=== PATIENT | female | born 1995 | race Caucasian/White ===

== ENCOUNTER → 2017-07-24 17:25 | Outpatient (CLI) | payer BC, SELFPAY ==
[2017-07-24 19:55] LABS: Thyroid Stimulating Hormone 1.29 uIU/ml (0.358-3.740)
== END ==
PROVIDERS: Family Provider Internal Medicine Adolescent Medicine; PCP Internal Medicine Adolescent Medicine; Visit Provider Obstetrics & Gynecology
DX: N93.8 Other specified abnormal uterine and vaginal bleeding (principal)
CPT/HCPCS: 36415; 84443

== ENCOUNTER → 2017-10-16 08:44 | Outpatient (POV) | payer BC, SELFPAY | PROVIDERS: Family Provider Internal Medicine Adolescent Medicine; PCP Internal Medicine Adolescent Medicine; Visit Provider Otolaryngology | DX: Z00.00 Encounter for general adult medical examination without abnormal findings (principal) ==

== ENCOUNTER → 2018-03-25 14:03 | Outpatient (CLI) | payer OTHER, SELFPAY ==
[2018-03-25 14:40] LABS: Urine Pregnancy, HCG Qual. Negative (Negative)
[2018-03-25 15:30] LABS: Basophils # 0.1 K/mm3 (0-0.2); Basophils % 0.6 % (0.1-2.0); Eosinophils # 0.2 K/mm3 (0.0-0.4); Eosinophils % 2.6 % (0.1-12.0); Hematocrit 39.3 % (37.0-47.0); Lymphocytes # 3.7 K/mm3 (0.7-4.5); Lymphocytes % 42.7 K/mm3 (10-50); Mean Corpuscular Hemoglobin 31.5 pg (27.0-31.2); Mean Corpuscular Volume 95.4 fl (81-99); Mean Platelet Volume 6.8 fl (7.4-10.4); Monocytes # 0.4 K/mm3 (0.1-1.0); Monocytes % 4.9 % (1.7-9.3); Neutrophils # 4.2 K/mm3 (1.8-7.8); Neutrophils % 49.2 % (37.0-80.0); Platelet Count 315 K/mm3 (142-424); Red Blood Count 4.12 M/mm3 (4.20-5.40); Red Cell Distribution Width 12.7 % (11.5-17.5); White Blood Count 8.6 K/mm3 (4.8-10.8)
[2018-03-25 16:20] LABS: Blood Urea Nitrogen 8 mg/dL (7-18); Creatinine,Serum 0.79 mg/dL (0.55-1.02); Estimated Glomerular Filt Rate 89 ml/min (>60); GFR (African American) 108 ML/MIN (>60)
== END ==
PROVIDERS: PCP Internal Medicine Adolescent Medicine; Visit Provider Otolaryngology
DX: R59.0 Localized enlarged lymph nodes (principal)
CPT/HCPCS: 36415; 81025; 82565; 84520; 85025

== ENCOUNTER → 2018-10-03 07:12 | Outpatient (CLI) | payer BC, SELFPAY ==
[2018-10-03 07:26] LABS: Basophils # 0.1 K/mm3 (0-0.2); Basophils % 0.9 % (0.1-2.0); Eosinophils # 0.2 K/mm3 (0.0-0.4); Eosinophils % 3.3 % (0.1-12.0); Hematocrit 43.4 % (37.0-47.0); Hemoglobin 14.7 g/dL (12.2-16.2); Lymphocytes % 52.5 % (10-50); Mean Corpuscular HGB Conc 33.8 g/dL (31.8-35.4); Mean Corpuscular Hemoglobin 31.8 pg (27.0-31.2); Mean Corpuscular Volume 94.1 fl (81-99); Mean Platelet Volume 6.6 fl (7.4-10.4); Monocytes # 0.4 K/mm3 (0.1-1.0); Monocytes % 6.2 % (1.7-9.3); Neutrophils # 2.1 K/mm3 (1.8-7.8); Neutrophils % 37.2 % (37.0-80.0); Platelet Count 284 K/mm3 (142-424); Red Blood Count 4.61 M/mm3 (4.20-5.40); Red Cell Distribution Width 12.4 % (11.5-17.5); White Blood Count 5.7 K/mm3 (4.8-10.8)
[2018-10-03 07:32] LABS: Monoscreen (Rapid) Negative (Negative)
[2018-10-03 07:35] LABS: MANUAL DIFFERENTIAL MANUAL DIFFERENTIAL (MANUAL DIFF)
[2018-10-03 07:59] LABS: Blood Urea Nitrogen 11 mg/dL (7-18); Creatinine,Serum 0.66 mg/dL (0.55-1.02); Estimated Glomerular Filt Rate 109 ml/min (>60); GFR (African American) 132 ML/MIN (>60)
[2018-10-03 09:39] LABS: Eosinophils % 4 % (0-3); Lymphocytes % 53 % (10-50); Monocytes % 5 % (2-9); Neutrophils % 37 % (42-76); Platelet Estimate Normal; RBC Morphology Normal; Total Cells Counted 100
== END ==
PROVIDERS: Visit Provider Otolaryngology
DX: J34.89 Other specified disorders of nose and nasal sinuses (principal); R22.0 Localized swelling, mass and lump, head; R22.1 Localized swelling, mass and lump, neck
CPT/HCPCS: 36415; 82565; 84520; 85007; 85025; 86318

== ENCOUNTER → 2018-10-04 13:08 | Outpatient (CLI) | payer BC, SELFPAY ==
--- NOTE | 2018-10-04 13:10 | CT_ITS ---
CT soft tissue neck wo/w con INDICATION: Palpable nodule in the right side of the neck. ITS.REASON: neck swelling ORDERING PHYSICIAN: Pacheco Parra MD PATIENT AGE: 23 years COMPARISON: None TECHNIQUE: Axial images are obtained without and with contrast. 75 mL's Optiray 350 utilized. A BB is placed along the right side of the neck at the palpable abnormality Sagittal and coronal reformatted images are reviewed as well. All CT scans at the facility use one or more dose reduction, viz: automated exposure control, ma/kV adjustment per patient size (including targeted exams where dose is matched to indication, i.e. head), or iterative reconstruction technique. FINDINGS: The visualized aspect of the orbits have an unremarkable appearance. Unremarkable nasopharynx. No tonsillar or peritonsillar mass or abscess. There are scattered small nodes in the neck bilaterally. A BB is placed along the lateral aspect of the right neck. There is a small lymph node deep and just inferior to the placed BB measuring up to 10 x 10 mm. There are other smaller nodes in the neck. There is a nonspecific 5 mm hyperdensity in the mid aspect of the parotid on both sides and could be due to small nodes. There is a right-sided submandibular lymph node which measures 12 x 6 mm. No enlarged lymph nodes are apparent. No abscess. The thyroid gland has an unremarkable appearance. No glottic or subglottic mass evident. No prevertebral soft tissue swelling. The lung apices are clear. IMPRESSION: Scattered small lymph nodes are present in the neck. There is a 10 x 10 mm lymph node present just deep and inferior to the placed BB on the right which may correspond to the palpable abnormality. IMPRESSION: A
== END ==
PROVIDERS: PCP Internal Medicine Adolescent Medicine; Visit Provider Otolaryngology
DX: J34.89 Other specified disorders of nose and nasal sinuses (principal); R22.0 Localized swelling, mass and lump, head; R22.1 Localized swelling, mass and lump, neck
CPT/HCPCS: 70492; Q9967

== ENCOUNTER → 2019-07-07 16:03 | Outpatient (CLI) | payer OTHER, SELFPAY ==
[2019-07-07 17:38] LABS: Free Thyroxine Index 2.5 ug/dL (5.93-13.13); T4 (Thyroxine) 7.5 ug/dl (4.7-13.3); Thyroid Stimulating Hormone 1.36 uIU/ml (0.358-3.740); Triiodothryronine (T3) Uptake 33 % (31-39)
[2019-07-09 09:00] LABS: Prolactin 12.4 ng/mL (4.8-23.3)
[2019-07-09 11:58] LABS: Estradiol 35.4 pg/mL (.); FSH 4.7 mIU/mL (.); LH 9.3 mIU/mL (.); Thyroid Peroxidase Antibodies 13 IU/mL (0-34)
== END ==
PROVIDERS: Visit Provider Nurse Practitioner Obstetrics & Gynecology
DX: N97.0 Female infertility associated with anovulation (principal); R53.83 Other fatigue; N93.9 Abnormal uterine and vaginal bleeding, unspecified; N92.6 Irregular menstruation, unspecified
CPT/HCPCS: 36415; 82670; 83001; 83002; 84146; 84436; 84443; 84479; 86376

== ENCOUNTER → 2019-12-18 14:51 | Outpatient (CLI) | payer OTHER, SELFPAY ==
--- NOTE | 2019-12-18 14:51 | MR_ITS ---
PROCEDURE: MR ANGIO HEAD WO CON CLINICAL INDICATION: migraine, severe headache MIGRAINE HEADACHES, PTS DAD RECENTLY OF A CEREBRAL HEMORRHAGE AT A YOUNG AGE. COMPARISON: MR HEAD/BRAIN WO CON from 12/18/2019 TECHNIQUE: 3D [id number] images are obtained with multi slab reformats without contrast FINDINGS: No aneurysm, arteriovenous malformation, or major intracranial occlusive process is evident. There is persistent origin of the left posterior cerebral artery as a normal variant.. In the mid aspect of the basilar artery there is incomplete fusion consistent with basilar artery fenestration as a normal variant. IMPRESSION: 1. Essentially negative MRA of the brain. 2. 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
--- NOTE | 2019-12-18 14:51 | MR_ITS ---
PROCEDURE: MR HEAD/BRAIN WO CON CLINICAL INDICATION: Migraine, headache MIGRAINE HEADACHES, PTS DAD RECENTLY OF A CEREBRAL HEMORRHAGE A YOUNG AGE. COMPARISON: No exams were available for comparison TECHNIQUE: Routine multiplanar multi echo sequences are performed without gadolinium enhancement. FINDINGS: No midline shift, mass effect, intracranial hemorrhage, or hydrocephalus. No evidence of acute infarction The cerebellopontine angles, cerebellum, and brainstem are unremarkable. There is normal maria-white matter differentiation with no abnormal white matter signal intensity evident. The pituitary, optic chiasm, corpus callosum, and craniocervical junction have an unremarkable appearance. No mastoid effusion or sinus air-fluid level. IMPRESSION: Negative MRI of the brain without contrast Dictated by: Luis M Payne MD 12/19/2019 14:07 Electronically signed by Luis M Payne MD in [place] 12/19/2019 14:07
== END ==
PROVIDERS: PCP Internal Medicine Adolescent Medicine; Visit Provider Specialist
DX: G43.709 Chronic migraine without aura, not intractable, without status migrainosus (principal); Z82.49 Family history of ischemic heart disease and other diseases of the circulatory system
CPT/HCPCS: 70544; 70551

== ENCOUNTER → 2020-01-06 15:20 | Outpatient (POV) | payer OTHER, SELFPAY | PROVIDERS: PCP Internal Medicine Adolescent Medicine; Visit Provider Dermatology | DX: Z00.00 Encounter for general adult medical examination without abnormal findings (principal) ==

== ENCOUNTER → 2020-01-22 08:25 | Outpatient (CLI) | payer OTHER, SELFPAY | PROVIDERS: PCP Internal Medicine Adolescent Medicine; Visit Provider Internal Medicine Adolescent Medicine | DX: Z03.818 Encounter for observation for suspected exposure to other biological agents ruled out (principal) | CPT/HCPCS: U0003 ==

== ENCOUNTER → 2020-05-07 11:19 | Outpatient (CLI) | payer OTHER, SELFPAY ==
[2020-05-07 12:16] LABS: Adenovirus,PCR Not Detected (NotDetected); Bordetella Pertussis Not Detected (NotDetected); Chlamydophila Pneumoniae, PCR Not Detected (NotDetected); Coronavirus 229E Not Detected (NotDetected); Coronavirus NL63 Not Detected (NotDetected); Coronavirus OC43 Not Detected (NotDetected); Coronovirus HKU1,PCR Not Detected (NotDetected); Human Metapneumovirus Not Detected (NotDetected); Influenza A, PCR Not Detected (NotDetected); Influenza AH1, 2009 Not Detected (NotDetected); Influenza AH1, PCR Not Detected (NotDetected); Influenza AH3,PCR Not Detected (NotDetected); Influenza B, PCR Not Detected (NotDetected); Mycoplasma Pneumoniae, PCR Not Detected (NotDetected); Parainfluenza 1, PCR Not Detected (NotDetected); Parainfluenza 2, PCR Not Detected (NotDetected); Parainfluenza 3, PCR Not Detected (NotDetected); Parainfluenza 4, PCR Not Detected (NotDetected); Respiratory Syncytial Virus Not Detected (NotDetected); Rhinovirus/Enterovirus Not Detected (NotDetected)
[2020-05-07 14:58] LABS: Coronavirus 19, PCR Detected (NotDetected)
== END ==
PROVIDERS: PCP Internal Medicine Adolescent Medicine; Referring Provider Internal Medicine Adolescent Medicine; Visit Provider Internal Medicine Adolescent Medicine
DX: Z20.828 Contact with and (suspected) exposure to other viral communicable diseases (principal); U07.1 COVID-19
CPT/HCPCS: 87581; 87633; 87798; U0003

== ENCOUNTER → 2020-08-13 15:10 | Outpatient (CLI) | payer OTHER, SELFPAY ==
--- NOTE | 2020-08-13 15:10 | US_ITS ---
PROCEDURE: US THYROID CLINICAL INDICATION: Thryoid nodule rt neck COMPARISON: US THY US THYROID from 11/19/2013 FINDINGS: Palpable nodule in the right neck measures 7 x 4 mm and is not within the thyroid gland but within the subcutaneous tissues with a focal area of increased echogenicity centrally and may be due to a lymph node. The right lobe is 2.7 x 1.1 cm. Left lobe is 3.4 x 1 cm. No thyroid mass or other significant anomaly. IMPRESSION: Unremarkable thyroid ultrasound. Palpable nodule in the right neck may represent a small lymph node Dictated by: Luis M Payne MD 08/13/2020 17:01 Luis M Payne MD in [place] 08/13/2020 17:01
== END ==
PROVIDERS: PCP Physician Assistant; Visit Provider Otolaryngology
DX: E04.1 Nontoxic single thyroid nodule (principal); R59.0 Localized enlarged lymph nodes; R59.9 Enlarged lymph nodes, unspecified
CPT/HCPCS: 76536

== ENCOUNTER → 2020-08-20 14:36 | Outpatient (CLI) | payer OTHER, SELFPAY ==
--- NOTE | 2020-08-20 14:45 | XR_ITS ---
PROCEDURE: XR ANKLE WT BEARING RT MIN 3V CLINICAL INDICATION: pain COMPARISON: CR XR FOOT WT BEARING RT 3V from 08/20/2020 FINDINGS: No fracture or dislocation. No lytic or blastic change. There is normal mineralization. The joint spaces are well-preserved. No significant degenerative/arthritic changes. No erosive changes evident. Other findings:None. IMPRESSION: No acute findings. Dictated by: Luis M Payne MD 08/20/2020 15:40 Luis M Payne MD in [place] 08/20/2020 15:40
--- NOTE | 2020-08-20 14:45 | XR_ITS ---
PROCEDURE: XR ANKLE WT BEARING LT MIN 3V CLINICAL INDICATION: pain COMPARISON: CR XR FOOT WT BEARING LT 3V from 08/20/2020 FINDINGS: No fracture or dislocation. No lytic or blastic change. There is normal mineralization. The joint spaces are well-preserved. No significant degenerative/arthritic changes. No erosive changes evident. Other findings:None. IMPRESSION: No acute findings. Dictated by: Luis M Payne MD 08/20/2020 15:40 Luis M Payne MD in [place] 08/20/2020 15:40
== END ==
PROVIDERS: PCP Internal Medicine Adolescent Medicine; Visit Provider Podiatrist
DX: M79.672 Pain in left foot (principal); M25.572 Pain in left ankle and joints of left foot; M79.671 Pain in right foot; M25.571 Pain in right ankle and joints of right foot
CPT/HCPCS: 73610; 73630

== ENCOUNTER → 2020-10-27 09:31 | Outpatient (CLI) | payer OTHER, SELFPAY ==
[2020-10-27 10:07] LABS: Basophils # 0.1 K/mm3 (0-0.2); Basophils % 0.6 % (0.1-2.0); Eosinophils # 0.2 K/mm3 (0.0-0.4); Eosinophils % 2.9 % (0.1-12.0); Hematocrit 39.9 % (37.0-47.0); Hemoglobin 13.6 g/dL (12.2-16.2); Lymphocytes # 2.9 K/mm3 (0.7-4.5); Lymphocytes % 35.3 % (10-50); Mean Corpuscular HGB Conc 34.2 g/dL (31.8-35.4); Mean Corpuscular Hemoglobin 31.8 pg (27.0-31.2); Mean Corpuscular Volume 93.1 fl (81-99); Mean Platelet Volume 6.7 fl (7.4-10.4); Monocytes # 0.6 K/mm3 (0.1-1.0); Neutrophils # 4.5 K/mm3 (1.8-7.8); Neutrophils % 54.2 % (37.0-80.0); Platelet Count 312 K/mm3 (142-424); Red Blood Count 4.29 M/mm3 (4.20-5.40); Red Cell Distribution Width 12.6 % (11.5-17.5); White Blood Count 8.2 K/mm3 (4.8-10.8)
[2020-10-27 10:57] LABS: Chloride 103 mmol/L (98-107); Potassium 3.7 mmoL/L (3.5-5.1); Sodium 138 mmol/L (136-145)
[2020-10-27 11:00] LABS: Alanine Aminotransferase 29 U/L (12-78); Albumin Level 4.5 g/dl (3.5-5.0); Albumin/Globulin Ratio 1.9 (1.1-1.8); Alkaline Phosphatase 55 U/L (38-126); Anion Gap 12.7 mEq/L (5-15); Aspartate Amino Transferase 28 U/L (14-36); Bilirubin,Total 1.5 mg/dl (0.2-1.3); Blood Urea Nitrogen 9 mg/dl (7-17); Calcium 9.4 mg/dl (8.4-10.2); Carbon Dioxide 26 mmol/L (22.0-30.0); Estimated Glomerular Filt Rate 86 ml/min (>60); GFR (African American) 104 ML/MIN (>60); Globulin 2.4 g/dL (1.3-3.2); Glucose 90 mg/dl (74-100); Total Protein,Serum 6.9 g/dl (6.3-8.2)
[2020-10-27 11:07] LABS: C-Reactive Protein 9.4 mg/L (0-4)
[2020-10-27 11:08] LABS: Erythrocyte Sedimentation Rate 16 mm/hr (0-20)
[2020-10-28 15:16] LABS: Antiscleroderma-70 Antibodies <0.2 AI (0.0-0.9)
[2020-10-29 04:14] LABS: Anti-DNA (DS) Ab Qn <1 IU/mL (0-9); Hepatitis B Surf Ab Quant <3.1 mIU/mL (Immunity>9.9); Hepatitis C Antibody <0.1 s/co ratio (0.0-0.9)
[2020-10-29 04:15] LABS: Anti-Cyclic Citrullinated Pept 2 units (0-19)
== END ==
PROVIDERS: Visit Provider Internal Medicine Adolescent Medicine
DX: I77.6 Arteritis, unspecified (principal)
CPT/HCPCS: 36415; 80053; 85025; 85651; 86140; 86200; 86225; 86235; 86706; 87380

== ENCOUNTER → 2020-11-08 13:29 | Outpatient (CLI) | payer OTHER, SELFPAY ==
--- NOTE | 2020-11-08 13:36 | CT_ITS ---
Procedure: CT ANGIO UE LT CLINICAL HISTORY: VASCULITIS Covid in May 2020 Diagnosed with covid finger in lt index finger Painful and discolored finger COMPARISON: No exams were available for comparison TECHNIQUE: IV Contrast: 100ml Isovue 370 Axial images obtained with sagittal and coronal reformats. All CT scans at the facility use one or more dose reduction, viz: automated exposure control, ma/kV adjustment per patient size (including targeted exams where dose is matched to indication, i.e. head), or iterative reconstruction technique. FINDINGS: The aortic arch, subclavian artery, axillary artery, and brachial arteries have an unremarkable appearance. The radial and ulnar and interosseous arteries are patent.. The ulnar and radial arteries are patent within the wrist and hand. The common palmar digital arteries are patent. The dorsal digital arteries are not well demonstrated. The proper palmar digital arteries are visualized to the proximal phalanges. There is decreased opacification of the proper palmar digital arteries to the index finger. The superficial palmar arch is demonstrated. The deep palmar arch is not well demonstrated but could be due to contrast timing. No acute bony anomalies. IMPRESSION: 1. Visualized anatomic arterial structures are intact in the left upper extremity with the exception of decreased enhancement of the proper palmar digital arteries to the index finger which could very well be due to vasculitis. Dictated by: Luis M Pyane MD 11/09/2020 09:44 Luis M Payne MD in [place] 11/09/2020 09:44
== END ==
PROVIDERS: PCP Internal Medicine Adolescent Medicine; Visit Provider Internal Medicine Adolescent Medicine
DX: I77.6 Arteritis, unspecified (principal)
CPT/HCPCS: 73206; Q9967

== ENCOUNTER 2021-01-10 10:22 | Emergency (ER) | payer OTHER, SELFPAY ==
[2021-01-10 12:08] VITALS: RESP 20; TEMP 37; O2SAT 99; BMI 25.6
--- NOTE | 2021-01-10 12:12 | HMH.EDUTC ---
[facility] Disposition Clinical Impression: Viral syndrome Pharyngitis Qualifiers: Pharyngitis/tonsillitis etiology: unspecified etiology Qualified Code(s): J02.9 - Acute pharyngitis, unspecified Disposition: Home, Self-Care Condition on Discharge: Good Instructions: Preventing the Spread of Coronavirus Discharge Instructions Additional Instructions: Drink plenty of fluids. Take tylenol or ibuprofen for pain or fever. Take the medications as directed. Follow up with your regular doctor. GO TO THE ER FOR ANY WORSENING SYMPTOMS Quarantine until you know the results of your covid-19 test. If it is positive, the health department should call you and give you further instructions about your length of quarantine. Prescriptions: Ondansetron [Zofran 4mg ODT] 4 mg PO Q8HP PRN #20 tab.rapdis PRN Reason: Nausea Transmission Status: Received by [facility] e(ye)BRAIN Referrals: Francois Thomas MD [Primary Care Provider] - Forms: Work/School Release Time of Disposition: 12:50 Medical Decision Making - Medical Records Medical records reviewed: No: I reviewed the patient's medical records. - Richie Inquiry Pt receiving controlled substance: No Vital Signs: 01/10/21 12:08 01/10/21 13:03 Temperature 98.6 F 98.4 F Temperature Source Oral Pulse Rate 85 Respiratory Rate 20 18 Blood Pressure 104/68 L 02 Sat by Pulse Oximetry 99 - Lab Data Lab results reviewed: Yes: I reviewed the patient's lab results. Lab Results 01/10/21 12:12: Chlamy pneumoniae PCR Not detected, Adenovirus (PCR) Not detected, B. pertussis DNA (PCR) Not detected, Coronavirus OC43 (PCR) Not detected, Coronavirus HKU1 (PCR) Not detected, Coronavirus 229E (PCR) Not detected, SARS-CoV-2 (PCR) Not detected, Coronavirus NL63 (PCR) Not detected, Human Metapneumovir PCR Not detected, Influenza A (H1) PCR Not detected, Influ A (H1N1/09) PCR Not detected, Influenza A (H3) PCR Not detected, Influenza Type A (PCR) Not detected, Influenza Type B (PCR) Not detected, M. pneumoniae (PCR) Not detected, Parainfluenza 1 (PCR) Not detected, Parainfluenza 2 (PCR) Not detected, Parainfluenza 3 (PCR) Not detected, Parainfluenza 4 (PCR) Not detected, RSV (PCR) Detected A, Entero/Rhino (PCR) Not detected 01/10/21 12:58: Strep Scn Rapid Clinic Negative Orders (Tests/Meds): ORDERS Category Date Time Status Strep Screen Confirmation Stat Micro 01/10/21 12:58 Received [facility] HPI - General Stated complaint: covid symptoms Time Seen by Provider: 01/10/21 12:13 - History of Present Illness Provider Complaint: She states that she has felt bad for the past 4 to 5 days. She initially thought she had a sinus infection, but she has been feeling worse instead of getting better since starting a z-pack 3 days ago. 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 She denies any known covid-19 exposures. - Related Data Home Medications Medication Instructions Recorded Confirmed ubrogepant 50 mg tablet 50 mg PO PRN tab 08/23/20 11/17/20 Previous Rx's Medication Instructions Recorded phentermine 37.5 mg tablet 37.5 mg PO DAILY #30 tab 11/17/20 Ondansetron [Zofran 4mg ODT] 4 mg PO Q8HP PRN #20 tab.rapdis 01/10/21 Allergies Allergy/AdvReac Type Severity Reaction Status Date / Time naproxen [From Aleve] Allergy Severe Heart Verified 01/10/21 12:11 Palpitations cetirizine [From Zyrtec] Allergy Mild Drowsiness Verified 01/10/21 12:11 [facility] History - Hepatitis A Screen Attestation statement:: This patient has been screened for Hepatitis A risk factors. I have reviewed the patient's past medical history: Yes Medical History: Reports:: Migraine Denies:: Cancer, Diabetes Mellitus Type 1, Diabetes Mellitus Type 2, Internal Pacemaker, MRSA, Seizures Other Medical History: Reports: Anemia. Denies: Blood Transfusion Reaction Comment: Anemia as child. Chronic Tonsillitis. Fibrocystic breasts. Gardasil. IBS. Deviated Septum Laterality
[2021-01-10 12:23] LABS: Adenovirus,PCR Not Detected (NotDetected); Bordetella Pertussis Not Detected (NotDetected); Chlamydophila Pneumoniae, PCR Not Detected (NotDetected); Coronavirus 19, PCR Not Detected (NotDetected); Coronavirus 229E Not Detected (NotDetected); Coronavirus NL63 Not Detected (NotDetected); Coronavirus OC43 Not Detected (NotDetected); Coronovirus HKU1,PCR Not Detected (NotDetected); Human Metapneumovirus Not Detected (NotDetected); Influenza A, PCR Not Detected (NotDetected); Influenza AH1, 2009 Not Detected (NotDetected); Influenza AH1, PCR Not Detected (NotDetected); Influenza AH3,PCR Not Detected (NotDetected); Influenza B, PCR Not Detected (NotDetected); Mycoplasma Pneumoniae, PCR Not Detected (NotDetected); Parainfluenza 1, PCR Not Detected (NotDetected); Parainfluenza 2, PCR Not Detected (NotDetected); Parainfluenza 3, PCR Not Detected (NotDetected); Parainfluenza 4, PCR Not Detected (NotDetected); Rhinovirus/Enterovirus Not Detected (NotDetected)
[2021-01-10 13:03] VITALS: BP 104/68; PULSE 85; RESP 18; TEMP 36.9
[2021-01-10 13:04] LABS: UTC Strep Screen (Rapid) Negative (Negative)
[2021-01-10 16:34] LABS: Respiratory Syncytial Virus Detected (NotDetected)
== END 2021-01-10 13:03 | disposition home or self-care (01) ==
PROVIDERS: Emergency Provider Nurse Practitioner Family; PCP Internal Medicine Adolescent Medicine
DX: J02.9 Acute pharyngitis, unspecified (principal); B34.9 Viral infection, unspecified; B97.4 Respiratory syncytial virus as the cause of diseases classified elsewhere; G43.709 Chronic migraine without aura, not intractable, without status migrainosus
CPT/HCPCS: 87581; 87633; 87798; 87880; 99202; G0463

== ENCOUNTER 2021-04-04 10:30 | Emergency (ER) | payer OTHER, SELFPAY ==
[2021-04-04 11:20] VITALS: BP 126/79; PULSE 80; RESP 20; TEMP 36.8; O2SAT 95; BMI 26.0
[2021-04-04 11:46] LABS: UTC Strep Screen (Rapid) Negative (Negative)
[2021-04-04 12:02] LABS: Coronavirus 19, PCR Not Detected (NotDetected); Influenza A, PCR Not Detected (NotDetected); Influenza B, PCR Not Detected (NotDetected)
--- NOTE | 2021-04-04 12:11 | HMH.EDUTC ---
[facility] [place] Disposition Clinical Impression: Viral syndrome Disposition: Home, Self-Care Condition on Discharge: Good Instructions: DI for Viral Syndrome, Preventing the Spread of Coronavirus Discharge Instructions Additional Instructions: Drink plenty of fluids. Take tylenol or ibuprofen for pain or fever. Take the medications as directed. Follow up with your regular doctor. GO TO THE ER FOR ANY WORSENING SYMPTOMS Quarantine until you know the results of your covid-19 test. If it is positive, the health department should call you and give you further instructions about your length of Quarantine and other things. Notify your school or workplace of your results and follow their instructions regarding return to work/school. Referrals: Francois Thomas MD [Primary Care Provider] - Forms: Work/School Release Time of Disposition: 12:12 Medical Decision Making - Medical Records Medical records reviewed: No: I reviewed the patient's medical records. - Richie Inquiry Pt receiving controlled substance: No Vital Signs: 04/04/21 11:20 04/04/21 12:15 Temperature 98.3 F 98.2 F Temperature Source Oral Oral Pulse Rate 80 Pulse Rate [Right Brachial] 80 Respiratory Rate 20 16 Blood Pressure 126/80 Blood Pressure [Right Arm] 126/79 Blood Pressure Mean [Right Arm] 94 Blood Pressure Source Automatic Cuff Blood Pressure Source [Right Arm] Automatic Cuff Blood Pressure Position Sitting Blood Pressure Position [Right Arm] Sitting 02 Sat by Pulse Oximetry 95 Oxygen Delivery Method Room Air Room Air - Lab Data Lab results reviewed: Yes: I reviewed the patient's lab results. Lab Results 04/04/21 11:30: SARS-CoV-2 (PCR) Not detected, Influenza A Untype (PCR) Not detected, Influenza Type B (PCR) Not detected 04/04/21 11:45: Strep Scn Rapid Clinic Negative Orders (Tests/Meds): ORDERS Category Date Time Status Full Resp Panel w/COVID ([facility]) Routine Lab 04/04/21 13:02 Ordered Strep Screen Confirmation Routine Micro 04/04/21 11:45 Received [facility] [place] HPI - General Stated complaint: covid test/symptoms Time Seen by Provider: 04/04/21 11:25 Mode of Arrival: Ambulatory Source of Information: Patient Limitations: No Limitations Description of Symptoms (Recalled from Triage Doc. by RN): PATIENT C/O DRY COUGH, SORE THROAT (1 WEEK), HEADACHE, AND DIARRHEA. HEENT Symptoms (Recalled from RN notes): Yes Resp Symptoms (Recalled from RN notes): No Skin Symptoms (Recalled from RN notes): No MS Symptoms (Recalled from RN notes): No Functional Status (Recalled from RN notes): WNL - History of Present Illness Provider Complaint: She states that for the past 1 week she has had a productive cough, chest congestion, scratchy throat, and she has felt bad. 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 She has not been vaccinated against covid-19. She did have covid-19 about 7 months ago and she states that she does not feel like she did at that time. - Related Data Allergies Allergy/AdvReac Type Severity Reaction Status Date / Time naproxen [From Aleve] Allergy Severe Heart Verified 02/28/21 08:58 Palpitations cetirizine [From Zyrtec] Allergy Mild Drowsiness Verified 02/28/21 08:58 - Worker's Comp Is this a Worker's Comp case?: No [facility] History - Hepatitis A Screen Drug use history?: No High risk sexual behaviors?: No History of sexually transmitted infection?: No Currently employed?: No Childcare worker?: No Do you have indoor plumbing?: Yes Do you have electricity?: Yes Attestation statement:: This patient has been screened for Hepatitis A risk factors. I have reviewed the patient's past medical history: Yes Medical History: Reports:: Migraine Denies:: Cancer, Diabetes Mellitus Type 1, Diabetes Mellitus Type 2, Internal Pacemaker, MRSA, Seizures Other Medical History: Reports: Anemia. Denies: Blood Transfusion Reaction Comment: Raynaud Laterality Cases: Bilateral: Myringotomy (Ear Tubes
[2021-04-04 12:15] VITALS: BP 126/80; PULSE 80; RESP 16; TEMP 36.8; O2SAT 98
[2021-04-04 13:10] LABS: Adenovirus,PCR Not Detected (NotDetected); Bordetella Pertussis Not Detected (NotDetected); Chlamydophila Pneumoniae, PCR Not Detected (NotDetected); Coronavirus 19, PCR Not Detected (NotDetected); Coronavirus 229E Not Detected (NotDetected); Coronavirus NL63 Not Detected (NotDetected); Coronavirus OC43 Not Detected (NotDetected); Coronovirus HKU1,PCR Not Detected (NotDetected); Human Metapneumovirus Not Detected (NotDetected); Influenza A, PCR Not Detected (NotDetected); Influenza AH1, 2009 Not Detected (NotDetected); Influenza AH1, PCR Not Detected (NotDetected); Influenza AH3,PCR Not Detected (NotDetected); Influenza B, PCR Not Detected (NotDetected); Mycoplasma Pneumoniae, PCR Not Detected (NotDetected); Parainfluenza 1, PCR Not Detected (NotDetected); Parainfluenza 2, PCR Not Detected (NotDetected); Parainfluenza 3, PCR Not Detected (NotDetected); Parainfluenza 4, PCR Not Detected (NotDetected); Respiratory Syncytial Virus Not Detected (NotDetected); Rhinovirus/Enterovirus Not Detected (NotDetected)
== END 2021-04-04 12:16 | disposition home or self-care (01) ==
PROVIDERS: Emergency Provider Nurse Practitioner Family; PCP Internal Medicine Adolescent Medicine
DX: B34.9 Viral infection, unspecified (principal); Z20.822 Contact with and (suspected) exposure to COVID-19
CPT/HCPCS: 87581; 87632; 87798; 87880; 99203; C9803; G0463; U0003; U0005

== ENCOUNTER 2021-11-04 11:01 | Emergency (ER) | payer BC, SELFPAY ==
[2021-11-04 11:10] VITALS: BP 101/76; PULSE 92; RESP 17; TEMP 36.6; O2SAT 98; BMI 25.6
--- NOTE | 2021-11-04 11:12 | HMH.EDUTC ---
[facility] [place] Clinical Impression: Viral syndrome Pharyngitis Qualifiers: Pharyngitis/tonsillitis etiology: unspecified etiology Qualified Code(s): J02.9 - Acute pharyngitis, unspecified Disposition: Home, Self-Care Condition on Discharge: Good Instructions: DI for Pharyngitis/Tonsillopharyngitis -- Adult Additional Instructions: Drink plenty of fluids. Take tylenol or ibuprofen for pain or fever. Take the medications as directed. Follow up with your regular doctor. GO TO THE ER FOR ANY WORSENING SYMPTOMS Prescriptions: Brompheniramine/Pseudoephed/Dm [Bromfed Dm Cough Syrup] 5 ml PO Q6HP PRN #240 ml PRN Reason: Cough Transmission Status: Received by [facility] Amoxicillin [Amoxicillin 875MG Tab] 875 mg PO Q12H #20 tab Transmission Status: Received by [facility] methylPREDNISolone [Medrol] 4 mg PO DIRECTED 6 Days #21 packet Transmission Status: Received by [facility] Referrals: Francois Thomas MD [Primary Care Provider] - Forms: Work/School Release Time of Disposition: 11:36 Medical Decision Making - Medical Records Medical records reviewed: No: I reviewed the patient's medical records. - Richie Inquiry Pt receiving controlled substance: No Vital Signs: 11/04/21 11:10 11/04/21 11:43 Temperature 97.8 F 97.8 F Temperature Source Oral Pulse Rate 92 H Pulse Rate [Left Radial] 92 H Respiratory Rate 17 17 Blood Pressure 101/76 L Blood Pressure [Right Arm] 101/76 L Blood Pressure Mean [Right Arm] 84 02 Sat by Pulse Oximetry 98 - Lab Data Lab results reviewed: Yes: I reviewed the patient's lab results. Lab Results 11/04/21 11:08: Group A Strep Rapid Negative Orders (Tests/Meds): ORDERS Category Date Time Status Covid-19 Nasal PCR ([facility]) Routine Lab 11/04/21 11:34 Ordered Strep Screen Confirmation Stat Micro 11/04/21 11:08 [place] [facility] [place] - General Stated complaint: ear pain, sore throat, fever, cough Time Seen by Provider: 11/04/21 11:12 - History of Present Illness Provider Complaint: She states that for the past 3 days she has had a worsening sore throat, chills, low grade fever, and fatigue. She states that she feels like she has strep throat. She usually gets it every spring. - Related Data Previous Rx's Medication Instructions Recorded clomiphene citrate 50 mg tablet 50 mg PO DAILY 5 Days #5 tab 10/04/21 Amoxicillin [Amoxicillin 875MG 875 mg PO Q12H #20 tab 11/04/21 Tab] Brompheniramine/Pseudoephed/Dm 5 ml PO Q6HP PRN #240 ml 11/04/21 [Bromfed Dm Cough Syrup] methylPREDNISolone [Medrol] 4 mg PO DIRECTED 6 Days #21 11/04/21 packet Allergies Allergy/AdvReac Type Severity Reaction Status Date / Time naproxen Allergy Severe Heart Verified 11/04/21 11:17 Palpitations [facility] History - Hepatitis A Screen Attestation statement:: This patient has been screened for Hepatitis A risk factors. I have reviewed the patient's past medical history: Yes Medical History: Reports:: Migraine Denies:: Cancer, Diabetes Mellitus Type 1, Diabetes Mellitus Type 2, Internal Pacemaker, MRSA, Seizures Other Medical History: Reports: Anemia. Denies: Blood Transfusion Reaction Comment: Raynaud Laterality Cases: Bilateral: Myringotomy (Ear Tubes), Other Other Surgeries: Yes: No Previous Surgery, Colonoscopy, Plastic Surgery, Other. No: Pacemaker Amputation: No Fractures: No Comment: Ear tubes X 3 as child. Plastic surgery on left cheek and nose as child--1998. [place] teeth removal--2011. Nevus removal from lip (benign)--2012. Colonoscopy w/ polyps removed (benign)-03/2017. Nasal Septo---2019 - Social History Smoking Status: Never smoker Alcohol Intake: current Alcohol Intake Frequency:: a few times a month Substance Use Type: denies use Occupational Status: other Housing: house Household Members: significant other Family Hx:: Cancer, Diabetes, Heart Attack, Hyperlipidemia, Hypertension
[2021-11-04 11:26] LABS: Strep Scrn Group A (Rapid) Negative (Negative)
[2021-11-04 11:43] VITALS: BP 101/76; PULSE 92; RESP 17; TEMP 36.6
== END 2021-11-04 11:46 | disposition home or self-care (01) ==
PROVIDERS: Emergency Provider Nurse Practitioner Family; PCP Internal Medicine Adolescent Medicine
DX: J02.9 Acute pharyngitis, unspecified (principal); B34.9 Viral infection, unspecified
CPT/HCPCS: 87430; 99212; G0463

== ENCOUNTER → 2021-11-21 14:30 | Outpatient (CLI) | payer BC, SELFPAY ==
[2021-11-21 16:07] LABS: HCG,Quantitative 230 mIU/ml (0-5.42)
== END ==
PROVIDERS: PCP Internal Medicine Adolescent Medicine; Visit Provider Obstetrics & Gynecology
DX: N92.6 Irregular menstruation, unspecified (principal); J06.9 Acute upper respiratory infection, unspecified
CPT/HCPCS: 36415; 84702

== ENCOUNTER → 2021-11-23 16:00 | Outpatient (CLI) | payer BC, SELFPAY ==
[2021-11-23 17:32] LABS: HCG,Quantitative 655 mIU/ml (0-5.42)
== END ==
LOC: LAB 16:01
PROVIDERS: PCP Internal Medicine Adolescent Medicine; Visit Provider Obstetrics & Gynecology
DX: Z34.90 Encounter for supervision of normal pregnancy, unspecified, unspecified trimester (principal)
CPT/HCPCS: 36415; 84702

== ENCOUNTER → 2021-12-08 15:36 | Outpatient (CLI) | payer BC, SELFPAY ==
[2021-12-08 16:21] LABS: Basophils # 0.3 K/mm3 (0-0.2); Basophils % 2.3 % (0.1-2.0); Eosinophils # 0.2 K/mm3 (0.0-0.4); Eosinophils % 1.3 % (0.1-12.0); Hematocrit 41.3 % (37.0-47.0); Hemoglobin 13.5 g/dL (12.2-16.2); Lymphocytes # 3.1 K/mm3 (0.7-4.5); Lymphocytes % 24.4 % (10-50); Mean Corpuscular HGB Conc 32.7 g/dL (31.8-35.4); Mean Corpuscular Hemoglobin 32.7 pg (27.0-31.2); Mean Corpuscular Volume 99.8 fl (81-99); Mean Platelet Volume 6.9 fl (7.4-10.4); Monocytes # 0.6 K/mm3 (0.1-1.0); Monocytes % 5.1 % (1.7-9.3); Neutrophils # 8.4 K/mm3 (1.8-7.8); Neutrophils % 66.9 % (37.0-80.0); Platelet Count 409 K/mm3 (142-424); Red Blood Count 4.14 M/mm3 (4.20-5.40); Red Cell Distribution Width 13.2 % (11.5-17.5); White Blood Count 12.6 K/mm3 (4.8-10.8)
[2021-12-10 08:30] LABS: HIV Screen 4th Generation wRfx Non Reactive (Non Reactive); Hepatitis B Surface Antigen Negative (Negative); Hepatitis C Antibody 0.1 s/co ratio (0.0-0.9); Rubella Antibodies, IgG 3.53 index (Immune >0.99)
[2021-12-10 13:09] LABS: Rapid Plasma Reagin Ab Titer Non Reactive (NonRea<1:1)
== END ==
PROVIDERS: PCP Internal Medicine Adolescent Medicine; Visit Provider Obstetrics & Gynecology
DX: Z34.90 Encounter for supervision of normal pregnancy, unspecified, unspecified trimester (principal)
CPT/HCPCS: 85025; 86592; 86703; 86762; 86850; 87340; 87380; G0432

== ENCOUNTER → 2021-12-22 14:34 | Outpatient (CLI) | payer BC, OTHER, SELFPAY ==
[2021-12-24 08:18] LABS: Progesterone 27.8 ng/mL (.)
== END ==
PROVIDERS: PCP Internal Medicine Adolescent Medicine; Visit Provider Obstetrics & Gynecology
DX: Z34.90 Encounter for supervision of normal pregnancy, unspecified, unspecified trimester (principal)
CPT/HCPCS: 36415; 84144; 84702

== ENCOUNTER → 2021-12-27 11:05 | Outpatient (CLI) | payer BC, OTHER, SELFPAY ==
--- NOTE | 2021-12-27 11:08 | US_ITS ---
FINAL REPORT CLINICAL HISTORY: Viability FINDINGS: Sonographic images of the pelvis were obtained. A single, living intrauterine is noted. A yolk sac is present and measures 0.74 cm. [place] to rump length measures 22.18 mm which corresponds to 9 weeks 0 days gestation. Heartbeat is identified and measures 176 beats per minute. There is a crescentic hypo echogenicity adjacent to the gestational sac which could represent a very small subchorionic hemorrhage. The right ovary measures 3.7 x 2.3 x 3.5 cm and is within normal limits. The left ovary measures 3.4 x 3.0 x 3.4 cm and is within normal limits. IMPRESSION: Single, living, intrauterine gestation with 9 weeks 0 days gestational age. Reviewed, Interpreted and Dictated by Oralia Scruggs MD Transcribed by Azra Hoffmann Authenticated and [facility]
== END ==
PROVIDERS: PCP Internal Medicine Adolescent Medicine; Visit Provider Obstetrics & Gynecology
DX: Z34.90 Encounter for supervision of normal pregnancy, unspecified, unspecified trimester (principal)
CPT/HCPCS: 36415; 76801; 84702

== ENCOUNTER 2022-01-13 15:00 | Emergency (ER) | payer BC, OTHER, SELFPAY ==
--- NOTE | 2022-01-13 15:29 | HMH.EDUTC ---
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 Follow their directions about serial lab work. Referrals: Francois Thomas MD [Primary Care Provider] - Time of Disposition: 15:42 Medical Decision Making - Medical Records Medical records reviewed: No: I reviewed the patient's medical records. - Richie Inquiry Pt receiving controlled substance: No Vital Signs: 01/13/22 15:31 01/13/22 15:49 Temperature 98.2 F 98.2 F Temperature Source Oral Pulse Rate 87 Pulse Rate [Left] 103 H Respiratory Rate 15 15 Blood Pressure 116/50 L Blood Pressure [Right Arm] 116/50 L Blood Pressure Mean [Right Arm] 72 02 Sat by Pulse Oximetry 95 - Lab Data Lab Results 01/13/22 15:48: HIV 1&2 Ag/Ab, 4th Gen Non reactive Orders (Tests/Meds): ORDERS Category Date Time Status HIV Panel [id number] Stat Lab 01/13/22 15:48 Results Hepatitis Panel (4) Stat Lab 01/13/22 15:48 Results [facility] [place] HPI - General Stated complaint: WC 01/13/22 needlestick Time Seen by Provider: 01/13/22 15:33 - History of Present Illness Provider Complaint: She states that she got a needle stick at her work and she is here to have the necessary lab work drawn. Her tetanus immunization is up to date. - Related Data Home Medications Medication Instructions Recorded Confirmed PNV 153-FA 400 mcg-om3 35 mg-dha tab PO 12/08/21 01/11/22 25 mg-epa 5 mg-fish oil chew tablet Previous Rx's Medication Instructions Recorded doxylamine succinate 25 mg tablet 12.5 mg PO HS #30 tab 12/08/21 pyridoxine (vitamin B6) 25 mg 25 mg PO TID #90 tab 12/08/21 tablet ondansetron 4 mg disintegrating 4 mg PO Q8H PRN #20 tab 01/11/22 tablet Allergies Allergy/AdvReac Type Severity Reaction Status Date / Time naproxen Allergy Severe Heart Verified 01/13/22 15:37 Palpitations [facility] History - Hepatitis A Screen Attestation statement:: This patient has been screened for Hepatitis A risk factors. I have reviewed the patient's past medical history: Yes Medical History: Reports:: Migraine Denies:: Cancer, Diabetes Mellitus Type 1, Diabetes Mellitus Type 2, Internal Pacemaker, MRSA, Seizures Other Medical History: Reports: Anemia. Denies: Blood Transfusion Reaction Comment: Raynaud Laterality Cases: Bilateral: Myringotomy (Ear Tubes), Other Other Surgeries: Yes: No Previous Surgery, Colonoscopy, Plastic Surgery, Other. No: Pacemaker Amputation: No Fractures: No Comment: Ear tubes X 3 as child. Plastic surgery on left cheek and nose as child--1998. [place] teeth extraction--2011. Nevus removal from lip (benign)--2012. Colonoscopy w/ polyps removed (benign)-03/2017. Nasal Septo---2019 - Social History Smoking Status: Never smoker Alcohol Intake: current Alcohol Intake Frequency:: a few times a month Substance Use Type: denies use Occupational Status: other Housing: house Household Members: significant other Family Hx:: Cancer, Diabetes, Heart Attack, Hyperlipidemia, Hypertension, Kidney Disease, Stroke, Thyroid Disorder, Substance abuse, Alcoholism, Anemia, Asthma, Bleeding Disorder [employer] history: No [employer] history Comment: LMP: 07/12/2017 ROS Obtained: Yes All systems reviewed & no additional complaints - Constitutional Constitutional: Reports system reviewed and no additional complaints, except as docu - Eyes Eyes: Reports system reviewed and no additional complaints, except as docu - ENT Ears, Nose, Mouth, and Throat: Reports system reviewed and no additional complaints, except as docu - Cardiovascular Cardiovascular: Reports system reviewed and no additional complaints, except as docu - Respiratory Respiratory: Reports system reviewed and no additional complaints, except as docu - Gastroint
[2022-01-13 15:31] VITALS: BP 116/50; PULSE 103; RESP 15; TEMP 36.8; O2SAT 95; BMI 27.1
[2022-01-13 15:49] VITALS: BP 116/50; PULSE 87; RESP 15; TEMP 36.8
[2022-01-15 10:10] LABS: HIV Screen 4th Generation wRfx Non Reactive (Non Reactive)
[2022-01-28 17:56] LABS: Hep A Ab, IgM Negative; Hepatitis B Core Antibody IgM Negative; Hepatitis B Surface Antigen Negative; Hepatitis C Antibody <0.1
== END 2022-01-13 15:55 | disposition home or self-care (01) ==
PROVIDERS: Emergency Provider Nurse Practitioner Family; PCP Internal Medicine Adolescent Medicine
DX: S61.239A Puncture wound without foreign body of unspecified finger without damage to nail, initial encounter (principal); D64.9 Anemia, unspecified; I73.00 Raynaud's syndrome without gangrene; G43.909 Migraine, unspecified, not intractable, without status migrainosus; Z88.6 Allergy status to analgesic agent; Z82.49 Family history of ischemic heart disease and other diseases of the circulatory system; Z84.1 Family history of disorders of kidney and ureter; Z80.9 Family history of malignant neoplasm, unspecified; Z83.3 Family history of diabetes mellitus; Z83.49 Family history of other endocrine, nutritional and metabolic diseases; Z82.5 Family history of asthma and other chronic lower respiratory diseases; Z83.438 Family history of other disorder of lipoprotein metabolism and other lipidemia; Z81.3 Family history of other psychoactive substance abuse and dependence; Z81.1 Family history of alcohol abuse and dependence; W46.1XXA Contact with contaminated hypodermic needle, initial encounter
CPT/HCPCS: 80074; 86703; 99213; G0432; G0463

== ENCOUNTER 2022-01-20 08:59 | Outpatient (CLI) | payer BC, OTHER, SELFPAY ==
[2022-01-20 09:56] VITALS: BMI 28.9
[2022-01-20 10:02] LABS: Microscopic, Urine URINE MICROSCOPIC (MICROSCOPIC)
[2022-01-20 10:04] LABS: Appearance,Urine CLOUDY (Clear); Bilirubin,Urine Negative (Negative); Blood, Urine Negative (Negative); Color,Urine YELLOW (Yellow); Glucose,Urine (UA) Negative (Negative); Ketones,Urine Negative (Negative); Leukocyte Esterase,Urine 1+ (Negative); Nitrate,Urine Negative (Negative); PH,Urine 7.5 (5.0-8.5); Protein,Urine TRACE (Negative); Urobilinogen,Urine 0.2 EU/dl (0.2)
[2022-01-20 10:14] LABS: Bacteria,Urine 2+ /lpf; Mucus,Urine 1+ /lpf
[2022-01-20 10:15] LABS: Amorphous Sediment,Urine Trace /lpf; RBC,Urine Occasional #/hpf (0-3)
[2022-01-20 10:17] LABS: Benzodiazepines Screen,Urine Negative ng/ml (<200)
[2022-01-20 10:18] LABS: Amphetamine/Metha Screen,Urine Negative ng/ml (<1000)
[2022-01-20 10:19] LABS: Barbiturates Screen,Urine Negative ng/ml (<200); Cannabinoid Screen,Urine Negative ng/ml (<50)
[2022-01-20 10:20] VITALS: BP 109/70; PULSE 89; RESP 18; TEMP 36.7; O2SAT 97; BMI 28.9
[2022-01-20 10:20] LABS: Cocaine Screen,Urine Negative ng/ml (<300)
[2022-01-20 10:21] LABS: Methadone Screen,Urine Negative ng/ml (<300); Opiate Screen,Urine Negative ng/ml (<300)
[2022-01-20 10:22] LABS: Phencyclidine Screen,Urine Negative ng/ml (<25)
== END 2022-01-20 11:20 | disposition home or self-care (01) ==
LOC: OBOUT 09:01 → OB 09:02
PROVIDERS: PCP Internal Medicine Adolescent Medicine; Visit Provider Obstetrics & Gynecology
DX: O21.8 Other vomiting complicating pregnancy (principal); Z3A.12 12 weeks gestation of pregnancy
CPT/HCPCS: 80305; 81001; 87086; 96365; G0463; J2405

== ENCOUNTER 2022-03-13 08:04 | Emergency (ER) | payer BC, OTHER, SELFPAY ==
[2022-03-13 08:25] VITALS: BP 126/79; PULSE 87; RESP 18; TEMP 36.7; O2SAT 98; BMI 30.9
[2022-03-13 08:26] LABS: UTC Strep Screen (Rapid) Negative (Negative)
--- NOTE | 2022-03-13 08:37 | EXP.UTC ---
Discharge Plan Disposition Patient Disposition: Home, Self-Care Condition: Good Prescriptions Prescriptions: New amoxicillin 500 mg capsule 500 mg PO Q8H Qty: 30 0RF No Action Gummies 400 mcg-35 mg- 25 mg-5 mg tablet,chewable 1 tab PO DAILY ondansetron 4 mg tablet,disintegrating 4 mg PO Q8H PRN (Reason: nausea and vomiting) Qty: 20 2RF pyridoxine (vitamin B6) 25 mg tablet 25 mg PO TID PRN (Reason: Nausea) Unisom (doxylamine) 25 mg tablet 12.5 mg PO HS PRN (Reason: Sleep) magnesium oxide 400 mg magnesium tablet 800 mg PO BID PRN (Reason: diet) Referrals Follow up/Referrals: Francois Thomas MD [Primary Care Provider] - See instructions Activity Restrictions/Add. Instructions Additional Instructions/Restrictions: *Monitor Temp, Over the counter Motrin or Tylenol as directed/as needed Tylenol every 4 hours and Motrin every 6 hours (as long as your family doctor has told you that you can take it) for fever or pain. and straight to ER if unable to lower temp less than 101.0 after medication given *Warm salt water gargles may help to soothe the throat *Throat Lozenges? *Warm fluids like tea with honey may help to soothe the throat? *Sleep elevated *Humidifier/Vaporizer *Flonase 2 sprays in each nostril daily but be aware that it may take 2-3 days before you notice improvement Your throat swab was sent for culture. Those results are typically sent to your primary care. Be sure to follow up in 2-3 days with your family doctor/primary care physician if no improvement so they can review those result and treat if necessary. If you don?t have a primary care doctor, I recommend you get one but in the mean time, you will have to return to a walk in clinic Follow up IMMEDIATELY for new or worsening symptoms or no Noticeable improvement over the next 48-72 hours. 911 for difficulty breathing or swallowing Clinical Impressions Clinical Impression: Otitis media Qualifiers: Otitis media type: unspecified Laterality: bilateral Qualified Code(s): H66.93 - Otitis media, unspecified, bilateral Instructions Patient Instructions: Sore Throat, Middle Ear Infection Discharge ED Provider: Marci March [facility] HPI General Stated complaint: Ear pain, sore throat, dry cough Mode of Arrival: Ambulatory Source of Information: Patient Limitations: No Limitations Time Seen by Provider: 03/13/22 08:37 Description of Symptoms (Recalled from Triage Doc. by RN): pt comes in with c/o sore throat, non productive cough, ear pain for two days. [facility] of hospital. HEENT Symptoms (Recalled from RN notes): Yes Resp Symptoms (Recalled from RN notes): Yes Skin Symptoms (Recalled from RN notes): No MS Symptoms (Recalled from RN notes): No Functional Status (Recalled from RN notes): n/a History of Present Illness Provider Complaint: patient states that she has been having pain and pressure in both ears, sore throat non productive cough and sinus congestion that has continued to get worse over the last week State that she took COVID test on and it was negative but still having pain in her ears and throat today so she came in patient is 20wks OB Related Data Home Medications Medication Instructions Recorded Confirmed PNV 153-FA 400 mcg-om3 35 mg-dha 1 tab PO DAILY Supplement 12/08/21 03/13/22 25 mg-epa 5 mg-fish oil chew tablet ( Gummies) doxylamine succinate 25 mg tablet 12.5 mg PO HS PRN Sleep 03/13/22 03/13/22 (Unisom (doxylamine)) magnesium oxide 800 mg PO BID PRN diet 03/13/22 03/13/22 pyridoxine (vitamin B6) 25 mg 25 mg PO TID PRN Nausea 03/13/22 03/13/22 tablet Previous Rx's Medication Instructions Recorded ondansetron 4 mg disintegrating 4 mg PO Q8H PRN nausea and 02/17/22 tablet vomiting #20 tabs amoxicillin 500 mg capsule 500 mg PO Q8H #30 caps 03/13/22 Allergies Allergy/AdvReac Type Severity Reaction Status Date / Time julio Beckman
[2022-03-13 08:51] VITALS: BP 126/78; PULSE 87; RESP 18; TEMP 36.7
== END 2022-03-13 08:51 | disposition home or self-care (01) ==
PROVIDERS: Emergency Provider Nurse Practitioner; PCP Internal Medicine Adolescent Medicine
DX: J02.9 Acute pharyngitis, unspecified (principal); H66.93 Otitis media, unspecified, bilateral; R09.81 Nasal congestion; R11.2 Nausea with vomiting, unspecified; R05.9 Cough, unspecified; Z88.6 Allergy status to analgesic agent
CPT/HCPCS: 87880; 99213; G0463

== ENCOUNTER → 2022-03-14 10:11 | Outpatient (CLI) | payer OTHER, SELFPAY ==
--- NOTE | 2022-03-14 10:11 | US_ITS ---
FINAL REPORT CLINICAL HISTORY: 20 week anatomy scan FINDINGS: There is a single live intrauterine gestation. Presentation is breech. The cervix is closed and measures 5.5 cm. Placenta is anterior grade 1. movement is noted. Heart rate is detected at 156 beats per minute. Three-vessel cord with satisfactory umbilical cord insertion. Four-chamber heart is noted. ABDOMEN: Both kidneys are unremarkable. Stomach is unremarkable. SPINE: No anomalies identified. AMNIOTIC FLUID: Appropriate amount. MEASUREMENTS: ULTRASOUND AGE: 20 weeks 0 days. GESTATION AGE: 20 weeks 3 days. ESTIMATED WEIGHT: 319 g GROWTH PERCENTILE: 19 % BPD: 4.73 cm corresponding to 20 weeks 3 days. OFD: 5.65 cm corresponding to 19 weeks 5 days. HC: 16.37 cm corresponding to 19 weeks 1 day. AC: 14.49 cm corresponding to 19 weeks 6 days. FL: 3.25 cm corresponding to 20 weeks 1 day. CEREBELLUM: 2.02 cm corresponding to 20 weeks 4 days. HUMERUS: 3.14 cm corresponding to 20 weeks 4 days. HC/AC: 1.13 CI: 84% FL/BPD: 69% FL/AC: 22% IMPRESSION: Single living IUP with an ultrasound age of 22 weeks 0 days. Reviewed, Interpreted and Dictated by Jair Ferguson III, MD Transcribed by Ninfa John Authenticated and [facility]
== END ==
PROVIDERS: PCP Internal Medicine Adolescent Medicine; Visit Provider Obstetrics & Gynecology
DX: Z34.90 Encounter for supervision of normal pregnancy, unspecified, unspecified trimester (principal); Z3A.20 20 weeks gestation of pregnancy
CPT/HCPCS: 76811

== ENCOUNTER → 2022-04-20 07:50 | Outpatient (CLI) | payer OTHER, SELFPAY ==
[2022-04-20 08:09] LABS: Basophils # 0.1 K/mm3 (0-0.2); Basophils % 0.6 % (0.1-2.0); Eosinophils # 0.3 K/mm3 (0.0-0.4); Eosinophils % 2.7 % (0.1-12.0); Hematocrit 35.5 % (37.0-47.0); Hemoglobin 11.7 g/dL (12.2-16.2); Lymphocytes # 2.4 K/mm3 (0.7-4.5); Lymphocytes % 24.6 % (10-50); Mean Corpuscular HGB Conc 33.1 g/dL (31.8-35.4); Mean Corpuscular Volume 96.8 fl (81-99); Mean Platelet Volume 7.9 fl (7.4-10.4); Monocytes # 0.4 K/mm3 (0.1-1.0); Monocytes % 4.5 % (1.7-9.3); Neutrophils # 6.7 K/mm3 (1.8-7.8); Neutrophils % 67.6 % (37.0-80.0); Platelet Count 330 K/mm3 (142-424); Red Blood Count 3.67 M/mm3 (4.20-5.40); Red Cell Distribution Width 14.5 % (11.5-17.5); White Blood Count 9.9 K/mm3 (4.8-10.8)
[2022-04-20 08:16] LABS: Glucose,Fasting 82 mg/dl (74-100)
[2022-04-20 09:53] LABS: Glucose 1 Hour 159 mg/dL (74-100)
== END ==
PROVIDERS: PCP Internal Medicine Adolescent Medicine; Visit Provider Obstetrics & Gynecology
DX: Z34.90 Encounter for supervision of normal pregnancy, unspecified, unspecified trimester (principal)
CPT/HCPCS: 36415; 82951; 85025

== ENCOUNTER → 2022-04-21 07:37 | Outpatient (CLI) | payer OTHER, SELFPAY ==
[2022-04-21 09:35] LABS: Glucose 1 Hour 137 mg/dL (74-100); Glucose,Fasting 83 mg/dl (74-100)
[2022-04-21 11:34] LABS: Glucose 2 Hour 114 mg/dL (74-100)
[2022-04-21 11:52] LABS: Glucose 3 Hour 102 mg/dL (74-100)
== END ==
PROVIDERS: PCP Internal Medicine Adolescent Medicine; Visit Provider Obstetrics & Gynecology
DX: Z34.90 Encounter for supervision of normal pregnancy, unspecified, unspecified trimester (principal); Z3A.24 24 weeks gestation of pregnancy
CPT/HCPCS: 36415; 82951

== ENCOUNTER 2022-05-30 08:17 | Emergency (ER) | payer OTHER, SELFPAY ==
[2022-05-30 08:32] VITALS: BP 122/75; PULSE 120; RESP 16; TEMP 36.8; O2SAT 98; BMI 31.1
[2022-05-30 08:35] LABS: Adenovirus,PCR Not Detected (NotDetected); Bordetella Pertussis Not Detected (NotDetected); Chlamydophila Pneumoniae, PCR Not Detected (NotDetected); Coronavirus 229E Not Detected (NotDetected); Coronavirus NL63 Not Detected (NotDetected); Coronavirus OC43 Not Detected (NotDetected); Coronovirus HKU1,PCR Not Detected (NotDetected); Human Metapneumovirus Not Detected (NotDetected); Influenza A, PCR Not Detected (NotDetected); Influenza AH1, 2009 Not Detected (NotDetected); Influenza AH1, PCR Not Detected (NotDetected); Influenza AH3,PCR Not Detected (NotDetected); Influenza B, PCR Not Detected (NotDetected); Mycoplasma Pneumoniae, PCR Not Detected (NotDetected); Parainfluenza 1, PCR Not Detected (NotDetected); Parainfluenza 2, PCR Not Detected (NotDetected); Parainfluenza 3, PCR Not Detected (NotDetected); Parainfluenza 4, PCR Not Detected (NotDetected); Respiratory Syncytial Virus Not Detected (NotDetected); Rhinovirus/Enterovirus Not Detected (NotDetected)
--- NOTE | 2022-05-30 08:38 | EXP.UTC ---
Discharge Plan Disposition Patient Disposition: Home, Self-Care Condition: Good Prescriptions Prescriptions: No Action hydrocortisone 2.5 % cream 1 applic topical BID PRN (Reason: rash) Qty: 30 0RF hydroxyzine pamoate [Vistaril] 25 mg capsule 25 mg PO Q8H PRN (Reason: itching) Qty: 20 0RF ondansetron 4 mg tablet,disintegrating 4 mg PO Q8H PRN (Reason: nausea and vomiting) Qty: 20 2RF vit no.[id number] 28 mg iron- 800 mcg tablet 1 tab PO DAILY 90 Days Qty: 90 1RF pyridoxine (vitamin B6) 25 mg tablet 25 mg PO TID PRN (Reason: Nausea) Referrals Follow up/Referrals: Francois Thomas MD [Primary Care Provider] - See instructions Activity Restrictions/Add. Instructions Additional Instructions/Restrictions: Drink plenty of fluids. Take tylenol or ibuprofen for pain or fever. Take the medications as directed. Follow up with your regular doctor. GO TO THE ER FOR ANY WORSENING SYMPTOMS Clinical Impressions Clinical Impression: Acute viral syndrome Stand Alone Forms Stand Alone Forms: Work/School Release Instructions Patient Instructions: DI for Viral Syndrome Discharge ED Provider: David Marei [facility] General Stated complaint: Congestion, sore throat, cough, ear pain Mode of Arrival: Ambulatory Source of Information: Patient Limitations: No Limitations Time Seen by Provider: 05/30/22 08:37 Description of Symptoms (Recalled from Triage Doc. by RN): pt had covid exposure. symptoms include nasal congestion, bilateral ear pain, sore throat, nonproductive cough. pt is 31 weeks HEENT Symptoms (Recalled from RN notes): Yes Resp Symptoms (Recalled from RN notes): Yes Skin Symptoms (Recalled from RN notes): No MS Symptoms (Recalled from RN notes): No Functional Status (Recalled from RN notes): n/a History of Present Illness Provider Complaint: She states that for the past 2 days she has had nasal congestion, bilateral ear pain, sore throat, nonproductive cough. She is 31 weeks . Related Data Home Medications Medication Instructions Recorded Confirmed pyridoxine (vitamin B6) 25 mg 25 mg PO TID PRN Nausea 03/13/22 05/24/22 tablet Previous Rx's Medication Instructions Recorded ondansetron 4 mg disintegrating 4 mg PO Q8H PRN nausea and 02/17/22 tablet vomiting #20 tabs hydrocortisone 2.5 % topical cream 1 applic topical BID PRN rash #30 04/12/22 grams hydroxyzine pamoate 25 mg capsule 25 mg PO Q8H PRN itching #20 caps 04/12/22 (Vistaril) vits no.179-ferrous 1 tab PO DAILY 90 days #90 tabs 05/18/22 fumarate 28 mg-folic acid 800 mcg tablet Allergies Allergy/AdvReac Type Severity Reaction Status Date / Time naproxen Allergy Severe Heart Verified 05/30/22 08:36 Palpitations Worker's Comp Is this a Worker's Comp case?: No [facility] Disclaimer: The information contained in this section may have been updated after the patient was seen, as this information can be updated by other users. Medical History Atopic dermatitis Nausea and vomiting Surgical History History of removal of skin mole Hx of colonoscopy Hx of cosmetic plastic surgery Hx of nasal septoplasty Hx of wisdom tooth extraction Social History Smoking Status: Never smoker second hand exposure: No alcohol intake: current substance use type: denies use current occupational status: employed Travel in the last 8 weeks: None household members: significant other housing: house current occupation: [employer] current occupational exposures/hazards: No caffeine: Yes ROS Obtained: Yes All systems reviewed & no additional complaints except as documented Constitutional Constitutional: Reports chills and Denies fever(s) Eyes Eyes: Denies eye discharge ENT Ears, Nose, Mouth, and
[2022-05-30 09:26] VITALS: BP 122/75; PULSE 120; RESP 16; TEMP 36.8
[2022-05-30 13:35] LABS: Coronavirus 19, PCR Detected (NotDetected)
== END 2022-05-30 09:31 | disposition home or self-care (01) ==
PROVIDERS: Emergency Provider Nurse Practitioner Family; PCP Internal Medicine Adolescent Medicine
DX: U07.1 COVID-19 (principal)
CPT/HCPCS: 87581; 87632; 87798; 99212; C9803; G0463; U0003; U0005

== ENCOUNTER → 2022-06-09 12:29 | Outpatient (CLI) | payer OTHER, SELFPAY ==
--- NOTE | 2022-06-09 12:29 | US_ITS ---
FINAL REPORT CLINICAL HISTORY: lga FINDINGS: There is a single live intrauterine gestation. Presentation is cephalic. The cervix is closed and measures 3.93. Placenta is anterior, grade 2. movement is noted. RITCHIE is 13.42. Heart rate detected at 127 beats per minute. The visualized anatomy is unremarkable. MEASUREMENTS: ULTRASOUND AGE: 32 weeks 4 days. GESTATION AGE: 32 weeks 6 days. ESTIMATED WEIGHT: 1976 g GROWTH PERCENTILE: 28 % BPD: 8.01 cm corresponding to 32 weeks 2 days. OFD: 10.51 cm corresponding to 33 weeks 1 day. HC: 29.36 cm corresponding to 32 weeks 3 days. AC: 28.47 cm corresponding to 32 weeks 4 days. FL: 6.27 cm corresponding to 32 weeks 4 days. HC/AC: 1.03 CI: 76% FL/BPD: 78% FL/AC: 22% BIOPHYSICAL PROFILE SCORE BREATHIN MOVEMENT: 2 TONE: 2 FLUID VOLUME: 2 IMPRESSION: Single living IUP with an ultrasound age of 32 weeks 4 days. Biophysical profile score 8 of 8. Reviewed, Interpreted and Dictated by Jose Sky MD Transcribed by Ninfa John Authenticated and . [facility]
== END ==
PROVIDERS: PCP Internal Medicine Adolescent Medicine; Visit Provider Obstetrics & Gynecology
DX: O36.60X0 Maternal care for excessive fetal growth, unspecified trimester, not applicable or unspecified (principal)
CPT/HCPCS: 76816; 76819

== ENCOUNTER → 2022-07-03 11:20 | Outpatient (CLI) | payer OTHER, SELFPAY | PROVIDERS: Visit Provider Obstetrics & Gynecology | DX: Z34.90 Encounter for supervision of normal pregnancy, unspecified, unspecified trimester (principal); Z3A.35 35 weeks gestation of pregnancy | CPT/HCPCS: 86403; 87086 ==

== ENCOUNTER 2022-07-05 16:43 | Outpatient (CLI) | payer BC, OTHER, SELFPAY ==
[2022-07-05 16:54] VITALS: BMI 31.6
[2022-07-05 17:20] VITALS: BP 127/84; PULSE 91; RESP 18; TEMP 36.7; O2SAT 97; BMI 31.6
[2022-07-05 17:25] LABS: Microscopic, Urine URINE MICROSCOPIC (MICROSCOPIC)
[2022-07-05 17:29] LABS: Appearance,Urine CLEAR (Clear); Bilirubin,Urine Negative (Negative); Blood, Urine 1+ (Negative); Color,Urine YELLOW (Yellow); Glucose,Urine (UA) Negative (Negative); Ketones,Urine Negative (Negative); Leukocyte Esterase,Urine 1+ (Negative); Nitrate,Urine Negative (Negative); Protein,Urine Negative (Negative); Specific Gravity, Urine 1.015 (1.005-1.030); Urobilinogen,Urine 0.2 EU/dl (0.2)
[2022-07-05 17:35] LABS: Bacteria,Urine Trace /lpf; RBC,Urine Occasional #/hpf (0-3)
[2022-07-05 17:36] LABS: Fetal Membrane Rupture (Rapid) Negative (Negative)
--- NOTE | 2022-07-05 19:56 | US_ITS ---
PROCEDURE INFORMATION: Exam: US Biophysical Profile Without Non-Stress Test Exam date and time: 07/05/2022 7:57 PM Age: 26 years old Clinical indication: status abnormalities: ; movements, decreased; Single gestation; Third trimester (=28 weeks 0 days); ; Patient HX: Bpp only--; Additional info: Marked variability TECHNIQUE: Imaging protocol: US biophysical profile without non-stress testing. COMPARISON: US OB /MATERNAL DETAIL 03/14/2022 10:30 AM FINDINGS: There is a single viable intrauterine gestation in cephalic presentation with heart rate 136 bpm. Placenta is anterior and grade 2. Amniotic fluid index measures 14.8 cm. Cervical length measures 3.2 cm. BIOPHYSICAL PROFILE: breathing movement (BPP): 2 out of 2. body movement (BPP): 2 out of 2. tone (BPP): 2 out of 2. Amniotic fluid (BPP): 2 out of 2. IMPRESSION: Biophysical profile score is 8 out of 8.
[2022-07-05 20:59] LABS: Barbiturates Screen,Urine Negative ng/ml (<200)
[2022-07-05 21:00] LABS: Amphetamine/Metha Screen,Urine Negative ng/ml (<1000); Benzodiazepines Screen,Urine Negative ng/ml (<200)
[2022-07-05 21:01] LABS: Cannabinoid Screen,Urine Negative ng/ml (<50); Cocaine Screen,Urine Negative ng/ml (<300)
[2022-07-05 21:02] LABS: Methadone Screen,Urine Negative ng/ml (<300)
[2022-07-05 21:03] LABS: Opiate Screen,Urine Negative ng/ml (<300); Phencyclidine Screen,Urine Negative ng/ml (<25)
== END 2022-07-05 20:52 | disposition home or self-care (01) ==
LOC: OBOUT 16:45 → OB 16:46
PROVIDERS: PCP Internal Medicine Adolescent Medicine; Visit Provider Obstetrics & Gynecology
DX: O26.892 Other specified pregnancy related conditions, second trimester (principal); Z3A.25 25 weeks gestation of pregnancy
CPT/HCPCS: 59025; 76819; 80305; 81001; 84112; 87086; 96366; G0463

== ENCOUNTER 2022-07-24 04:59 | Inpatient (IN) | payer BC, OTHER, SELFPAY ==
[2022-07-24 05:08] VITALS: BMI 32.2
[2022-07-24 05:43] LABS: Coronavirus 19, PCR Not Detected (NotDetected); Influenza A, PCR Not Detected (NotDetected); Influenza B, PCR Not Detected (NotDetected); Microscopic, Urine URINE MICROSCOPIC (MICROSCOPIC)
[2022-07-24 05:55] LABS: Appearance,Urine CLEAR (Clear); Basophils # 0.1 K/mm3 (0-0.2); Basophils % 1.1 % (0.1-2.0); Bilirubin,Urine Negative (Negative); Blood, Urine TRACE-I (Negative); Color,Urine YELLOW (Yellow); Eosinophils # 0.2 K/mm3 (0.0-0.4); Eosinophils % 1.7 % (0.1-12.0); Glucose,Urine (UA) Negative (Negative); Hematocrit 35.7 % (37.0-47.0); Hemoglobin 12.1 g/dL (12.2-16.2); Ketones,Urine Negative (Negative); Leukocyte Esterase,Urine TRACE (Negative); Lymphocytes # 2.6 K/mm3 (0.7-4.5); Lymphocytes % 26.5 % (10-50); Mean Corpuscular Hemoglobin 31.1 pg (27.0-31.2); Mean Corpuscular Volume 91.4 fl (81-99); Mean Platelet Volume 7.4 fl (7.4-10.4); Monocytes # 0.5 K/mm3 (0.1-1.0); Monocytes % 5.3 % (1.7-9.3); Neutrophils # 6.3 K/mm3 (1.8-7.8); Neutrophils % 65.5 % (37.0-80.0); Nitrate,Urine Negative (Negative); Platelet Count 324 K/mm3 (142-424); Protein,Urine Negative (Negative); Red Cell Distribution Width 14.4 % (11.5-17.5); Specific Gravity, Urine 1.015 (1.005-1.030); Urobilinogen,Urine 0.2 EU/dl (0.2); White Blood Count 9.7 K/mm3 (4.8-10.8)
[2022-07-24 06:16] LABS: Bacteria,Urine Trace /lpf; WBC,Urine Occasional #/hpf (0-3)
[2022-07-24 06:17] LABS: Amphetamine/Metha Screen,Urine Negative ng/ml (<1000)
[2022-07-24 06:20] LABS: Barbiturates Screen,Urine Negative ng/ml (<200); Benzodiazepines Screen,Urine Negative ng/ml (<200)
[2022-07-24 06:21] LABS: Cannabinoid Screen,Urine Negative ng/ml (<50)
[2022-07-24 06:22] LABS: Cocaine Screen,Urine Negative ng/ml (<300); Methadone Screen,Urine Negative ng/ml (<300)
[2022-07-24 06:23] LABS: Opiate Screen,Urine Negative ng/ml (<300)
[2022-07-24 06:24] LABS: Phencyclidine Screen,Urine Negative ng/ml (<25)
[2022-07-24 06:54] VITALS: BP 128/78; PULSE 102; RESP 19; TEMP 36.8; O2SAT 98; BMI 32.2
--- NOTE | 2022-07-24 07:23 | P.CONPHA_ITS ---
Pharmacy Intervention Comments: MEDICATION RECONCILIATION COMPLETED ON PATIENT USING LIST FRO MOB/RUG TOUCH UP PAINTER OFFICE. -TAURUS KEENAN, MARISAD
--- NOTE | 2022-07-24 07:23 | HMH.PHAINT1 ---
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 -TAURUS KEENAN, MARISAD
--- NOTE | 2022-07-24 07:38 | EXP.OB.APHP ---
OB - H&P: HPI Antepartum History of Present Illness Chief complaint: Elective induction of labor History of present illness: Mrs Domitila Mendoza is a 26 yo at 39w2d who presents to [facility] for elective induction of labor. Admits to contractions and pelvic pressure. History of Present Criteria for establishing EDC:: LMP confirmed by 1st trimester US care: good care Ultrasounds: normal mid trimester US Obstetrical complications: none Medical complications: none Labs Blood type: A (+) positive Rubella: immune RPR/VDRL: nonreactive GBS status: negative HBsAG: negative [facility] Disclaimer: The information contained in this section may have been updated after the patient was seen, as this information can be updated by other users. Medical History (Updated 07/24/22 @ 07:46 by Farzaneh Taylor DO) Atopic dermatitis Nausea and vomiting with 39 completed weeks gestation Surgical History History of removal of skin mole Hx of colonoscopy Hx of cosmetic plastic surgery Hx of nasal septoplasty Hx of wisdom tooth extraction Family History Other No significant family history Social History Smoking Status: Never smoker second hand exposure: No alcohol intake: current substance use type: denies use current occupational status: employed Travel in the last 8 weeks: None household members: significant other housing: house current occupation: [employer] current occupational exposures/hazards: No caffeine: Yes do you feel safe at home: Yes victim of physical abuse: No victim of emotional abuse: No victim of sexual abuse: No Review of Systems Review of Systems Review of systems:: pertinent systems reviewed and negative unless documented below Meds Home Medications and Allergies Home Medications Medication Instructions Recorded Confirmed Type pyridoxine (vitamin B6) 25 mg 25 mg PO TIDP PRN Nausea 03/13/22 07/24/22 History tablet hydroxyzine pamoate 25 mg capsule 25 mg PO Q8HP PRN itching 07/24/22 07/24/22 History (Vistaril) magnesium oxide 800 mg PO BID Supplement 07/24/22 07/24/22 History ondansetron 4 mg disintegrating 4 mg PO Q8HP PRN nausea and 07/24/22 07/24/22 History tablet vomiting vits no.179-ferrous 1 tab PO DAILY Supplement 07/24/22 07/24/22 History fumarate 28 mg-folic acid 800 mcg tablet New Prescriptions to Start Prescriptions: Allergies Allergy/AdvReac Type Severity Reaction Status Date / Time naproxen Allergy Severe Heart Verified 07/18/22 09:29 Palpitations OB - H&P: Exam Physical Exam Vital signs: Temp Pulse Resp BP Pulse Ox 98.2 F 102 H 19 128/78 98 07/24/22 06:54 07/24/22 06:54 07/24/22 06:54 07/24/22 06:54 07/24/22 06:54 Constitutional no acute distress and cooperative Routine HEENT Exam Head: Present normocephalic and atraumatic Eye: Absent conjunctivae pink ENT: Present mucous membranes moist and dentition normal Routine Neck Exam Present full ROM Routine Respiratory Exam Present CTA bilaterally and normal respiratory effort Routine Cardiovascular Exam Present RRR Routine Abdominal Exam Present soft (Gravid); Absent tenderness Routine Rectal Exam Patient deferred: visual exam Routine Exam External: Present normal urethra appearance; Absent erythema, lesions or lacerations Routine Extremities Exam Present full ROM; Absent edema or calf tenderness Routine Neurological Exam Present alert, oriented X3 and moving all extremities Routine Psychiatric Exam Present normal affect and cooperative Detailed Labor and Delivery Exam Dilation (cm): 2 Effacement (%): 70 Cervix position: anterior station: -2 Consistency: soft Membranes: artificially ruptured (Amniotomy with [place] at 0716) Amniotic fl
--- NOTE | 2022-07-24 12:11 | P.PN_ITS ---
[facility] Disclaimer: The information contained in this section may have been updated after the patient was seen, as this information can be updated by other users. Medical History (Updated 07/24/22 @ 07:46 by Farzaneh Taylor DO) Atopic dermatitis Nausea and vomiting with 39 completed weeks gestation Surgical History History of removal of skin mole Hx of colonoscopy Hx of cosmetic plastic surgery Hx of nasal septoplasty Hx of wisdom tooth extraction Family History Other No significant family history Social History (Updated 07/24/22 @ 07:47 by Farzaneh Taylor DO) Smoking Status: Never smoker second hand exposure: No alcohol intake: current substance use type: denies use current occupational status: employed Travel in the last 8 weeks: None household members: significant other housing: house current occupation: [employer] current occupational exposures/hazards: No caffeine: Yes do you feel safe at home: Yes victim of physical abuse: No victim of emotional abuse: No victim of sexual abuse: No [employer] Anesthesia Checklist Patient Identification Patient Identification: Arm Band Structural Data Admitted From: Inpatient Planned Operative Procedure/s: Labor Epidural Consent for Planned Operative Procedure(s) Verified: Yes Verified Documents: Surgical Consent and History and Physical NPO Status Verified Time NPO: 00:00 Additional verifications Anesthesia Reactions: No Hx Blood Transfusions: No Blood Transfusion Reaction: No Airway Assessment C-Spine Mobility Assessed: Yes TMJ Mobility Assessed: Yes Dentition: Good Dentition Neurological Assessment Level of Consciousness: Awake and Alert Anesthesia Plan Anesthesia Risk discussed: Yes Anesthesia Plan: Verified ASA Class: II Anesthesia Type: Epidural
--- NOTE | 2022-07-24 16:51 | P.PN_ITS ---
Labor Note Subjective: Date: 07/24/22 Time: 16:51 Objective: NST:: Non-reactive Contractions:: every 4-5 minutes Cervical Dilation:: 6 Effacement:: 80% Station: 0 Membranes: artificially ruptured Fetus: Monitoring?: Yes monitoring type:: Internal Assessment: Labor progressing?: No All Active Problems (Updated 07/24/22 @ 07:46 by Farzaneh Taylor DO) with 39 completed weeks gestation (Acute) Tension headache (Chronic) Nausea and vomiting (Acute) Screening for genetic disease carrier status (Acute) Migraines (Chronic) (Chronic) Plan: Plan for ?: Yes Additional information:: Patient has been 6 cm for the past 2 hours. Baby is started having recurrent late decelerations. Pitociin was turned off and intrauterine resuscitation was performed. Recurrent late decelerations improved but did not resolve. Decision was made to proceed with primary for nonreassuring feta heart tones. Discussed risks, benefits, alternatives, expectations and possible complications of surgery. All questions addressed and answered. She voiced understanding of risks and possible complications. Consent form signed. Proceed with primary c- section.
[2022-07-24 18:20] VITALS: BP 111/93; PULSE 93; RESP 13; TEMP 36.7; O2SAT 93
[2022-07-24 18:30] VITALS: BP 121/71; PULSE 85; RESP 13; O2SAT 99
[2022-07-24 18:40] VITALS: BP 122/70; PULSE 80; RESP 15; O2SAT 99
--- NOTE | 2022-07-24 18:42 | EXP.OP.NOTE ---
Date of procedure: 07/24/22 Pre-op Diagnosis:: 1. IUP at 39w2d 2. Elective induction of labor 3. Nonreassuring heart tones Post-op Diagnosis:: 1. IUP at 39w2d 2. Elective induction of labor 3. Nonreassuring heart tones Procedure performed:: Primary Low Transverse section Surgeon:: Farzaneh Taylor DO Mother Baby Rn(s):: Jair Valdez MD OCCUPATIONAL HEALTH TECHNICIAN:: Loyda Lugo Anesthesia: epidural Estimated blood loss (mL): 600 Clinical Note:: Mrs Domitila Mendoza is a 26 yo at 39w2d who presented to [facility] Labor [facility] Delivery for elective induction of labor. She progressed to 6 cm and began having recurrent late decelerations. Pitocin was turned off and intrauterine resuscitation was performed. Late decelerations improved but did not resolve. Decision was made to proceed with primary for nonreassuring feta heart tones. Discussed risks, benefits, alternatives, expectations and possible complications of surgery. All questions addressed and answered. She voiced understanding of risks and possible complications. Consent form signed. Operative findings:: 1. Live female baby (baby's name is Noreen) weighing 5 lb 13 oz with APGARs 8, 9 2. Grossly normal appearing uterus, bilateral fallopian tubes and ovaries Operative note:: The risks, benefits and alternatives of the procedure were reviewed with the patient. Informed consent was obtained. Patient was taken to the operating room where epidural was bolused. The patient received 2 grams of Ancef preoperatively. Patient was placed in dorsal supine position with a leftward tilt. SCDs in place. Barrow catheter had been placed and was draining clear urine prior to the start of the procedure. heart tones were obtained. Patient was then prepped and draped in normal sterile fashion. (Vagina was prepped with Betadine swabs x 3.) Allis clamp test was performed to ensure adequate anesthesia. A Pfannenstiel skin incision was made 2 cm above pubic symphysis. This was carried through to underlying layer of fascia. Fascia was incised in midline, extended laterally with Hayes scissors. Superior aspect of fascial incision was grasped with two Hafsa clamps, elevated up, and rectus muscle dissected off bluntly and sharply with Hayes scissors. The retcus muscle was then in the midline and the peritoneum was entered bluntly with a digit. Peritoneal incision was then extended superiorly and inferiorly with good visualization of the bladder. Nathan retractor was inserted. The lower uterine segment was incised in a transverse fashion. Head was delivered without difficulty. Remainder of body was delivered without difficulty. Mouth and nares were bulb suctioned. Spontaneous cry was noted. Delayed cord clamping was performed for 60 seconds. The umbilical cord was clamped and cut. The infant was handed to awaiting pediatric staff in stable condition. Dr. Mccallum was present. Apgars were 8(1 min), 9(5 min). Cord blood was obtained. Gentle traction on the umbilical cord and uterine fundal massage delivered the placenta. Placenta was intact. Uterus was cleared of all clots and debris with a moist laparotomy sponge. Corners of the uterine incision were grasped with Allis clamps. The uterine incision was reapproximated with # 1 Vicryl suture in a running, locked stitch. Second layer of the same stitch was used to imbricate the incision. Excellent hemostasis was noted. Posterior cul-de-sac was cleaned with moist laparotomy sponge. (Uterus returned to the abdomen)Gutters cleared of all clots and debris with a moist laparotomy sponge. Hemostasis remained. At this point all instruments and sponges were removed from the pelvis.? The peritoneum was grasped with Monica clamps x 3. The peritoneum was reapproximated with 0 Vicryl suture in a running stitch. The corners of the fascia were grasped with Hafsa clamps, and the fascia was reapproximated with two # 1 Vicryl suture overlapped to the right of midline. The subcutaneous tissue
--- NOTE | 2022-07-24 18:45 | P.PNANES_ITS ---
[facility] Anesthesia Record Part I Anesthesia Record I Intake, IV Amount: 1,000 Estimated blood loss (mL): 700 Urine output (mL): 100 Blood Pressure: 111/93 SaO2: 96 Pulse Rate: 93 Respiratory Rate: 15 Temperature: 98 F Patient is:: Awake Stable to PACU at:: 18:20
[2022-07-24 18:49] VITALS: BP 111/93; PULSE 93; RESP 15; TEMP 36.6; O2SAT 96
[2022-07-24 18:50] VITALS: BP 116/68; PULSE 82; RESP 15; TEMP 36.7; O2SAT 99
--- NOTE | 2022-07-24 19:19 | SUR.OPER ---
1747- TOB of viable female . Apgars 8/9 unable to obtain a blood PH due to lack of blood in the syringe/unable to test. aware and ok with this.
--- NOTE | 2022-07-24 19:21 | SUR.PHASEI ---
184- detailed report called to dean hugo in ob 185- pt left in stable condition with dean hugo in pt room. All vss, dressings CDI, and fundus location confirmed.
[2022-07-25 07:33] LABS: Basophils # 0.1 K/mm3 (0-0.2); Basophils % 0.4 % (0.1-2.0); Eosinophils # 0.2 K/mm3 (0.0-0.4); Eosinophils % 1.2 % (0.1-12.0); Hematocrit 30.5 % (37.0-47.0); Hemoglobin 10.2 g/dL (12.2-16.2); Lymphocytes # 2.3 K/mm3 (0.7-4.5); Lymphocytes % 18.4 % (10-50); Mean Corpuscular HGB Conc 33.3 g/dL (31.8-35.4); Mean Corpuscular Hemoglobin 31.5 pg (27.0-31.2); Mean Corpuscular Volume 94.8 fl (81-99); Mean Platelet Volume 7.3 fl (7.4-10.4); Monocytes # 0.6 K/mm3 (0.1-1.0); Monocytes % 4.9 % (1.7-9.3); Neutrophils # 9.4 K/mm3 (1.8-7.8); Neutrophils % 75.1 % (37.0-80.0); Platelet Count 253 K/mm3 (142-424); Red Blood Count 3.22 M/mm3 (4.20-5.40); Red Cell Distribution Width 14.5 % (11.5-17.5); White Blood Count 12.5 K/mm3 (4.8-10.8)
[2022-07-25 08:06] VITALS: RESP 18
[2022-07-25 09:37] VITALS: BP 116/68; PULSE 82; TEMP 36.7
--- NOTE | 2022-07-25 09:37 | EXP.ANES.II ---
[facility] Anesthesia Record Part II Anesthesia Record Part II Discharge Time: 18:50 Destination: Obstetric PACU nurse assessment reviewed?: Yes Patient Condition:: Good Anesthesia Complications:: None Swallowing reflex intact?: Yes Cyanosis?: No Blood Pressure: 116/68 Pulse Rate: 82 Temperature: 98.1 F Mental Status: Alert & Oriented Pain level:: 0 Nausea and/or vomitting:: None Intake, IV Amount: 0
--- NOTE | 2022-07-25 13:05 | P.PN_ITS ---
Subjective *Date: 07/25/22 *Time: 13:05 Interval history: POD # 1 s/p PLTCS Resting in bed. Pain controlled with medication. She is breast feeding. Appropriate lochia. Voiding without difficulty and passing flatus. Tolerating regular diet. No fever/chills, chest pain or shortness of breath. Denies headaches and vision changes. Admits to lower extremity swelling. Medical Exam Vital signs and Labs for Last 24 Hours: Vital Signs Temp Pulse Pulse Resp BP BP Pulse Ox 07/25/22 08:06 18 07/24/22 18:50 98.1 F 82 15 116/68 99 07/24/22 18:40 80 15 122/70 99 07/24/22 18:30 85 13 121/71 99 07/24/22 18:20 98.0 F 93 H 13 111/93 H 93 L 07/24/22 18:49 98 F 93 H 15 111/93 H 07/25/22 09:37 98.1 F 82 116/68 Intake and Output 07/24/22 07/25/22 07/25/22 23:59 07:59 15:59 Intake Total 1000 / 1000 0 / 0 Output Total 1200 / 1200 Balance -200 / -200 0 / 0 Intake: Intake, Total IV Amount 1000 / 1000 0 / 0 Output: Output, Urine Amount (Catheter) 1200 / 1200 [place] 1200 / 1200 Laboratory Results - last 24 hr 07/25/22 07:05: WBC 12.5 H D, RBC 3.22 L, Hgb 10.2 L, Hct 30.5 L, MCV 94.8, MCH 31.5 H, MCHC 33.3, RDW 14.5, Plt Count 253, MPV 7.3 L, Neut % (Auto) 75.1, Lymph % (Auto) 18.4, [place] % (Auto) 4.9, Eos % (Auto) 1.2, Baso % (Auto) 0.4, Neut # (Auto) 9.4 H, Lymph # (Auto) 2.3, [place] # (Auto) 0.6, Eos # (Auto) 0.2, Baso # (Auto) 0.1 I & O for Labs for Last 24 Hours: Intake & Output 07/22/22 07/23/22 07/24/22 07/25/22 23:59 23:59 23:59 23:59 Intake Total 1000 / 1000 0 / 0 Output Total 1200 / 1200 Balance -200 / -200 0 / 0 Weight 182 lb Head: Present atraumatic and normocephalic ENT: Present normal exam Neck: Present full ROM Respiratory: Present CTA bilaterally and normal respiratory effort Cardiac: Present Reg Rate and Rhythm GI: Present soft and normal bowel sounds; Absent distention or tenderness Comments:: Uterine fundus firm and below umbilicus, incision clean/dry/intact with steri strips in place Rectal (female): Present deferred (female): Present deferred Extremities: Present full ROM and edema (+1 bilateral lower extremity edema); Absent calf tenderness Neuro: Present Grossly Intact and moves all extremities Assessment and Plan *Assessment and plan (1) with 39 completed weeks gestation: Status: Acute Category: Medical Code(s): Z3A.39 - 39 weeks gestation of (2) Elective induction of labor planned: Status: Acute Category: Medical (3) Non-reassuring heart tones complicating , antepartum: Status: Acute Category: Medical Code(s): O36.8390 - Maternal care for abnormalities of the heart rate or rhythm, unspecified trimester, not applicable or unspecified (4) Acute blood loss anemia: Status: Acute Category: Medical Code(s): D62 - Acute posthemorrhagic anemia Plan Continue routine care Encouraged increased ambulation Venofer 200 mg IV x 1 dose Plan d/c home tomorrow
[2022-07-25 16:16] VITALS: RESP 18
[2022-07-25 20:53] VITALS: BP 120/71; PULSE 91; RESP 17; TEMP 36.7; O2SAT 98
[2022-07-26 03:10] VITALS: BP 115/65; PULSE 90; RESP 19; TEMP 36.6; O2SAT 96
[2022-07-26 08:30] VITALS: BP 126/65; PULSE 105; RESP 18; TEMP 36.7; O2SAT 100
--- NOTE | 2022-07-26 12:15 | EXP.ACUTE.PN ---
Subjective *Date: 07/26/22 *Time: 12:15 Interval history: POD # 2 s/p PLTCS Resting in bed. Pain somewhat controlled. Breast feeding. Light lochia. Voiding without difficulty. Passing flatus. Tolerating regular diet. Denies fever/chills, chest pain and shortness of breath. No headaches, dizziness or lightheadedness. Denies swelling. Medical Exam Vital signs and Labs for Last 24 Hours: Vital Signs Temp Pulse Resp BP Pulse Ox 07/26/22 08:30 98.0 F 105 H 18 126/65 100 07/26/22 03:10 97.9 F 90 19 115/65 96 07/25/22 20:53 98.1 F 91 H 17 120/71 98 07/25/22 16:16 18 I & O for Labs for Last 24 Hours: Intake & Output 07/23/22 07/24/22 07/25/22 07/26/22 23:59 23:59 23:59 23:59 Intake Total 1000 / 1000 0 / 0 Output Total 1200 / 1200 Balance -200 / -200 0 / 0 Weight 182 lb Head: Present atraumatic and normocephalic ENT: Present normal exam and mucous membranes moist Neck: Present full ROM Respiratory: Present CTA bilaterally and normal respiratory effort Cardiac: Present Reg Rate and Rhythm GI: Present soft, tenderness (mild appropriate tenderness to palpation postoperatively), guarding and normal bowel sounds; Absent distention Comments:: Uterine fundus firm and below umbilicus, incision clean/dry/intact with steri strips in place Rectal (female): Present deferred (female): Present deferred Extremities: Present normal inspection and full ROM; Absent edema or calf tenderness Neuro: Present alert, awake, oriented x 3 and moves all extremities Assessment and Plan *Assessment and plan (1) with 39 completed weeks gestation: Status: Acute Category: Medical Code(s): Z3A.39 - 39 weeks gestation of (2) Elective induction of labor planned: Status: Acute Category: Medical (3) S/P : Status: Acute Category: Surgical Code(s): Z98.891 - History of uterine scar from previous surgery (4) Non-reassuring heart tones complicating , antepartum: Status: Acute Category: Medical Code(s): O36.8390 - Maternal care for abnormalities of the heart rate or rhythm, unspecified trimester, not applicable or unspecified (5) Acute blood loss anemia: Status: Acute Category: Medical Code(s): D62 - Acute posthemorrhagic anemia Plan Continue routine care Encouraged increased ambulation Will continue to work on pain control Plan d/c home tomorrow
[2022-07-27 09:04] VITALS: BP 126/64; PULSE 101; RESP 16; TEMP 36.7; O2SAT 97
--- NOTE | 2022-07-27 11:47 | EXP.DC.SUM ---
General Admission date:: 07/24/22 Discharge date: 07/27/22 HPI HPI HPI: POD # 3 s/p PLTCS Resting in bed. Pain controlled with medication. Breast feeding. Light lochia. Voiding without difficulty. Passing flatus. Tolerating regular diet. Denies fever/chills, chest pain and shortness of breath. No headaches, dizziness or lightheadedness. Denies swelling. Hospital Course Hospital Course Hospital Course: Mrs Domitila eMndoza is a 26 yo at 39w2d who presented to [facility] for elective induction of labor. She progressed to 6 cm and began having recurrent late decelerations. Pitocin was turned off and intrauterine resuscitation was performed. Late decelerations improved but did not resolve. Decision was made to proceed with primary for nonreassuring feta heart tones. She underwent primary on 07/24/22. She delivered a live female baby (baby's name is Noreen) weighing 5 lb 13 oz. APGARs 8, 9. EBL 600 mL. She did well postoperatively. She received Venofer 200 mg IV x 1 dose for acute blood loss anemia. Breast feeding. Light lochia. Voiding without difficulty and passing flatus. Tolerating regular diet. Vital signs stable afebrile. Denied fever/chills, chest pain and shortness of breath. No headaches or dizziness. +2 bilateral lower extremity swelling. No calf tenderness to palpation. She was doing well and discharged to home on POD # 3. Exam Data for Last 24 hours Vital signs and Labs for Last 24 Hours: Temp Pulse Resp BP Pulse Ox 98.1 F 101 H 16 126/64 97 07/27/22 09:04 07/27/22 09:04 07/27/22 09:04 07/27/22 09:04 07/27/22 09:04 I & O for Last 24 hours: Intake & Output 07/24/22 07/25/22 07/26/22 07/27/22 23:59 23:59 23:59 23:59 Intake Total 1000 / 1000 0 / 0 Output Total 1200 / 1200 Balance -200 / -200 0 / 0 Weight 182 lb Constitutional Constitutional: no acute distress *Routine HEENT Exam Head: Present normocephalic and atraumatic Eye: Absent conjunctivae pink ENT: Present mucous membranes moist and dentition normal *Routine Neck Exam Neck: Present full ROM *Routine Respiratory Exam Respiratory: Present CTA bilaterally and normal respiratory effort *Routine Cardiovascular Exam Cardiovascular: Present RRR *Routine Abdominal Exam Abdominal: Present soft and normoactive bowel sounds; Absent tenderness or distended Comments: Incision clean/dry/intact with steri strips present *Routine Rectal Exam Patient deferred: visual exam *Routine Exam Patient deferred: external exam *Routine Extremities Exam Extremities: Present edema (+2 bilateral lower extremity swelling) and full ROM; Absent calf tenderness *Routine Neurological Exam Neurological: Present alert, oriented X3, CN II-XII intact and moving all extremities Routine Psychiatric Exam Psychiatric: Present normal affect and cooperative DS: Diagnosis Discharge Diagnosis (1) with 39 completed weeks gestation: Status: Acute (2) Elective induction of labor planned: Status: Acute (3) S/P : Status: Acute (4) Non-reassuring heart tones complicating , antepartum: Status: Acute (5) Acute blood loss anemia: Status: Acute Meds Home Medications and Allergies Home Medications Medication Instructions Recorded Confirmed Type vits no.179-ferrous 1 tab PO DAILY Supplement 07/24/22 07/24/22 History fumarate 28 mg-folic acid 800 mcg tablet ibuprofen 400 mg tablet 800 mg PO Q8H PRN pain #40 tabs 07/27/22 Rx oxycodone 5 mg tablet 5 mg PO Q4HP PRN Moderate Pain #15 07/27/22 Rx tabs New Prescriptions to Start Prescriptions: ibuprofen Cannatalia,Farzaneh oxycodone CannataliaFarzaneh Allergies Allergy/AdvReac Type Severity Reaction Status Date / Time naproxen Allergy Severe Heart Verified 07/18/22 09:29 Palpitations Discharge Plan Disposition Patient Dis
== END 2022-07-27 12:47 | disposition home or self-care (01) | DRG 787 ==
PROVIDERS: Admitting Provider Obstetrics & Gynecology; PCP Internal Medicine Adolescent Medicine; Visit Provider Obstetrics & Gynecology
PROC: (CPT 59514; principal; 2022-07-24 17:00)
DX: O76 Abnormality in fetal heart rate and rhythm complicating labor and delivery (principal); D62 Acute posthemorrhagic anemia; Z3A.39 39 weeks gestation of pregnancy; Z37.0 Single live birth; O90.81 Anemia of the puerperium
CPT/HCPCS: 59514; 36415; 59025; 80305; 81001; 82800; 85025; 86850; 94761; C1758; C9290; C9803; G0283; J0131; J1756; U0003; U0005

== ENCOUNTER 2022-08-04 08:48 | Outpatient (CLI) | payer BC, OTHER, SELFPAY ==
[2022-08-04 09:16] VITALS: BMI 30.4
[2022-08-04 09:17] VITALS: BP 104/81; PULSE 144; RESP 18; TEMP 37.6; O2SAT 97; BMI 30.4
[2022-08-04 09:24] LABS: Microscopic, Urine URINE MICROSCOPIC (MICROSCOPIC)
--- NOTE | 2022-08-04 09:26 | ECG_ITS ---
APPROVED REPORT Exam: Resting ECG HR:133 bpm ECG Measurements Heart Rate 133 AXES AL 113 P 28 QRSd 78 QRS 3 QT 332 T 42 QTc 410 Conclusion SINUS TACHYCARDIA WITH SHORT AL INTERVAL INDETERMINATE AXIS PATTERN CONSISTENT WITH PULMONARY DISEASE MINIMAL ST DEPRESSION [0.025+ mV ST DEPRESSION] ABNORMAL ECG UNCONFIRMED REPORT Electronically signed by : Francois Thomas MD 08/04/2022 15:50:15
[2022-08-04 09:30] LABS: Appearance,Urine TURBID (Clear); Blood, Urine 3+ (Negative); Color,Urine ORANGE (Yellow); Glucose,Urine (UA) Negative (Negative); Ketones,Urine Negative (Negative); Leukocyte Esterase,Urine 3+ (Negative); Nitrate,Urine Negative (Negative); PH,Urine 5.5 (5.0-8.5); Protein,Urine 2+ (Negative); Specific Gravity, Urine 1.025 (1.005-1.030); Urobilinogen,Urine 0.2 EU/dl (0.2)
[2022-08-04 09:35] LABS: Bilirubin,Urine 1+ (Negative)
[2022-08-04 09:41] LABS: Amphetamine/Metha Screen,Urine Negative ng/ml (<1000); Cannabinoid Screen,Urine Negative ng/ml (<50)
[2022-08-04 09:42] LABS: Barbiturates Screen,Urine Negative ng/ml (<200)
[2022-08-04 09:43] LABS: Cocaine Screen,Urine Negative ng/ml (<300); Methadone Screen,Urine Negative ng/ml (<300)
[2022-08-04 09:44] LABS: Opiate Screen,Urine Negative ng/ml (<300)
[2022-08-04 09:45] LABS: Phencyclidine Screen,Urine Negative ng/ml (<25)
[2022-08-04 09:52] LABS: Bacteria,Urine 4+ /lpf; RBC,Urine 20-50 #/hpf (0-3); WBC,Urine 50-100 #/hpf (0-3)
[2022-08-04 10:04] LABS: Benzodiazepines Screen,Urine Negative ng/ml (<200)
[2022-08-04 10:08] LABS: Basophils # 0.1 K/mm3 (0-0.2); Basophils % 0.4 % (0.1-2.0); Eosinophils # 0.3 K/mm3 (0.0-0.4); Eosinophils % 1.3 % (0.1-12.0); Hemoglobin 12.7 g/dL (12.2-16.2); Lymphocytes # 1.9 K/mm3 (0.7-4.5); Lymphocytes % 9.4 % (10-50); Mean Corpuscular HGB Conc 33.4 g/dL (31.8-35.4); Mean Corpuscular Hemoglobin 31.8 pg (27.0-31.2); Mean Corpuscular Volume 95.2 fl (81-99); Monocytes # 0.7 K/mm3 (0.1-1.0); Monocytes % 3.2 % (1.7-9.3); Neutrophils # 17.8 K/mm3 (1.8-7.8); Neutrophils % 85.7 % (37.0-80.0); Platelet Count 501 K/mm3 (142-424); Red Blood Count 3.99 M/mm3 (4.20-5.40); Red Cell Distribution Width 14.4 % (11.5-17.5); White Blood Count 20.7 K/mm3 (4.8-10.8)
[2022-08-04 10:12] LABS: MANUAL DIFFERENTIAL MANUAL DIFFERENTIAL (MANUAL DIFF)
[2022-08-04 10:18] LABS: Alanine Aminotransferase 83 U/L (12-78); Albumin Level 4.2 g/dl (3.5-5.0); Albumin/Globulin Ratio 1.4 (1.1-1.8); Alkaline Phosphatase 92 U/L (38-126); Anion Gap 12.1 mEq/L (5-15); Aspartate Amino Transferase 67 U/L (14-36); Bilirubin,Total 0.9 mg/dl (0.2-1.3); Blood Urea Nitrogen 9 mg/dl (7-17); Calcium 9.1 mg/dl (8.4-10.2); Carbon Dioxide 22 mmol/L (22.0-30.0); Chloride 104 mmol/L (98-107); Creatinine Clearance Estimated 125 mL/min (50-200); Estimated Glomerular Filt Rate 85 ml/min (>60); GFR (African American) 103 ML/MIN (>60); Globulin 3.1 g/dL (1.3-3.2); Glucose 99 mg/dl (74-100); Potassium 4.1 mmoL/L (3.5-5.1); Sodium 134 mmol/L (136-145); Total Protein,Serum 7.3 g/dl (6.3-8.2)
--- NOTE | 2022-08-04 10:25 | PC.NURSE ---
902- Pt arrived from home with c/o sudden onset of fever, chills, and nausea at 0300am today. States she wasn't able to drink or eat much yesterday and has had some lower abdominal cramping. Temperature at home was 102.5 orally. U/A obtained upon arrival. Ekg also obtained r/t heart rate of 144. 09-requested call back from Dr Taylor [phone]- Dr Taylor returned call, report given. Labs reviewed. Orders for Rocephin 1gm Iv and NS bolus. If heart rate improves, pt may be discharged home. If pt continues to be tachycardic, pt is to be evaluated in ER. R/V.
[2022-08-04 10:44] LABS: Coronavirus 19, PCR Not Detected (NotDetected); Influenza A, PCR Not Detected (NotDetected); Influenza B, PCR Not Detected (NotDetected)
[2022-08-04 11:05] LABS: Lymphocytes % 16 % (10-50); Monocytes % 3 % (2-9); Neutrophils % 81 % (42-76); Platelet Estimate Normal; RBC Morphology Normal; Total Cells Counted 100
--- NOTE | 2022-08-04 11:28 | PC.NURSE ---
Addendum entered by Kalani Lambert RN 08/04/22 11:29: Addendum: infuse second bag of NS prior to discharge. R/V Original Note: Dr Taylor notified of pt status and labs. Orders to discharge pt to follow up as scheduled. She will follow up on urine culture.
[2022-08-04 13:15] VITALS: BP 108/78; PULSE 94; RESP 16; TEMP 37.2; O2SAT 98
--- NOTE | 2022-08-04 13:44 | PC.NURSE ---
1320- IV DC'D WITH CATHETER INTACT. NO S.SX OF INFECTION OR INFILTRATION NOTED. VSS. PT VOIDED 500ML AT 1300. PT STATES SHE IS FEELING MUCH BETTER. 1325- DISCHARGE INFORMATION GIVEN AND EXPLAINED. PT V/U. AMBULATED OFF UNIT AT THIS TIME WITH HER MOTHER. REFUSED WHEELCHAIR.
[2022-08-05 06:11] LABS: Hep A Ab, Total Negative (Negative)
== END 2022-08-04 13:25 | disposition home or self-care (01) ==
LOC: OBOUT 08:50 → OB 08:50
PROVIDERS: Obstetrics & Gynecology; PCP Internal Medicine Adolescent Medicine; Visit Provider Nurse Practitioner Obstetrics & Gynecology
DX: O90.89 Other complications of the puerperium, not elsewhere classified (principal); R50.82 Postprocedural fever; R51.9 Headache, unspecified
CPT/HCPCS: 36415; 80053; 80305; 81001; 85007; 85025; 86708; 87086; 87088; 87186; 93005; 96365; 96366; 96367; C9803; G0463; J0696; U0003; U0005

== ENCOUNTER 2022-08-04 20:53 | Observation (INO) | payer BC, OTHER, SELFPAY ==
--- NOTE | 2022-08-04 21:20 | PC.NURSE ---
Patient arrived to the unit at this time accompanied with and .
[2022-08-04 21:30] VITALS: BMI 30.3
[2022-08-04 21:40] VITALS: O2SAT 98
--- NOTE | 2022-08-04 21:40 | XR_ITS ---
PROCEDURE INFORMATION: Exam: XR Chest Exam date and time: 08/04/2022 9:47 PM Age: 26 years old Clinical indication: Other: R/O pulmonary disease TECHNIQUE: Imaging protocol: Radiologic exam of the chest. Views: 1 view. COMPARISON: CT ANGIO UE LT 11/08/2020 1:58 PM FINDINGS: Lungs: No focal consolidation. Pleural spaces: No pleural effusion. No pneumothorax. Heart/Mediastinum: Unremarkable cardiomediastinal silhouette. Bones/joints: No acute osseous findings. IMPRESSION: No focal consolidation.
[2022-08-04 21:50] VITALS: BP 123/76; PULSE 93; RESP 17; TEMP 36.8; O2SAT 98
[2022-08-04 22:29] LABS: Basophils # 0.1 K/mm3 (0-0.2); Basophils % 0.6 % (0.1-2.0); Eosinophils # 0.2 K/mm3 (0.0-0.4); Eosinophils % 1.8 % (0.1-12.0); Hematocrit 32.5 % (37.0-47.0); Lymphocytes # 2.9 K/mm3 (0.7-4.5); Lymphocytes % 21.9 % (10-50); Mean Corpuscular HGB Conc 34.3 g/dL (31.8-35.4); Mean Corpuscular Hemoglobin 31.8 pg (27.0-31.2); Mean Corpuscular Volume 92.6 fl (81-99); Mean Platelet Volume 7.3 fl (7.4-10.4); Monocytes # 0.7 K/mm3 (0.1-1.0); Monocytes % 5.1 % (1.7-9.3); Neutrophils # 9.3 K/mm3 (1.8-7.8); Neutrophils % 70.6 % (37.0-80.0); Platelet Count 456 K/mm3 (142-424); Red Blood Count 3.51 M/mm3 (4.20-5.40); Red Cell Distribution Width 14.5 % (11.5-17.5); White Blood Count 13.2 K/mm3 (4.8-10.8)
[2022-08-04 22:35] LABS: Chloride 109 mmol/L (98-107); Potassium 3.8 mmoL/L (3.5-5.1); Sodium 138 mmol/L (136-145)
[2022-08-04 22:38] LABS: Alanine Aminotransferase 70 U/L (12-78); Albumin Level 3.8 g/dl (3.5-5.0); Albumin/Globulin Ratio 1.2 (1.1-1.8); Alkaline Phosphatase 80 U/L (38-126); Anion Gap 11.8 mEq/L (5-15); Aspartate Amino Transferase 44 U/L (14-36); Bilirubin,Total 0.6 mg/dl (0.2-1.3); Blood Urea Nitrogen 15 mg/dl (7-17); Calcium 8.5 mg/dl (8.4-10.2); Carbon Dioxide 21 mmol/L (22.0-30.0); Creatinine Clearance Estimated 111 mL/min (50-200); Estimated Glomerular Filt Rate 75 ml/min (>60); GFR (African American) 90 ML/MIN (>60); Globulin 3.1 g/dL (1.3-3.2); Glucose 104 mg/dl (74-100); Total Protein,Serum 6.9 g/dl (6.3-8.2)
[2022-08-04 22:39] LABS: Lactic Acid 0.9 mmol/L (0.7-2.1)
--- NOTE | 2022-08-04 23:05 | PC.NURSE ---
Spoke with Jakub (pharmacy) to ensure breast feeding safety for gentamicin, ampicillin and clindamycin. Per Jakub watch infant for diarrhea from clindamycin.
--- NOTE | 2022-08-04 23:43 | PC.NURSE ---
Spoke with Olivia (pharmacy) to ensure Gentamicin dosing.
--- NOTE | 2022-08-05 03:45 | PC.NURSE ---
Patient has remained afebrile throughout this shift. Patient has been complaining of being cold. Patient denies any pain. Lungs remain CTA. No edema noted. Patient vitals have remained WNL.
[2022-08-05 03:47] VITALS: BP 106/76; PULSE 76; RESP 15; TEMP 36.6; O2SAT 98
[2022-08-05 07:49] LABS: Basophils # 0.1 K/mm3 (0-0.2); Basophils % 1.2 % (0.1-2.0); Eosinophils # 0.3 K/mm3 (0.0-0.4); Eosinophils % 3.4 % (0.1-12.0); Hematocrit 34.3 % (37.0-47.0); Hemoglobin 11.5 g/dL (12.2-16.2); Lymphocytes # 2.8 K/mm3 (0.7-4.5); Lymphocytes % 30.8 % (10-50); Mean Corpuscular HGB Conc 33.6 g/dL (31.8-35.4); Mean Corpuscular Volume 95.1 fl (81-99); Mean Platelet Volume 7.3 fl (7.4-10.4); Monocytes # 0.5 K/mm3 (0.1-1.0); Monocytes % 5.5 % (1.7-9.3); Neutrophils # 5.3 K/mm3 (1.8-7.8); Neutrophils % 59.1 % (37.0-80.0); Platelet Count 431 K/mm3 (142-424); Red Cell Distribution Width 14.5 % (11.5-17.5); White Blood Count 8.9 K/mm3 (4.8-10.8)
[2022-08-05 07:55] LABS: Alanine Aminotransferase 73 U/L (12-78); Albumin Level 3.7 g/dl (3.5-5.0); Albumin/Globulin Ratio 1.3 (1.1-1.8); Alkaline Phosphatase 76 U/L (38-126); Anion Gap 8.9 mEq/L (5-15); Aspartate Amino Transferase 60 U/L (14-36); Bilirubin,Total 0.8 mg/dl (0.2-1.3); Blood Urea Nitrogen 10 mg/dl (7-17); Calcium 8.6 mg/dl (8.4-10.2); Carbon Dioxide 22 mmol/L (22.0-30.0); Chloride 109 mmol/L (98-107); Creatinine Clearance Estimated 166 mL/min (50-200); Estimated Glomerular Filt Rate 119 ml/min (>60); GFR (African American) 144 ML/MIN (>60); Globulin 2.8 g/dL (1.3-3.2); Glucose 100 mg/dl (74-100); Potassium 3.9 mmoL/L (3.5-5.1); Sodium 136 mmol/L (136-145); Total Protein,Serum 6.5 g/dl (6.3-8.2)
--- NOTE | 2022-08-05 09:20 | EXP.PHA.CONS ---
Pharmacy Consult Date: 08/05/22 Time: 09:20 Referring provider: DR. HERNANDEZ Reason for Consult:: GENTAMICIN DOSING FOR PATIENT Allergies Allergy/AdvReac Type Severity Reaction Status Date / Time naproxen Allergy Severe Heart Verified 07/18/22 09:29 Palpitations Home Medications Medication Instructions Recorded Confirmed Type vits no.179-ferrous 1 tab PO DAILY Supplement 07/24/22 08/05/22 History fumarate 28 mg-folic acid 800 mcg tablet ibuprofen 400 mg tablet 800 mg PO Q8H PRN pain #40 tabs 07/27/22 08/05/22 Rx oxycodone 5 mg tablet 5 mg PO Q4HP PRN Moderate Pain #15 07/27/22 08/05/22 Rx tabs New Prescriptions to Start Prescriptions: Height: 1.57 m Weight: 75.296 kg Laboratory Results:: Laboratory Results - last 24 hr 08/04/22 22:04: WBC 13.2 H D, RBC 3.51 L, Hgb 11.0 L D, Hct 32.5 L, MCV 92.6, MCH 31.8 H, MCHC 34.3, RDW 14.5, Plt Count 456 H, MPV 7.3 L, Neut % (Auto) 70.6, Lymph % (Auto) 21.9, [place] % (Auto) 5.1, Eos % (Auto) 1.8, Baso % (Auto) 0.6, Neut # (Auto) 9.3 H, Lymph # (Auto) 2.9, [place] # (Auto) 0.7, Eos # (Auto) 0.2, Baso # (Auto) 0.1 08/04/22 22:04: Sodium 138, Potassium 3.8, Chloride 109 H, Carbon Dioxide 21 L, Anion Gap 11.8, BUN 15 D, Creatinine 0.90, Estimated Creat Clear 111, Estimated GFR 75, Est GFR ( Amer) 90, Glucose 104 H, Calcium 8.5, Total Bilirubin 0.6, AST 44 H D, ALT 70, Alkaline Phosphatase 80, Total Protein 6.9, Albumin 3.8, Globulin 3.1, Albumin/Globulin Ratio 1.2 08/04/22 22:04: Lactate 0.9 08/05/22 07:20: WBC 8.9 D, RBC 3.60 L, Hgb 11.5 L, Hct 34.3 L, MCV 95.1, MCH 32.0 H, MCHC 33.6, RDW 14.5, Plt Count 431 H, MPV 7.3 L, Neut % (Auto) 59.1, Lymph % (Auto) 30.8, [place] % (Auto) 5.5, Eos % (Auto) 3.4, Baso % (Auto) 1.2, Neut # (Auto) 5.3, Lymph # (Auto) 2.8, [place] # (Auto) 0.5, Eos # (Auto) 0.3, Baso # (Auto) 0.1 08/05/22 07:20: Sodium 136, Potassium 3.9, Chloride 109 H, Carbon Dioxide 22, Anion Gap 8.9, BUN 10 D, Creatinine 0.60 D, Estimated Creat Clear 166, Estimated GFR 119, Est GFR ( Amer) 144 D, Glucose 100, Calcium 8.6, Total Bilirubin 0.8, AST 60 H D, ALT 73, Alkaline Phosphatase 76, Total Protein 6.5, Albumin 3.7, Globulin 2.8, Albumin/Globulin Ratio 1.3 Medical History: Medical History (Updated 07/31/22 @ 00:00 by Background Damarleneon) Acute blood loss anemia Atopic dermatitis Elective induction of labor planned Nausea and vomiting Non-reassuring heart tones complicating , antepartum with 39 completed weeks gestation Screening for genetic disease carrier status Assessment and Plan Assessment and plan all Dx Assessment and Plan for all problems:: Pharmacokinetic dosing service Age: 26 yo Serum creatinine: 0.6 mg/dL Height: 62.0 Inches Weight (kg): 75.29 Assessment: IBW (kg): 50.10 Dosing wt(kg): 60.2 Estimated Creatinine clearance (ml/min): 110.4 CRCL method: Cockcroft and Gault using ibw(default). Drug selected: Gentamicin Loading dose (mg): 0 Vd (liters): 12.0 (factor used: 0.2 L/kg) Werner (hr-1): 0.552 Half life (hrs): 1.26 Recommended dose: 80 mg Interval: 8 hrs Infusion time (hrs): 1 Predicted peak (mcg/mL): 5.2 Predicted trough (mcg/mL): 0.11 Recommendations: PATIENT IS PATIENT WHO IS LIKELY TO CONTINUE WHILE ON ANTIBIOTICS. DOSING AT ~1.5 MG/KG DBW FOR THIS PATIENT EVERY 8 HOURS. Give Gentamicin 80 mg q 8 hrs with an expected Cpeak of 5.2 mcg/ml and an expected Ctrough of 0.11 mcg/ml.
--- NOTE | 2022-08-05 09:22 | EXP.HP ---
History of Present Illness *Admission Date: 08/04/22 *Reason for visit:: with fever, tachycardia and increased WBC *History of present illness: She is a 26-year-old 1 para 1 who is about 11 days from a . She had a temperature of 102 degrees at home and when she was seen here she was tachycardic and had a low-grade temperature. White blood cell count was 20. She initially received 1 dose of Rocephin IM but I elected to call her back and admit her for IV antibiotics. [facility] Disclaimer: The information contained in this section may have been updated after the patient was seen, as this information can be updated by other users. Medical History Acute blood loss anemia Atopic dermatitis Elective induction of labor planned Nausea and vomiting Non-reassuring heart tones complicating , antepartum with 39 completed weeks gestation Screening for genetic disease carrier status Surgical History History of removal of skin mole Hx of colonoscopy Hx of cosmetic plastic surgery Hx of nasal septoplasty Hx of wisdom tooth extraction S/P Family History Family history of kidney stone Grandmother Family/Other Family history of stroke Grandmother Family history of cancer Grandmother Family/Other Grandfather Grandfather Grandmother Family history of asthma Grandfather Family history of hypertension Grandfather Grandfather Grandmother Father Family history of COPD (chronic obstructive pulmonary disease) Grandfather Family history of hyperlipidemia Family/Other Grandfather Social History Smoking Status: Never smoker second hand exposure: No alcohol intake: current substance use type: denies use current occupational status: unemployed Travel in the last 8 weeks: None adopted: No household members: spouse and children housing: house marital status: number of children: 3 current occupation: [employer] current occupational exposures/hazards: No caffeine: Yes do you feel safe at home: Yes victim of physical abuse: No victim of emotional abuse: No victim of sexual abuse: No Review of Systems Review of Systems Review of systems:: pertinent systems reviewed and negative unless documented below Meds Home Medications and Allergies Home Medications Medication Instructions Recorded Confirmed Type vits no.179-ferrous 1 tab PO DAILY Supplement 07/24/22 08/05/22 History fumarate 28 mg-folic acid 800 mcg tablet ibuprofen 400 mg tablet 800 mg PO Q8H PRN pain #40 tabs 07/27/22 08/05/22 Rx oxycodone 5 mg tablet 5 mg PO Q4HP PRN Moderate Pain #15 07/27/22 08/05/22 Rx tabs New Prescriptions to Start Prescriptions: Allergies Allergy/AdvReac Type Severity Reaction Status Date / Time naproxen Allergy Severe Heart Verified 07/18/22 09:29 Palpitations Exam Data for Last 24 hours Vital signs and Labs for Last 24 Hours: Temp Pulse Resp BP Pulse Ox 97.8 F 76 15 106/76 L 98 08/05/22 03:47 08/05/22 03:47 08/05/22 03:47 08/05/22 03:47 08/05/22 03:47 Laboratory Results - last 24 hr 08/04/22 22:04: WBC 13.2 H D, RBC 3.51 L, Hgb 11.0 L D, Hct 32.5 L, MCV 92.6, MCH 31.8 H, MCHC 34.3, RDW 14.5, Plt Count 456 H, MPV 7.3 L, Neut % (Auto) 70.6, Lymph % (Auto) 21.9, [place] % (Auto) 5.1, Eos % (Auto) 1.8, Baso % (Auto) 0.6, Neut # (Auto) 9.3 H, Lymph # (Auto) 2.9, [place] # (Auto) 0.7, Eos # (Auto) 0.2, Baso # (Auto) 0.1 08/04/22 22:04: Sodium 138, Potassium 3.8, Chloride 109 H, Carbon Dioxide 21 L, Anion Gap 11.8, BUN 15 D, Creatinine 0.90, Estimated Creat Clear 111, Estimated GFR 75, Est GFR ( Amer) 90, Glucose 104 H, Calcium 8.5, Total Bilirubin 0.6, AST 44 H D, ALT 7
--- NOTE | 2022-08-05 09:27 | P.PN_ITS ---
Subjective *Date: 08/05/22 *Time: 09:27 Interval history: She is doing better this morning. She had no further episodes of fever or chills. She denies any breast engorgement. She denies any calf tenderness. She denies any shortness of breath. She has some mild lower abdominal pain. Medical Exam Vital signs and Labs for Last 24 Hours: Vital Signs Temp Pulse Resp BP Pulse Ox 08/04/22 21:50 98.3 F 93 H 17 123/76 98 08/05/22 03:47 97.8 F 76 15 106/76 L 98 08/04/22 21:40 98 Intake and Output 08/04/22 08/05/22 08/05/22 19:59 03:59 11:59 Other: Weight 166 lb 166 lb Patient Weight 08/05/22 11:59 Weight 166 lb Laboratory Results - last 24 hr 08/04/22 22:04: WBC 13.2 H D, RBC 3.51 L, Hgb 11.0 L D, Hct 32.5 L, MCV 92.6, MCH 31.8 H, MCHC 34.3, RDW 14.5, Plt Count 456 H, MPV 7.3 L, Neut % (Auto) 70.6, Lymph % (Auto) 21.9, [place] % (Auto) 5.1, Eos % (Auto) 1.8, Baso % (Auto) 0.6, Neut # (Auto) 9.3 H, Lymph # (Auto) 2.9, [place] # (Auto) 0.7, Eos # (Auto) 0.2, Baso # (Auto) 0.1 08/04/22 22:04: Sodium 138, Potassium 3.8, Chloride 109 H, Carbon Dioxide 21 L, Anion Gap 11.8, BUN 15 D, Creatinine 0.90, Estimated Creat Clear 111, Estimated GFR 75, Est GFR ( Amer) 90, Glucose 104 H, Calcium 8.5, Total Bilirubin 0.6, AST 44 H D, ALT 70, Alkaline Phosphatase 80, Total Protein 6.9, Albumin 3.8, Globulin 3.1, Albumin/Globulin Ratio 1.2 08/04/22 22:04: Lactate 0.9 08/05/22 07:20: WBC 8.9 D, RBC 3.60 L, Hgb 11.5 L, Hct 34.3 L, MCV 95.1, MCH 32.0 H, MCHC 33.6, RDW 14.5, Plt Count 431 H, MPV 7.3 L, Neut % (Auto) 59.1, Lymph % (Auto) 30.8, [place] % (Auto) 5.5, Eos % (Auto) 3.4, Baso % (Auto) 1.2, Neut # (Auto) 5.3, Lymph # (Auto) 2.8, [place] # (Auto) 0.5, Eos # (Auto) 0.3, Baso # (Auto) 0.1 08/05/22 07:20: Sodium 136, Potassium 3.9, Chloride 109 H, Carbon Dioxide 22, Anion Gap 8.9, BUN 10 D, Creatinine 0.60 D, Estimated Creat Clear 166, Estimated GFR 119, Est GFR ( Amer) 144 D, Glucose 100, Calcium 8.6, Total Bilirubin 0.8, AST 60 H D, ALT 73, Alkaline Phosphatase 76, Total Protein 6.5, Albumin 3.7, Globulin 2.8, Albumin/Globulin Ratio 1.3 I & O for Labs for Last 24 Hours: Intake & Output 08/02/22 08/03/22 08/04/22 08/05/22 11:59 11:59 11:59 11:59 Weight 166 lb Microbiology Reports for the Last 24 Hours: Microbiology 08/04/22 22:15 Vaginal Gram Stain - Final Head: Present atraumatic Eyes: Present as per HPI Neck: Present normal inspection Respiratory: Present normal respiratory effort; Absent accessory muscle use GI: Present tenderness (Her uterus was slightly tender to palpate.) Comments:: Her incision is clean and dry and there is no evidence of infection. Assessment and Plan *Assessment and plan (1) Endometritis following delivery: Status: Acute Category: Medical Code(s): O86.12 - Endometritis following delivery (2) fever: Status: Acute Category: Medical Code(s): O86.4 - Pyrexia of unknown origin following delivery Plan Her blood work has improved this morning. She now has a white blood cell count of 8.9. She has no evidence of fever. Her uterus is still slightly tender to palpate. We will plan to keep her for another 24 hours of IV antibiotics and then send her home tomorrow likely.
--- NOTE | 2022-08-05 09:49 | PC.NURSE ---
pt doing well, sitting up in bed. no pain, only tender to touch at lower abd. csection incision, no redness/drainage. lungs cta. no edema noted. no complaints at this time.
--- NOTE | 2022-08-05 11:05 | PC.NURSE ---
checked on pt around 1030, pt stated she was cold and shivering excessively. pts temp 98.6. pts temp now 100.3, tylenol 600mg, ibuprofen 800mg ordered.
[2022-08-05 20:00] VITALS: BP 119/70; PULSE 78; RESP 16; TEMP 36.8; O2SAT 97
[2022-08-06 05:00] VITALS: BP 105/71; PULSE 71; RESP 14; TEMP 36.8; O2SAT 98
--- NOTE | 2022-08-06 05:20 | PC.NURSE ---
Patient has rested well throughout the night. Patient has remained afebrile. Patient lungs CTA. Patient voices no concerns.
--- NOTE | 2022-08-06 07:15 | P.PN_ITS ---
Subjective *Date: 08/06/22 *Time: 07:15 Interval history: She is doing well this morning. She had a temperature of 100.3 at around noon yesterday. She had significant chills. She has not had any episodes of that since yesterday at noon. She otherwise feels well. She denies any chest pain, shortness of breath or calf tenderness. She says she still a little tender in the uterus but not along her incision. Medical Exam Vital signs and Labs for Last 24 Hours: Vital Signs Temp Pulse Resp BP Pulse Ox 08/06/22 05:00 98.2 F 71 14 105/71 L 98 08/05/22 20:00 98.2 F 78 16 119/70 97 Intake and Output 08/05/22 08/06/22 08/06/22 19:59 03:59 11:59 Output Total 0 / 0 Balance 0 / 0 Output: Output, Urine Amount 0 / 0 Other: Number of Unmeasured Voids 1 Laboratory Results - last 24 hr 08/05/22 07:20: WBC 8.9 D, RBC 3.60 L, Hgb 11.5 L, Hct 34.3 L, MCV 95.1, MCH 32.0 H, MCHC 33.6, RDW 14.5, Plt Count 431 H, MPV 7.3 L, Neut % (Auto) 59.1, Lymph % (Auto) 30.8, [place] % (Auto) 5.5, Eos % (Auto) 3.4, Baso % (Auto) 1.2, Neut # (Auto) 5.3, Lymph # (Auto) 2.8, [place] # (Auto) 0.5, Eos # (Auto) 0.3, Baso # (Auto) 0.1 08/05/22 07:20: Sodium 136, Potassium 3.9, Chloride 109 H, Carbon Dioxide 22, Anion Gap 8.9, BUN 10 D, Creatinine 0.60 D, Estimated Creat Clear 166, Estimated GFR 119, Est GFR ( Amer) 144 D, Glucose 100, Calcium 8.6, Total Bilirubin 0.8, AST 60 H D, ALT 73, Alkaline Phosphatase 76, Total Protein 6.5, Albumin 3.7, Globulin 2.8, Albumin/Globulin Ratio 1.3 I & O for Labs for Last 24 Hours: Intake & Output 08/03/22 08/04/22 08/05/22 08/06/22 11:59 11:59 11:59 11:59 Output Total 0 / 0 Balance 0 / 0 Weight 166 lb Microbiology Reports for the Last 24 Hours: Microbiology 08/04/22 22:15 Vaginal Gram Stain - Final 08/04/22 22:15 Vaginal Genital Culture - Preliminary Head: Present atraumatic ENT: Present normal exam Neck: Present normal inspection Respiratory: Present normal respiratory effort; Absent accessory muscle use Extremities: Present normal inspection; Absent tenderness Comment:: No calf tenderness Assessment and Plan *Assessment and plan (1) Endometritis following delivery: Status: Acute Category: Medical Code(s): O86.12 - Endometritis following delivery (2) fever: Status: Acute Category: Medical Code(s): O86.4 - Pyrexia of unknown origin following delivery Plan Given the fact that she had a temperature yesterday at noon of 100.3, we will go ahead and continue with her IV antibiotics for another day. We will keep her here until tomorrow. We will order an ultrasound tomorrow to look for retained products.
--- NOTE | 2022-08-06 07:21 | US_ITS ---
PROCEDURE INFORMATION: Exam: US Nonobstetric Pelvis; Complete Exam date and time: 08/06/2022 8:39 AM Age: 26 years old Clinical indication: Other: Post fever/uti; Prior surgery; Surgery date: <1 month; Surgery type: ; Additional info: Fever, rule out retained products-- UTI -- sepsis TECHNIQUE: Imaging protocol: Transabdominal pelvic nonobstetric ultrasound. Complete exam. Real time ultrasound with image documentation. COMPARISON: PTV US PELVIS-TRANSVAGINAL ONLY 03/27/2016 2:49 PM FINDINGS: Uterus: The uterus measures 13 x 5 x 10 cm. There is a hyperechoic region in the lower uterine segment in keeping with recent postoperative changes. The endometrium measures 4.2 mm. There is trace amount of endometrial fluid. No evidence of endometrial lesions to suggest retained products of conception. Right ovary/adnexa: The right ovary measures 0.7 x 2.9 x 2.7 cm (16 mL) Ovarian stroma is unremarkable. There is normal arterial inflow and venous outflow. Left ovary/adnexa: The left ovary measures 3.6 x 3.3 x 1.9 cm (12 mL) Ovarian stroma is unremarkable. There is normal arterial inflow and venous outflow. Intraperitoneal space: No pelvic free fluid. Urinary bladder: Normal. IMPRESSION: 1. No evidence of endometrial lesions to suggest retained products of conception. 2. Hyperechoic region in the lower uterine segment in keeping with provided history of recent section. 3. Unremarkable evaluation of the ovaries
--- NOTE | 2022-08-06 08:44 | PC.NURSE ---
Radiology personnel at bedside for /S.
[2022-08-06 09:20] VITALS: BP 114/68; PULSE 86; RESP 16; TEMP 36.9; O2SAT 100
[2022-08-06 12:00] VITALS: BP 120/77; PULSE 100; RESP 16; TEMP 36.7; O2SAT 99
[2022-08-06 17:00] VITALS: BP 123/81; PULSE 87; RESP 17; TEMP 36.9; O2SAT 97
--- NOTE | 2022-08-06 17:22 | PC.NURSE ---
1700 RN reassessment completed at this time, no changes from AM assessment. Pt has been up several times to void, denies any difficulty with urination. She has also showered and had bed linens changed by staff, tolerates activity well. Pt has remained afebrile this shift. Lung sounds CTA with no c/o SOA. Abd soft and nontender with BS active in all quads, tolerating regular diet well without any nausea. LTV incision C/D/I with no s/s infection. Pt reports scant vaginal bleeding. VSS. Dinner tray set up at this time, at bedside. Call light within reach, no needs/concerns voiced.
[2022-08-06 17:57] LABS: Gentamicin,Trough 5.1 ug/ml (0.0-2.0)
[2022-08-06 19:45] VITALS: BP 133/81; PULSE 83; RESP 18; TEMP 36.8; O2SAT 98
--- NOTE | 2022-08-07 06:01 | PC.NURSE ---
0500, Reassessment note. No acute changes to note since my previous assessment. Patient remains alert and oriented x3. Lung sounds are clear throughout. Has remained afebrile this shift. Patient has been up most of the night tending to . Denies pain or discomfort. VSS. Denies BM this shift. States voiding without difficulty and voiding often due to IV fluids. at bedside. Bed remains locked and in low position, call light within reach. Will continue to monitor. Patient really hoping she is being discharged home today.
[2022-08-07 06:26] VITALS: BP 109/68; PULSE 84; RESP 20; TEMP 36.7
--- NOTE | 2022-08-07 07:08 | PC.NURSE ---
report given to regis moran
[2022-08-07 08:50] VITALS: BP 122/69; PULSE 84; RESP 17; TEMP 36.8; O2SAT 100
--- NOTE | 2022-08-07 10:03 | P.DS_ITS ---
General Admission date:: 08/04/22 Discharge date: 08/07/22 HPI HPI HPI: She is a 26-year-old 1 para 1 who is about 11 days from a C- section. She had a temperature of 102 degrees at home and when she was seen here she was tachycardic and had a low-grade temperature. White blood cell count was 20. She initially received 1 dose of Rocephin IM but I elected to call her back and admit her for IV antibiotics. Exam Data for Last 24 hours Vital signs and Labs for Last 24 Hours: Temp Pulse Resp BP Pulse Ox 98.1 F 84 20 109/68 L 98 08/07/22 06:26 08/07/22 06:26 08/07/22 06:26 08/07/22 06:26 08/06/22 19:45 Laboratory Results - last 24 hr 08/06/22 17:30: Gentamicin Trough 5.1 H* I & O for Last 24 hours: Intake & Output 08/04/22 08/05/22 08/06/22 08/07/22 11:59 11:59 11:59 11:59 Output Total 0 / 0 Balance 0 / 0 Weight 166 lb Microbiology Reports for the Last 24 Hours: Microbiology 08/04/22 22:15 Vaginal Gram Stain - Final 08/04/22 22:15 Vaginal Genital Culture - Preliminary Gram Positive Cocci Constitutional Constitutional: no acute distress *Routine HEENT Exam Head: Present normocephalic *Routine Neck Exam Neck: Present supple and full ROM *Routine Respiratory Exam Respiratory: Present CTA bilaterally and normal respiratory effort; Absent accessory muscle use *Routine Cardiovascular Exam Cardiovascular: Present RRR *Routine Abdominal Exam Abdominal: Present soft, normoactive bowel sounds and surgical scars; Absent tenderness Results Data Completed and Pending Labs on day of discharge: Labs from last 24 hours 08/06/22 17:30 Gentamicin Trough 5.1 H* Preliminary micro results at discharge 08/04/22 22:15 Genital Culture - Preliminary Vaginal Gram Positive Cocci DS: Diagnosis Discharge Diagnosis (1) Endometritis following delivery: Status: Acute (2) fever: Status: Acute Meds Home Medications and Allergies Home Medications Medication Instructions Recorded Confirmed Type amoxicillin 875 mg-potassium 1 tab PO BID #14 tabs 08/07/22 Rx clavulanate 125 mg tablet New Prescriptions to Start Prescriptions: amoxicillin-pot clavulanate Lamonte Abreu Allergies Allergy/AdvReac Type Severity Reaction Status Date / Time naproxen Allergy Severe Heart Verified 07/18/22 09:29 Palpitations Discharge Plan Disposition Patient Disposition: Home, Self-Care Follow up Plan Prescriptions/Medication Reconciliation: New amoxicillin-pot clavulanate 875-125 mg tablet 1 tab PO BID Qty: 14 0RF Problem Reconciliation Problems Reviewed?: Yes Patient Discharge Instructions ACTIVITY: Continue current activity and No heavy lifting DIET: regular diet Providers Primary Care Provider: Francois Thomas Admit Provider: Lamonte Abreu Attending Provider: Lamonte Abreu
== END 2022-08-07 11:40 | disposition home or self-care (01) ==
PROVIDERS: Admitting Provider Nurse Practitioner Obstetrics & Gynecology; PCP Internal Medicine Adolescent Medicine; Visit Provider Nurse Practitioner Obstetrics & Gynecology
DX: O86.4 Pyrexia of unknown origin following delivery (principal); O86.12 Endometritis following delivery
CPT/HCPCS: 36415; 71045; 76856; 80053; 80170; 83605; 85025; 87070; 87077; 87186; 87205; G0378; J0290

== ENCOUNTER → 2023-03-26 14:03 | Outpatient (CLI) | payer BC, SELFPAY ==
[2023-03-26 19:34] LABS: Alanine Aminotransferase 89 U/L (12-78); Albumin Level 4.8 g/dl (3.5-5.0); Albumin/Globulin Ratio 1.5 (1.1-1.8); Alkaline Phosphatase 66 U/L (38-126); Anion Gap 15.3 mEq/L (5-15); Aspartate Amino Transferase 68 U/L (14-36); Bilirubin,Total 1.6 mg/dl (0.2-1.3); Blood Urea Nitrogen 9 mg/dl (7-17); Carbon Dioxide 21 mmol/L (22.0-30.0); Chloride 106 mmol/L (98-107); Chol/HDL Ratio 4.3 (1-3.5); Cholesterol 207 mg/dl (140-200); Estimated Glomerular Filt Rate 99 ml/min (>60); GFR (African American) 120 ML/MIN (>60); Globulin 3.2 g/dL (1.3-3.2); Glucose 99 mg/dl (74-100); HDL Cholesterol 48 mg/dl (40-60); Potassium 4.3 mmoL/L (3.5-5.1); Sodium 138 mmol/L (136-145); Triglycerides 139 mg/dl (30-150); VLDL Cholesterol 28 mg/dL (0-40)
[2023-03-26 19:39] LABS: Basophils % 0.6 % (0.1-2.0); Eosinophils # 0.2 K/mm3 (0.0-0.4); Eosinophils % 3.3 % (0.1-12.0); Hematocrit 43.3 % (37.0-47.0); Hemoglobin 15.1 g/dL (12.2-16.2); Lymphocytes # 2.8 K/mm3 (0.7-4.5); Lymphocytes % 40.7 % (10-50); Mean Corpuscular HGB Conc 34.8 g/dL (31.8-35.4); Mean Corpuscular Hemoglobin 33.6 pg (27.0-31.2); Mean Corpuscular Volume 96.8 fl (81-99); Mean Platelet Volume 8.6 fl (7.4-10.4); Monocytes # 0.4 K/mm3 (0.1-1.0); Monocytes % 5.4 % (1.7-9.3); Neutrophils # 3.4 K/mm3 (1.8-7.8); Platelet Count 325 K/mm3 (142-424); Red Blood Count 4.48 M/mm3 (4.20-5.40); Red Cell Distribution Width 12.8 % (11.5-17.5); White Blood Count 6.8 K/mm3 (4.8-10.8)
[2023-03-26 19:45] LABS: Direct LDL Cholesterol 127.61 mg/dL (100-129)
[2023-03-26 19:51] LABS: 25-OH Vitamin D, Total 26.5 ng/mL (30-100); T4 (Thyroxine) 9.6 ug/dl (5.53-11.0)
[2023-03-26 20:04] LABS: Thyroid Stimulating Hormone 0.59 uIU/mL (0.465-4.68)
== END ==
PROVIDERS: PCP Emergency Medicine; Visit Provider Emergency Medicine
DX: E55.9 Vitamin D deficiency, unspecified (principal); R53.83 Other fatigue; Z68.30 Body mass index [BMI] 30.0-30.9, adult
CPT/HCPCS: 80053; 80061; 82306; 84436; 84443; 85025

== ENCOUNTER → 2023-05-02 08:53 | Outpatient (CLI) | payer BC, SELFPAY ==
[2023-05-02 09:07] LABS: Basophils # 0.1 K/mm3 (0-0.2); Basophils % 0.8 % (0.1-2.0); Eosinophils # 0.2 K/mm3 (0.0-0.4); Eosinophils % 2.5 % (0.1-12.0); Hematocrit 43.7 % (37.0-47.0); Hemoglobin 14.6 g/dL (12.2-16.2); Lymphocytes % 37.8 % (10-50); Mean Corpuscular HGB Conc 33.5 g/dL (31.8-35.4); Mean Corpuscular Hemoglobin 32.4 pg (27.0-31.2); Mean Corpuscular Volume 96.8 fl (81-99); Mean Platelet Volume 7.3 fl (7.4-10.4); Monocytes # 0.5 K/mm3 (0.1-1.0); Monocytes % 5.9 % (1.7-9.3); Neutrophils # 4.3 K/mm3 (1.8-7.8); Platelet Count 320 K/mm3 (142-424); Red Blood Count 4.52 M/mm3 (4.20-5.40); Red Cell Distribution Width 12.5 % (11.5-17.5)
[2023-05-02 09:33] LABS: Chloride 106 mmol/L (98-107)
[2023-05-02 09:34] LABS: Potassium 3.9 mmoL/L (3.5-5.1); Sodium 139 mmol/L (136-145)
[2023-05-02 09:36] LABS: Alanine Aminotransferase 49 U/L (12-78); Albumin Level 4.7 g/dl (3.5-5.0); Albumin/Globulin Ratio 1.6 (1.1-1.8); Alkaline Phosphatase 66 U/L (38-126); Anion Gap 9.9 mEq/L (5-15); Aspartate Amino Transferase 40 U/L (14-36); Bilirubin,Total 0.8 mg/dl (0.2-1.3); Blood Urea Nitrogen 10 mg/dl (7-17); Carbon Dioxide 27 mmol/L (22.0-30.0); Estimated Glomerular Filt Rate 85 ml/min (>60); GFR (African American) 103 ML/MIN (>60); Globulin 2.9 g/dL (1.3-3.2); Total Protein,Serum 7.6 g/dl (6.3-8.2)
[2023-05-02 09:37] LABS: Calcium 9.1 mg/dl (8.4-10.2); Glucose 98 mg/dl (74-100)
[2023-05-02 09:54] LABS: HCG,Quantitative < 2 mIU/ml (0-5.42)
== END ==
PROVIDERS: PCP Internal Medicine Adolescent Medicine; Visit Provider Obstetrics & Gynecology
DX: R87.612 Low grade squamous intraepithelial lesion on cytologic smear of cervix (LGSIL) (principal)
CPT/HCPCS: 36415; 80053; 84702; 85025

== ENCOUNTER 2023-05-04 06:01 | Day surgery (SDC) | payer BC, SELFPAY ==
[2023-05-04 06:21] VITALS: BP 120/77; PULSE 84; RESP 18; TEMP 36.1; O2SAT 97; BMI 28.8
--- NOTE | 2023-05-04 07:05 | EXP.ANES.CKL ---
[facility] Disclaimer: The information contained in this section may have been updated after the patient was seen, as this information can be updated by other users. Medical History Acute blood loss anemia LINDEN II (cervical intraepithelial neoplasia II) Hemorrhoid History of COVID-19 History of gastroesophageal reflux (GERD) Irritable bowel syndrome (IBS) LGSIL on Pap smear of cervix Migraines Urinary tract infection Vulvar lesion Surgical History History of removal of skin mole Hx of colonoscopy Hx of cosmetic plastic surgery Hx of nasal septoplasty Hx of wisdom tooth extraction S/P Family History Grandmother Family history of kidney stone Family history of cancer Family/Other Family history of kidney stone Family history of hyperlipidemia Family history of cancer Grandfather Family history of asthma Family history of COPD (chronic obstructive pulmonary disease) Family history of hyperlipidemia Family history of hypertension Family history of cancer Grandfather Family history of hypertension Family history of cancer Grandmother Family history of stroke Family history of hypertension Family history of cancer Father Family history of hypertension Social History Smoking Status: Never smoker second hand exposure: No alcohol intake: never substance use type: denies use current occupational status: unemployed Travel in the last 8 weeks: None adopted: No household members: spouse and children housing: house marital status: number of children: 3 current occupation: [employer] current occupational exposures/hazards: No caffeine: Yes do you feel safe at home: Yes victim of physical abuse: No victim of emotional abuse: No victim of sexual abuse: No [employer] Anesthesia Checklist Patient Identification Patient Identification: Arm Band and Verbal (Name & ) Structural Data Admitted From: Home Planned Operative Procedure/s: LEEP Consent for Planned Operative Procedure(s) Verified: Yes NPO Status Verified Time NPO: 00:00 Chart Verification Results Verified: HCG Additional verifications Anesthesia Reactions: No Hx Blood Transfusions: Yes Blood Transfusion Reaction: No Airway Assessment Mallampati Score:: Class I C-Spine Mobility Assessed: Yes TMJ Mobility Assessed: Yes Dentition: Good Dentition Neurological Assessment Level of Consciousness: Awake Hx Seizures: No Numbness or tingling in extremities: No Anesthesia Plan Anesthesia Risk discussed: Yes Anesthesia Plan: Verified ASA Class: I Anesthesia Type: MAC
[2023-05-04 08:07] VITALS: BP 99/65; PULSE 102; RESP 14; TEMP 36.3; O2SAT 94
[2023-05-04 08:17] VITALS: BP 104/59; PULSE 87; RESP 14; O2SAT 94
[2023-05-04 08:27] VITALS: BP 114/77; PULSE 88; RESP 17; O2SAT 95
--- NOTE | 2023-05-04 08:29 | P.OP_ITS ---
Date of procedure: 05/04/23 Pre-op Diagnosis:: 1. LINDEN II 2. Vulvar lesion Post-op Diagnosis:: 1. LINDEN II 2. Vulvar lesion Procedure performed:: 1. Loop electrosurgical excision procedure 2. Excision of vulvar lesion Surgeon:: Farzaneh Taylor DO Captain/Check Airman(s):: N/a SUPERIOR COURT JUSTICE:: Loyda Lugo Anesthesia: MAC Estimated blood loss (mL): 0 Clinical Note:: Mrs Domitila Mendoza is a 27 yo P1001 who presents to [facility] for scheduled p rocedure.. Pap smear 02/15/23 demonstrated LSIL. Colposcopy with biopsy was performed. Biopsy at 6 o'clock demonstrated LINDEN II/HSIL). She also reports small dark colored lesion on right side of her vulva that presented during . It hasn't increased in size and is not painful. She admits she had another similar lesion that became darker and fell off. She states this morning she had bladder pain that feels like a urinary tract infection. Operative findings:: 1. Grossly normal appearing cervix and vagina. No lesions or discharge 2. 2mm dark maria skin lesion on right side of vulva proximal to mons. It resembles an acrochordon Operative note:: Risks, benefits and alternatives were discussed with the patient. Risks include but are not limited to bleeding, infection, and VTE. Patient voiced understanding and agreed to proceed. She was wheeled back to the operating room and placed under general anesthesia without difficulty. She was placed in dorsal lithotomy position and prepped and draped in the normal sterile fashion. Straight catheter was used to drain the bladder. A urine sample was sent for UA and culture. An insulated speculum was inserted into the vagina. Medium size loop was selected to excise portion of anterior cervix. Second pass with small loop was used to excise posterior portion of ectocervix. Small loop was used to obtain a top hat for excision of endocervix. The bed of excised cervical tissue was cauterized with ball Bovi cautery. Hemostasis was noted. All instruments were removed from the vagina. Attention was turned to mons pubis. Area under lesion was injected with 0.5 % marcaine without epinephrine. Lesion was grasped with pickups and excised at the base with small curved Hayes scissors. Small amount of oozing noted at base of excision. Silver nitrate stick x 1 was applied. Hemostasis was noted. Patient was awaken from anesthesia without difficulty. She was transported to recovery room in stable condition. Patient will be discharged home when awake and ambulating. She was also given instructions to follow-up in the office in 2 weeks. Condition: stable Disposition: same day Specimens:: 1. Anterior ectocervix 2. Posterior ectocervix 3. Endocervix 4. Vulvar lesion Complications:: None
[2023-05-04 08:37] VITALS: BP 103/73; PULSE 81; RESP 17; O2SAT 96
[2023-05-04 11:50] LABS: Microscopic, Urine URINE MICROSCOPIC (MICROSCOPIC)
[2023-05-04 12:14] LABS: Appearance,Urine CLEAR (Clear); Bilirubin,Urine Negative (Negative); Blood, Urine TRACE-I (Negative); Color,Urine YELLOW (Yellow); Glucose,Urine (UA) Negative (Negative); Ketones,Urine Negative (Negative); Leukocyte Esterase,Urine Negative (Negative); Nitrate,Urine Negative (Negative); PH,Urine 6.5 (5.0-8.5); Protein,Urine Negative (Negative); Specific Gravity, Urine 1.025 (1.005-1.030); Urobilinogen,Urine 0.2 EU/dl (0.2)
[2023-05-04 12:45] LABS: Bacteria,Urine Trace /lpf; Mucus,Urine Trace /lpf; Squamous Epithelial Cell,Urine Occasional #/hpf (0-5)
== END 2023-05-04 09:00 | disposition home or self-care (01) ==
PROVIDERS: PCP Emergency Medicine; Visit Provider Obstetrics & Gynecology
PROC: (CPT 57522; principal; 2023-05-04 07:30)
DX: N87.1 Moderate cervical dysplasia (principal); L85.8 Other specified epidermal thickening; L83 Acanthosis nigricans
CPT/HCPCS: 57522; 11420; 81001; 87086; J2405

== ENCOUNTER 2024-02-13 13:29 | Outpatient (CLI) | payer BC, SELFPAY ==
[2024-02-13 14:25] LABS: HCG,Quantitative 244 mIU/ml (0-5.42)
[2024-02-15 12:14] LABS: Progesterone 5.1 ng/mL (.)
== END 2024-02-13 23:59 | disposition home or self-care (01) ==
LOC: LAB 13:30
PROVIDERS: PCP Internal Medicine Adolescent Medicine; Visit Provider Obstetrics & Gynecology
DX: N92.6 Irregular menstruation, unspecified (principal)
CPT/HCPCS: 36415; 84144; 84702

== ENCOUNTER 2024-02-15 09:14 | Outpatient (CLI) | payer BC, SELFPAY ==
[2024-02-15 10:30] LABS: HCG,Quantitative 622 mIU/ml (0-5.42)
== END 2024-02-15 23:59 | disposition home or self-care (01) ==
PROVIDERS: PCP Internal Medicine Adolescent Medicine; Visit Provider Obstetrics & Gynecology
DX: Z34.90 Encounter for supervision of normal pregnancy, unspecified, unspecified trimester (principal)
CPT/HCPCS: 36415; 84702

== ENCOUNTER 2024-02-19 10:30 | Outpatient (CLI) | payer BC, SELFPAY ==
[2024-02-19 11:41] LABS: HCG,Quantitative 6120 mIU/ml (0-5.42)
== END 2024-02-19 23:59 | disposition home or self-care (01) ==
LOC: LAB 10:31
PROVIDERS: PCP Internal Medicine Adolescent Medicine; Visit Provider Obstetrics & Gynecology
DX: Z34.90 Encounter for supervision of normal pregnancy, unspecified, unspecified trimester (principal)
CPT/HCPCS: 36415; 84702

== ENCOUNTER 2024-02-22 13:39 | Outpatient (CLI) | payer BC, SELFPAY ==
--- NOTE | 2024-02-22 13:39 | US_ITS ---
PROCEDURE: US OB <= 14 WEEKS FETUS CLINICAL INDICATION: viable and dates COMPARISON: No exams were available for comparison FINDINGS: Transvaginal sonographic images of the pelvis were obtained. From her last menstrual period she is 6weeks 2days. An intrauterine gestational sac is present with a pole with a crown-rump length of 0.24cm This correlates to a gestational age of 5weeks 6days. heart tones were seen but rate equal Yolk sac is noted. The yolk sac measures 4.0mm. The right ovary is seen and appears normal. There are multiple, small peripheral follicles. There is a corpus luteum present in the right ovary. The left ovary is seen and appears normal. There are multiple, small peripheral follicles. There is no fluid in the cul-de-sac. IMPRESSION: 1. There is a gestational sac with yolk sac and pole within the uterine cavity. heart tones were seen but could not be recorded. 2. Both ovaries are seen and appear polycystic. The right ovary has a corpus luteum. 3. No fluid in the cul-de-sac. 4. Suggest repeat ultrasound within 1 week. Dictated by: Lamonte Abreu MD 02/23/2024 10:18 Lamonte Abreu MD in OV 02/23/2024 10:18
== END 2024-02-22 23:59 | disposition home or self-care (01) ==
LOC: RAD 13:39
PROVIDERS: PCP Internal Medicine Adolescent Medicine; Visit Provider Obstetrics & Gynecology
DX: Z34.91 Encounter for supervision of normal pregnancy, unspecified, first trimester (principal); Z3A.01 Less than 8 weeks gestation of pregnancy
CPT/HCPCS: 76801

== ENCOUNTER 2024-02-29 12:54 | Outpatient (CLI) | payer BC, SELFPAY ==
--- NOTE | 2024-02-29 12:57 | US_ITS ---
PROCEDURE: US OB <= 14 WEEKS FETUS CLINICAL INDICATION: Dates, Viability, 1 week f/u COMPARISON: US US OB <= 14 WEEKS FETUS from 02/22/2024 FINDINGS: Transvaginal sonographic images of the pelvis were obtained. From her last menstrual period she is 7weeks 2days. An intrauterine gestational sac is present with a pole with a crown-rump length of 0.57cm This correlates to a gestational age of 6weeks 3days. ANTHONY 10/21/2024 heart tones are present with an FHR of 125bpm. Yolk sac is noted. The yolk sac measures 5.0mm. The right ovary is seen and appears polycystic. There are multiple small peripheral follicles. There is a corpus luteum. The left ovary is seen and appears polycystic. There are multiple small peripheral follicles. There is no fluid in the cul-de-sac. IMPRESSION: 1. Viable fetus within the uterine cavity with heart rate activity seen. 2. Fetus measures 6 weeks 3 days, ANTHONY will be 10/21/2024. 3. Both ovaries are seen and appear polycystic. 4. No fluid in the cul-de-sac. Dictated by: Lamonte Abreu MD 03/01/2024 07:08 Lamonte Abreu MD in OV 03/01/2024 07:08
== END 2024-02-29 23:59 | disposition home or self-care (01) ==
LOC: RAD 12:55
PROVIDERS: PCP Internal Medicine Adolescent Medicine; Visit Provider Obstetrics & Gynecology
DX: Z34.91 Encounter for supervision of normal pregnancy, unspecified, first trimester (principal); Z3A.01 Less than 8 weeks gestation of pregnancy
CPT/HCPCS: 76801

== ENCOUNTER 2024-03-05 11:35 | Outpatient (CLI) | payer BC, SELFPAY | END 2024-03-05 23:59 | disposition home or self-care (01) | LOC: LAB.DROPOF 03-06 11:36 | PROVIDERS: PCP Obstetrics & Gynecology; Visit Provider Obstetrics & Gynecology | DX: Z34.90 Encounter for supervision of normal pregnancy, unspecified, unspecified trimester (principal) | CPT/HCPCS: 87086 ==

== ENCOUNTER 2024-03-11 12:43 | Outpatient (CLI) | payer BC, SELFPAY ==
--- NOTE | 2024-03-11 12:43 | US_ITS ---
PROCEDURE: US OB <= 14 WEEKS FETUS CLINICAL INDICATION: Dates COMPARISON: No exams were available for comparison FINDINGS: Transvaginal sonographic images of the pelvis were obtained. From her last menstrual period she is 8weeks 0 days. An intrauterine gestational sac is present with a pole with a crown-rump length of 1.68cm This correlates to a gestational age of 8weeks 1day. ANTHONY 10/20/2024 heart tones are present with an FHR of 161bpm. Yolk sac is noted. The yolk sac measures 5.0mm. The right ovary is seen and appears normal. Appears polycystic with multiple small peripheral follicles. The left ovary is seen and appears normal. Appears polycystic with multiple small peripheral follicles. There is no fluid in the cul-de-sac. IMPRESSION: 1. Viable fetus within the uterine cavity. There is heart activity seen. 2. Fetus measures 8 weeks 1 day, consistent with her last menstrual period. ANTHONY will remain 10/21/2024. 3. Both ovaries are seen and appear polycystic. 4. No fluid in the cul-de-sac. Dictated by: Lamonte Abreu MD 03/11/2024 15:26 Lamonte Abreu MD in OV 03/11/2024 15:26
== END 2024-03-11 23:59 | disposition home or self-care (01) ==
LOC: RAD 12:43
PROVIDERS: PCP Internal Medicine Adolescent Medicine; Visit Provider Obstetrics & Gynecology
DX: Z34.91 Encounter for supervision of normal pregnancy, unspecified, first trimester (principal); Z3A.08 8 weeks gestation of pregnancy
CPT/HCPCS: 76801

== ENCOUNTER 2024-03-24 10:42 | Outpatient (CLI) | payer BC, SELFPAY ==
[2024-03-24 11:17] LABS: Basophils # 0.1 K/mm3 (0-0.2); Basophils % 0.6 % (0.1-2.0); Eosinophils # 0.1 K/mm3 (0.0-0.4); Eosinophils % 1.3 % (0.1-12.0); Hematocrit 40.7 % (37.0-47.0); Hemoglobin 14.2 g/dL (12.2-16.2); Lymphocytes # 2.8 K/mm3 (0.7-4.5); Lymphocytes % 26.4 % (10-50); Mean Corpuscular HGB Conc 34.9 g/dL (31.8-35.4); Mean Corpuscular Hemoglobin 32.4 pg (27.0-31.2); Mean Platelet Volume 6.8 fl (7.4-10.4); Monocytes # 0.5 K/mm3 (0.1-1.0); Monocytes % 4.4 % (1.7-9.3); Neutrophils % 67.3 % (37.0-80.0); Platelet Count 319 K/mm3 (142-424); Red Blood Count 4.38 M/mm3 (4.20-5.40); Red Cell Distribution Width 13.1 % (11.5-17.5); White Blood Count 10.4 K/mm3 (4.8-10.8)
[2024-03-24 14:24] LABS: HIV (1&2) Antibody Rapid NONREACTIVE (NONREACTIVE)
[2024-03-25 08:59] LABS: HCV Ab Non Reactive (Non Reactive); Hepatitis B Surface Antigen Negative (Negative); Rubella Antibodies, IgG 3.16 index (Immune >0.99)
[2024-03-25 11:15] LABS: Rapid Plasma Reagin Ab Titer Non Reactive titer (NonRea<1:1)
[2024-03-25 12:13] LABS: Progesterone 24.7 ng/mL (.)
== END 2024-03-24 23:59 | disposition home or self-care (01) ==
LOC: LAB 10:43
PROVIDERS: PCP Internal Medicine Adolescent Medicine; Visit Provider Obstetrics & Gynecology
DX: Z34.90 Encounter for supervision of normal pregnancy, unspecified, unspecified trimester (principal)
CPT/HCPCS: 36415; 84144; 85025; 86593; 86762; 86803; 86850; 87340; 87389

== ENCOUNTER 2024-05-08 18:22 | Observation (INO) | payer BC, SELFPAY ==
[2024-05-08] VITALS (9 sets, daily range): BP systolic 108–140; BP diastolic 61–96; PULSE 73–97; RESP 16–20; TEMP 36.7–36.9; O2SAT 97–99; BMI 31.8; BMI 32.4; BMI 29.3
--- NOTE | 2024-05-08 18:51 | EXP.UTC ---
Discharge Plan Disposition Patient Disposition: Still a Patient Prescriptions Prescriptions: No Action [id number] 27 mg iron-800 mcg-260 mg capsule 1 cap PO DAILY Qty: 90 3RF progesterone micronized [Prometrium] 200 mg capsule 200 mg vaginal QHS 30 Days Qty: 30 2RF Rx Instructions: insert vaginally every night at bedtime magnesium oxide 400 mg magnesium tablet 400 mg PO BID Qty: 60 0RF Referrals Follow up/Referrals: Francois Thomas MD [Primary Care Provider] - See instructions Print Language Print Language: Cook Islander Discharge ED Provider: Marci March [facility] [place] General Stated complaint: poss uti Mode of Arrival: Ambulatory Source of Information: Patient Limitations: No Limitations Time Seen by Provider: 05/08/24 18:52 Description of Symptoms (Recalled from Triage Doc. by RN): PATIENT C/O SORENESS TO MIDDLE OF ABDOMEN AND PAIN WITH URINATION THAT STARTED THIS MORNING. PATIENT IS 16 WEEKS HEENT Symptoms (Recalled from RN notes): No Resp Symptoms (Recalled from RN notes): No Skin Symptoms (Recalled from RN notes): No MS Symptoms (Recalled from RN notes): No Functional Status (Recalled from RN notes): WNL History of Present Illness Provider Complaint: Patient states that she is 16wks OB States that since this morning she is feeling sore in her lower abdomen area and worse when she uses her stomach muscles or bears down to start urinating States that it is uncomfortable in her lower abdomen and discomfort starts around middle of her lower abdomen to the right and worse when she changes positions. States that where she was having some pressure in her lower abdomen she thought she may have UTI so she called OBGYN ultrasound sonographer Dr Taylor and she told her to come in and get her urine checked Related Data Previous Rx's ?Medication ?Instructions ?Recorded PNV no.151-iron 27 mg-folic 800 1 cap PO DAILY #90 caps 08/21/23 mcg-omega3 260 ky-fvr-pmv-fish capsule progesterone micronized 200 mg 200 mg vaginal QHS 30 days #30 caps 02/15/24 capsule (Prometrium) magnesium oxide 400 mg PO BID #60 tabs 03/24/24 Allergies Allergy/AdvReac Type Severity Reaction Status Date / Time naproxen Allergy Severe Heart Verified 04/29/24 09:26 Palpitations Worker's Comp Is this a Worker's Comp case?: No [facility] Disclaimer: The information contained in this section may have been updated after the patient was seen, as this information can be updated by other users. 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 Surgical History (Updated 04/29/24 @ 10:32 by Farzaneh Taylor DO) History of S/P History of removal of skin mole Hx of colonoscopy Hx of nasal septoplasty Hx of wisdom tooth extraction Hx of cosmetic plastic surgery Family History Grandmother Family history of kidney stone Family history of cancer Family/Other Family history of kidney stone Family history of hyperlipidemia Family history of cancer Grandfather Family history of asthma Family history of COPD (chronic obstructive pulmonary disease) Family history of hyperlipidemia Family history of hypertension Family history of cancer Grandfather Family history of hypertension Family history of cancer Grandmother Family history of stroke Family history of hypertension Family history of cancer Father Family history of hypertension Social History Smoking Status: Never smoker second hand exposure: No alcohol intake: never substance use type: denies use current occupational status: unemployed Travel in the last 8 weeks: None adopted: No household members: spouse and children housing: house marital status: number of children: 3 current occupation: [employer] current occupational exposures/hazards: No caffeine: Yes do you feel safe at home: Yes victim of physical abuse: No victim of emotional abuse: No victim of sexual abuse: No ROS Obtained: Yes All systems reviewed & no additional complaints except as documented and Yes Systems reviewed as appropriate & no additional complaints except as documented Constitutional Constitutional: Reports system reviewed and no additional complaints, except as documented, Reports as per HPI, Denies body ache, Denies chills and Denies fever(s) ENT Ears, Nose, Mouth, and Throat: Reports system reviewed and no additional complaints, except as documented and Reports as per HPI Cardiovascular Cardiovascular: Reports system reviewed and no additional complaints, except as documented and Reports as per HPI Respiratory Respiratory: Reports system reviewed and no additional complaints, except as documented and Reports as per HPI Gastrointestinal Gastrointestingal: Reports system reviewed and no additional complaints, except as documented, as per HPI and abdominal pain (pain/discomfort in her lower abdomen with movement or bearing down) Comments: 16wks OB Genitourinary Female Genitourinary: Reports system reviewed and no additional complaints, except as documented, Reports as per HPI and Reports urinary urgency Comments: reports soreness/discomfort lower abdomen Physical Exam General General appearance: alert and in no apparent distress ENT ENT exam: Present mucous membranes moist Respiratory Respiratory exam: Present normal lung sounds bilaterally; Absent respiratory distress or wheezes Cardiovascular Cardiovascular exam: Present regular rate, normal rhythm and normal heart sounds Abdominal Exam Abdominal exam: Present tenderness (reports tenderness/discomfort lower mid abdomen and worse in right lower abdomen since this am worse with movement) Neurological Exam Neurological exam: Present alert, oriented X3 and normal gait Medical Decision Making Medical Records Screening: Per USPSTF and CDC recommendations, given the prevalence of disease in our region, it is our hospital?s policy to screen for HIV and viral Hepatitis for all patients aged 18 and over and those with ongoing risk factors. Richie Inquiry Pt receiving controlled substance: No Richie was queried for this patient: No Vital Signs: 05/08/24 18:35 Temperature 98.1 F Temperature Source Oral Pulse Rate [Left Brachial] 92 H Respiratory Rate 20 Blood Pressure [Left Arm] 121/63 Blood Pressure Mean [Left Arm] 82 Blood Pressure Source [Left Arm] Automatic Cuff Blood Pressure Position [Left Arm] Sitting 02 Sat by Pulse Oximetry 98 Oxygen Delivery Method Room Air Lab Data Lab results reviewed: Yes I reviewed the patient's lab results. Medical Decision Narrative: Patient states that pain is worse when she goes from sitting to standing, or lying to sitting when she engages her stomach muscles States that pain started this am and she has been having the urge to urinate frequently but no burning States that she is 16wks OB Denies spotting, denies known fever, Patient reports still has appendix and area of complaint is lower mid abdomen and to the right with area of most tenderness on right lower abdomen, with pain worsening with engagement of stomach muscles, movement and palpation, Concern for appendicitis Called and discussed patient with Dr Taylor and recommended transfer to the ED for further work up and US will transfer to the ED Called patient being moved to room 8
--- NOTE | 2024-05-08 19:10 | PC.NURSE ---
PATIENT SENT TO ER PER Margi VOSS APRN FOR FURTHER EVALUATION. REPORT GIVEN TO DR. LANDAVERDE BY Margi VOSS APRN. PATIENT AMBULATED TO ER WITH [facility] STAFF AT THIS TIME
[2024-05-08 19:12] LABS: Apearance,Urine Clear (Clear); Color,Urine Yellow (Yellow); PH,Urine 6.5 (5.0-8.5)
[2024-05-08 19:13] LABS: Bilirubin,Urine Negative (Negative); Blood, Urine Trace (Negative); Glucose,Urine (UA) Negative (Negative); Ketones,Urine Negative (Negative); Protein,Urine Negative (Negative); UTC Leukocyte Esterase,Urine Negative (Negative); UTC Nitrate,Urine Negative (Negative); Urobilinogen,Urine 0.2 EU/dl (0.2)
[2024-05-08] MEDS: 0.9 % SODIUM CHLORIDE 1000ML 1,000 ML 999 ML IV (19:36)
[2024-05-08] MEDS: ACETAMINOPHEN 1,000MG/100ML VIAL 1000 MG IV (19:36)
--- NOTE | 2024-05-08 19:36 | ED_ITS ---
Discharge Plan Disposition Patient Disposition: Still a Patient Prescriptions Prescriptions: No Action [id number] 27 mg iron-800 mcg-260 mg capsule 1 cap PO DAILY Qty: 90 3RF progesterone micronized [Prometrium] 200 mg capsule 200 mg vaginal QHS 30 Days Qty: 30 2RF Rx Instructions: insert vaginally every night at bedtime magnesium oxide 400 mg magnesium tablet 400 mg PO BID Qty: 60 0RF Referrals Follow up/Referrals: Francois Thomas MD [Primary Care Provider] - See instructions Clinical Impressions Clinical Impression: Abdominal pain affecting , Second trimester , Abdominal pain, RLQ Instructions Patient Instructions: DI for Acute Abdominal Pain Print Language Print Language: Slovenian Discharge ED Provider: Marci March General Adult HPI General Chief complaint: Abdominal Pain Stated complaint: poss uti Time Seen by Provider: 05/08/24 18:52 Mode of Arrival: Ambulatory Source of Information: Patient Limitations: No Limitations Description of Symptoms (Recalled from ER Triage Doc. by RN): Pt is 16 weeks , confirmed by OBGYN. Pt states she woke up with frequent urination and buring. Pt also has complaints of right lower abdominal pain that radiates to left lower abdomen. Pt states abdomen is tender to the touch. No pain at rest, 4/10 pain with movement. No complaints of nausea or vomiting. History of Present Illness HPI narrative: Patient is a 16-week by dates G2, P1 who presents being sent from our urgent treatment clinic for abdominal pain. States she started having some vaginal discomfort followed by frequent urination and dysuria thinking that she had a urinary tract infection as she has had multiple UTIs in the past with the last but had an unremarkable urine dip from [facility] and was sent to the emergency department for further evaluation. States that she has pain in her lower abdomen particular with any type of movement. Denies any history of any abdominal surgeries. Denies any vaginal bleeding vaginal discharge loss of fluid contractions etc. Related Data Previous Rx's ?Medication ?Instructions ?Recorded PNV no.151-iron 27 mg-folic 800 1 cap PO DAILY #90 caps 08/21/23 mcg-omega3 260 [id number]-epb-lsy-fish capsule progesterone micronized 200 mg 200 mg vaginal QHS 30 days #30 caps 02/15/24 capsule (Prometrium) magnesium oxide 400 mg PO BID #60 tabs 03/24/24 Allergies Allergy/AdvReac Type Severity Reaction Status Date / Time naproxen Allergy Severe Heart Verified 04/29/24 09:26 Palpitations PFSH [facility] Disclaimer: The information contained in this section may have been updated after the patient was seen, as this information can be updated by other users. 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 Surgical History (Updated 04/29/24 @ 10:32 by Farzaneh Taylor DO) History of S/P History of removal of skin mole Hx of colonoscopy Hx of nasal septoplasty Hx of wisdom tooth extraction Hx of cosmetic plastic surgery Family History Grandmother Family history of kidney stone Family history of cancer Family/Other Family history of kidney stone Family history of hyperlipidemia Family history of cancer Grandfather Family history of asthma Family history of COPD (chronic obstructive pulmonary disease) Family history of hyperlipidemia Family history of hypertension Family history of cancer Grandfather Family history of hypertension Family history of cancer Grandmother Family history of stroke Family history of hypertension Family history of cancer Father Family history of hypertension Social History Smoking Status: Never smoker second hand exposure: No alcohol intake: never substance use type: denies use current occupational status: unemployed Travel in the last 8 weeks: None adopted: No household members: spouse and children housing: house marital status: number of children: 3 current occupation: [employer] current occupational exposures/hazards: No caffeine: Yes do you feel safe at home: Yes victim of physical abuse: No victim of emotional abuse: No victim of sexual abuse: No Other Medical History Have you received the Flu Vaccine for this season: No Have you received the Pneumonia Vaccine: No ROS Obtained: Yes All systems reviewed & no additional complaints except as documented Physical Exam General General appearance: alert and in no apparent distress Respiratory Respiratory exam: Present normal lung sounds bilaterally Cardiovascular Cardiovascular exam: Present regular rate and normal rhythm Abdominal Exam Abdominal exam: Present other (Patient has tenderness in bilateral lower quadrants no rebound or guarding no midline abdominal tenderness or upper abdominal tenderness) Neurological Exam Neurological exam: Present alert and oriented X3 Medical Decision Making Medical Records Screening: Per USPSTF and CDC recommendations, given the prevalence of disease in our region, it is our hospital?s policy to screen for HIV and viral Hepatitis for all patients aged 18 and over and those with ongoing risk factors. Richie Inquiry Pt receiving controlled substance: No Vital Signs: 05/08/24 18:35 05/08/24 19:15 05/08/24 19:30 Temperature 98.1 F Temperature Source Oral Pulse Rate [Left Brachial] 92 H 92 H 90 Respiratory Rate 20 20 18 Blood Pressure [Left Arm] 121/63 140/96 H 130/67 Blood Pressure Mean [Left Arm] 82 110 88 Blood Pressure Source [Left Arm] Automatic Cuff Automatic Cuff Automatic Cuff Blood Pressure Position [Left Arm] Sitting Sitting Supine 02 Sat by Pulse Oximetry 98 99 97 Oxygen Delivery Method Room Air Room Air Room Air 05/08/24 20:10 05/08/24 20:35 05/08/24 21:05 Temperature Temperature Source Pulse Rate [Left Brachial] 89 86 93 H Respiratory Rate 16 18 16 Blood Pressure [Left Arm] 116/75 115/61 113/64 Blood Pressure Mean [Left Arm] 88 79 80 Blood Pressure Source [Left Arm] Automatic Cuff Automatic Cuff Automatic Cuff Blood Pressure Position [Left Arm] Supine Supine 02 Sat by Pulse Oximetry 99 98 98 Oxygen Delivery Method Room Air Room Air Room Air Lab Data Lab Results 05/08/24 18:30: Urine Color Yellow, Urine Appearance Clear, Urine pH 6.5, Ur Specific [place] 1.015, Urine Protein Negative, Urine Glucose (UA) Negative, Urine Ketones Negative, Urine Blood Trace-i, Urine Nitrate Negative, Urine Bilirubin Negative, Urine Urobilinogen 0.2, Ur Leukocyte Esterase Negative, Urine RBC 3-5, Urine WBC Occasional, Ur Squamous Epith Cells 3-5, Urine Bacteria Trace 05/08/24 19:12: Urine Color Yellow, Urine Appearance Clear, Urine pH 6.5, Ur Specific [place] 1.020, Urine Protein Negative, Urine Glucose (UA) Negative, Urine Ketones Negative, Urine Blood Trace, Urine Nitrate Negative, Urine Bilirubin Negative, Urine Urobilinogen 0.2, Ur Leukocyte Esterase Negative 05/08/24 19:48: WBC 9.7, RBC 3.81 L, Hgb 12.1 L, Hct 35.8 L, MCV 93.9, MCH 31.9 H, MCHC 33.9, RDW 13.6, Plt Count 296, MPV 6.9 L, Neut % (Auto) 62.0, Lymph % (Auto) 29.7, [place] % (Auto) 5.5, Eos % (Auto) 1.8, Baso % (Auto) 1.0, Neut # (Auto) 6.0, Lymph # (Auto) 2.9, [place] # (Auto) 0.5, Eos # (Auto) 0.2, Baso # (Auto) 0.1, Sodium 135 L, Potassium 3.5, Chloride 107, Carbon Dioxide 21 L, Anion Gap 10.5, BUN 6 L, Creatinine 0.50 L, Estimated Creat Clear 208, Estimated GFR 145, Est GFR ( Amer) 175, Glucose 89, Calcium 10.6 H, Total Bilirubin 0.5, AST 31, ALT 20, Alkaline Phosphatase 50, C-Reactive Protein 8.8 H, Total Protein 6.9, Albumin 4.1, Globulin 2.8, Albumin/Globulin Ratio 1.5 05/08/24 19:48 05/08/24 19:48 Orders (Tests/Meds): ED MEDICATIONS Generic Name Dose Route Start Last Admin Trade Name Freq PRN Reason Stop Dose Admin Sodium Chloride 1,000 mls @ 100 mls/hr 05/08/24 21:45 Sod Chlor 0.9% 1000ml Bag IV 06/07/24 21:44 .Q10H JEREMIE Discontinued Medications Generic Name Dose Route Start Last Admin Trade Name Freq PRN Reason Stop Dose Admin Acetaminophen 1,000 mg 05/08/24 19:28 05/08/24 19:36 Acetaminophen 1,000mg/100ml Vial IV 05/08/24 19:29 1,000 mg ONCE ONE Administration Sodium Chloride 1,000 mls @ 999 mls/hr 05/08/24 19:30 05/08/24 19:36 Sod Chlor 0.9% 1000ml Bag IV 05/08/24 20:30 999 mls/hr .Q1H1M JEREMIE Administration ORDERS Category Date Time Status POCUS Point of Care (ER Only) Stat Exams 05/08/24 19:16 Completed CBC w/Auto Diff [Complete Blood Count Auto Diff] Stat Lab 05/08/24 19:48 Completed CMP [Comprehensive Metabolic Panel] Stat Lab 05/08/24 19:48 Completed CRP [C-Reactive Protein] Stat Lab 05/08/24 19:48 Completed UA [Urinalysis and Microscopic] Stat Lab 05/08/24 18:30 Completed Medical Decision Narrative: 28-year-old G2, P1 at 16 weeks gestational age presents today with lower abdominal discomfort and tenderness and trace hematuria on urine dip from [facility]. Will obtain a formal urinalysis with micro for further evaluation as she has signs and symptoms of urinary tract infection and thus what she was initially concerned about. However she does have lower abdominal discomfort differential includes round ligament pain, appendicitis, colitis, etc. Holding off on any CT imaging secondary to radiation exposure and discussed this with the patient she is agreeable. Will administer IV fluids IV Tylenol check basic blood work including inflammatory markers and reassess. Reassessment 9:45 PM labs unremarkable aside from very mild elevation in CRP. Urinalysis demonstrated trace hematuria. No evidence of urinary tract infection. Bedside ultrasound was unremarkable and confirmed single living IUP without any obvious abnormalities also no evidence of any hydronephrosis on bilateral kidneys to suggest that there is a obstructing kidney stone. On reassessment patient has significant and persistent right lower quadrant abdominal pain cannot rule out appendicitis. I discussed the case with Dr. Last who is on-call for OB who agreed to admit the patient for an MRI in the morning patient is agreeable to this plan. The remains diagnostic uncertainty patient was admitted in a stable condition. MRI was ordered for the morning she has been told to be n.p.o. at midnight. IV fluids will be continued overnight. Procedures Miscellaneous Procedure Procedure Performed: Limited OB ultrasound Indication: Abdominal pain Identified structures: [-Uterus -Left adnexa -Right adnexa -Pouch of [place]sor[place]] Findings: Uterus: Definitive IUP FHR: 143 Right adnexa: No free fluid Left adnexa: No free fluid Cul de sac: No free fluid Impression: -IUP: Present - heart rate: 143 -Ectopic : Absent -Free fluid: Absent Images were saved to permanent archive The study was technically adequate CPT Transabdominal: 36550-35 This study was performed by me, and I personally interpreted all images/videos. Based on my clinical judgement, these images were adequate and did not necessitate further imaging. Limited renal ultrasound Indication: A focused ultrasound of the kidneys was performed to evaluate for hydronephrosis and nephrolithiasis. The ultrasound was performed with the following indications, as noted in the H&P: Microscopic hematuria abdominal pain Identified structures: Both kidneys Findings: No evidence of bilateral hydronephrosis or secondary units of obstructing kidney stone Impression: Unremarkable bilateral limited ultrasound of the kidneys Images were saved to permanent archive The study was technically adequate CPT: 08191-69 This study was performed by me, and I personally interpreted all images/videos. Based on my clinical judgement, these images were adequate and did not necessitate further imaging. Critical Care Critical Care Time Critical Care Time: No
[2024-05-08 19:58] LABS: Basophils # 0.1 K/mm3 (0-0.2); Eosinophils # 0.2 K/mm3 (0.0-0.4); Eosinophils % 1.8 % (0.1-12.0); Hematocrit 35.8 % (37.0-47.0); Hemoglobin 12.1 g/dL (12.2-16.2); Lymphocytes # 2.9 K/mm3 (0.7-4.5); Lymphocytes % 29.7 % (10-50); Mean Corpuscular HGB Conc 33.9 g/dL (31.8-35.4); Mean Corpuscular Hemoglobin 31.9 pg (27.0-31.2); Mean Corpuscular Volume 93.9 fl (81-99); Mean Platelet Volume 6.9 fl (7.4-10.4); Monocytes # 0.5 K/mm3 (0.1-1.0); Monocytes % 5.5 % (1.7-9.3); Platelet Count 296 K/mm3 (142-424); Red Blood Count 3.81 M/mm3 (4.20-5.40); Red Cell Distribution Width 13.6 % (11.5-17.5); White Blood Count 9.7 K/mm3 (4.8-10.8)
[2024-05-08 20:27] LABS: Alanine Aminotransferase 20 U/L (12-78); Albumin Level 4.1 g/dl (3.5-5.0); Albumin/Globulin Ratio 1.5 (1.1-1.8); Alkaline Phosphatase 50 U/L (38-126); Aspartate Amino Transferase 31 U/L (14-36); Bilirubin,Total 0.5 mg/dl (0.2-1.3); Blood Urea Nitrogen 6 mg/dl (7-17); Calcium 10.6 mg/dl (8.4-10.2); Carbon Dioxide 21 mmol/L (22.0-30.0); Chloride 107 mmol/L (98-107); Creatinine Clearance Estimated 208 mL/min (50-200); Estimated Glomerular Filt Rate 145 ml/min (>60); GFR (African American) 175 ML/MIN (>60); Globulin 2.8 g/dL (1.3-3.2); Glucose 89 mg/dl (74-100); Potassium 3.5 mmoL/L (3.5-5.1); Total Protein,Serum 6.9 g/dl (6.3-8.2)
[2024-05-08 20:32] LABS: C-Reactive Protein 8.8 mg/L (0-4)
[2024-05-08 20:34] LABS: Microscopic, Urine URINE MICROSCOPIC (MICROSCOPIC)
[2024-05-08 20:37] LABS: Appearance,Urine CLEAR (Clear); Bilirubin,Urine Negative (Negative); Blood, Urine TRACE-I (Negative); Color,Urine YELLOW (Yellow); Glucose,Urine (UA) Negative (Negative); Ketones,Urine Negative (Negative); Leukocyte Esterase,Urine Negative (Negative); Nitrate,Urine Negative (Negative); PH,Urine 6.5 (5.0-8.5); Protein,Urine Negative (Negative); Specific Gravity, Urine 1.015 (1.005-1.030); Urobilinogen,Urine 0.2 EU/dl (0.2)
[2024-05-08 20:39] LABS: Anion Gap 10.5 mEq/L (5-15); Sodium 135 mmol/L (136-145)
[2024-05-08 21:04] LABS: Bacteria,Urine Trace /lpf; WBC,Urine Occasional #/hpf (0-3)
--- NOTE | 2024-05-08 21:46 | PC.NURSE ---
Report called to OB at this time
[2024-05-08] MEDS: 0.9 % SODIUM CHLORIDE 1000ML 1,000 ML 100 ML IV (22:17)
[2024-05-09 04:00] VITALS: BP 101/62; PULSE 94; RESP 17; TEMP 36.8; O2SAT 97
--- NOTE | 2024-05-09 07:54 | P.HPDS_ITS ---
General Admission date:: 05/08/24 Discharge date: 05/09/24 *Admission Date: 05/08/24 *Chief complaint: Abdominal pain in *History of present illness: Mrs Domitila Mendoza is a 28 yo at 16w3d who presented to [facility] with complaint of lower abdominal pain, urinary frequency and burning with urination. She thought she had another a UTI. She had frequent UTIs in her last preganncy. AMB urinalysis in [email or web address] was unremarkable. She was sent to ED for evaluation. Lower abdominal pain is present with any type of movement. She denies fever/chills, nausea and vomiting. No vaginal bleeding. Labs in ED showed mild elevated of CRP. Remainder of labs unremarkable. Urinalysis demostrated trace hematuria. Bedside ulltrasound in the ED single living IUP. Ultrasound of kidneys showed no hydronephrosis. While in the ED she had significant and persistent right lower quadrant abdominal pain cannot rule out appendicitis. Decision was made to admit overnight for MRI in the morning. This morning she is feeling well. She reports pain has resolved. Last night she ate a foot long sub and chips. She feels well this morning. No complaints or concerns. Vital signs stable afebrile. [facility] Disclaimer: The information contained in this section may have been updated after the patient was seen, as this information can be updated by other users. 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 Surgical History (Updated 04/29/24 @ 10:32 by Farzaneh Taylor DO) History of S/P History of removal of skin mole Hx of colonoscopy Hx of nasal septoplasty Hx of wisdom tooth extraction Hx of cosmetic plastic surgery Family History Grandmother Family history of kidney stone Family history of cancer Family/Other Family history of kidney stone Family history of hyperlipidemia Family history of cancer Grandfather Family history of asthma Family history of COPD (chronic obstructive pulmonary disease) Family history of hyperlipidemia Family history of hypertension Family history of cancer Grandfather Family history of hypertension Family history of cancer Grandmother Family history of stroke Family history of hypertension Family history of cancer Father Family history of hypertension Social History Smoking Status: Never smoker second hand exposure: No alcohol intake: never substance use type: denies use current occupational status: unemployed Travel in the last 8 weeks: None adopted: No household members: spouse and children housing: house marital status: number of children: 3 current occupation: [employer] current occupational exposures/hazards: No caffeine: Yes do you feel safe at home: Yes victim of physical abuse: No victim of emotional abuse: No victim of sexual abuse: No Other Medical History Have you received the Flu Vaccine for this season: No Have you received the Pneumonia Vaccine: No Review of Systems Review of Systems Review of systems:: pertinent systems reviewed and negative unless documented below *Gastrointestinal Gastrointestinal: Reports abdominal pain *Genitourinary Genitourinary: Reports dysuria Exam Data for Last 24 hours Vital signs and Labs for Last 24 Hours: Temp Pulse Resp BP Pulse Ox O2 Del Method 98.3 F 94 H 17 101/62 L 97 Room Air 05/09/24 04:00 05/09/24 04:00 05/09/24 04:00 05/09/24 04:00 05/09/24 04:00 05/09/24 04:00 Laboratory Results - last 24 hr 05/08/24 18:30: Urine Color Yellow, Urine Appearance Clear, Urine pH 6.5, Ur Specific [place] 1.015, Urine Protein Negative, Urine Glucose (UA) Negative, Urine Ketones Negative, Urine Blood Trace-i, Urine Nitrate Negative, Urine Bilirubin Negative, Urine Urobilinogen 0.2, Ur Leukocyte Esterase Negative, Urine RBC 3-5, Urine WBC Occasional, Ur Squamous Epith Cells 3-5, Urine Bacteria Trace 05/08/24 19:12: Urine Color Yellow, Urine Appearance Clear, Urine pH 6.5, Ur Specific [place] 1.020, Urine Protein Negative, Urine Glucose (UA) Negative, Urine Ketones Negative, Urine Blood Trace, Urine Nitrate Negative, Urine Bilirubin Negative, Urine Urobilinogen 0.2, Ur Leukocyte Esterase Negative 05/08/24 19:48: WBC 9.7, RBC 3.81 L, Hgb 12.1 L, Hct 35.8 L, MCV 93.9, MCH 31.9 H, MCHC 33.9, RDW 13.6, Plt Count 296, MPV 6.9 L, Neut % (Auto) 62.0, Lymph % (Auto) 29.7, Taney % (Auto) 5.5, Eos % (Auto) 1.8, Baso % (Auto) 1.0, Neut # (Auto) 6.0, Lymph # (Auto) 2.9, Taney # (Auto) 0.5, Eos # (Auto) 0.2, Baso # (Auto) 0.1, Sodium 135 L, Potassium 3.5, Chloride 107, Carbon Dioxide 21 L, Anion Gap 10.5, BUN 6 L, Creatinine 0.50 L, Estimated Creat Clear 208, Estimated GFR 145, Est GFR ( Amer) 175, Glucose 89, Calcium 10.6 H, Total Bilirubin 0.5, AST 31, ALT 20, Alkaline Phosphatase 50, C-Reactive Protein 8.8 H, Total Protein 6.9, Albumin 4.1, Globulin 2.8, Albumin/Globulin Ratio 1.5 I & O for Last 24 hours: Intake & Output 05/06/24 05/07/24 05/08/24 05/09/24 23:59 23:59 23:59 23:59 Intake Total 1100 / 1100 Balance 1100 / 1100 Weight 171 lb Constitutional Constitutional: no acute distress and cooperative *Routine HEENT Exam Head: Present normocephalic and atraumatic Eye: Absent conjunctivae pink ENT: Present mucous membranes moist *Routine Neck Exam Neck: Present full ROM *Routine Respiratory Exam Respiratory: Present CTA bilaterally and normal respiratory effort *Routine Cardiovascular Exam Cardiovascular: Present RRR *Routine Abdominal Exam Abdominal: Present soft (Gravid); Absent tenderness or distended *Routine Rectal Exam Rectal:: deferred *Routine Genitalia Exam Genitalia:: normal female *Routine Extremities Exam Extremities: Present full ROM; Absent edema or calf tenderness *Routine Neurological Exam Neurological: Present alert, moving all extremities and normal speech Routine Psychiatric Exam Psychiatric: Present normal affect and cooperative Meds Home Medications and Allergies Home Medications ?Medication ?Instructions ?Recorded ?Confirmed ?Type PNV no.151-iron 27 mg-folic 800 1 cap PO DAILY #90 caps 08/21/23 04/29/24 Rx mcg-omega3 260 [id number]-hyc-fish capsule magnesium oxide 400 mg PO BID #60 tabs 03/24/24 04/29/24 Rx New Prescriptions to Start Prescriptions: Allergies Allergy/AdvReac Type Severity Reaction Status Date / Time naproxen Allergy Severe Heart Verified 04/29/24 09:26 Palpitations Hospital Course Hospital Course Hospital Course: Mrs Domitila Mendoza is a 28 yo at 16w3d who presented to [facility] with complaint of lower abdominal pain, urinary frequency and burning with urination. She thought she had another a UTI. She had frequent UTIs in her last preganncy. AMB urinalysis in [facility] [[email or web address]] was unremarkable. She was sent to ED for evaluation. Lower abdominal pain is present with any type of movement. She denies fever/chills, nausea and vomiting. No vaginal bleeding. Labs in ED showed mild elevated of CRP. Remainder of labs unremarkable. Urinalysis demostrated trace hematuria. Bedside ulltrasound in the ED single living IUP. Ultrasound of kidneys showed no hydronephrosis. While in the ED she had significant and persistent right lower quadrant abdominal pain cannot rule out appendicitis. Decision was made to admit overnight for MRI in the morning. This morning she is feeling well. She reports pain has resolved. Last night she ate a foot long sub and chips. No complaints or concerns. Vital signs stable afebrile. Decision was made to proceed with MRI to evaluate appendix. Discussed pain may be round ligament pain. No abdominal pain on exam this morning. Discharge to home after MRI and follow-up in the office next week. Results Data Completed and Pending Labs on day of discharge: Labs from last 24 hours 05/08/24 05/08/24 05/08/24 19:48 19:12 18:30 WBC 9.7 RBC 3.81 L Hgb 12.1 L Hct 35.8 L MCV 93.9 MCH 31.9 H MCHC 33.9 RDW 13.6 Plt Count 296 MPV 6.9 L Neut % (Auto) 62.0 Lymph % (Auto) 29.7 Taney % (Auto) 5.5 Eos % (Auto) 1.8 Baso % (Auto) 1.0 Neut # (Auto) 6.0 Lymph # (Auto) 2.9 Taney # (Auto) 0.5 Eos # (Auto) 0.2 Baso # (Auto) 0.1 Sodium 135 L Potassium 3.5 Chloride 107 Carbon Dioxide 21 L Anion Gap 10.5 BUN 6 L Creatinine 0.50 L Estimated Creat Clear 208 Estimated GFR 145 Est GFR ( Amer) 175 Glucose 89 Calcium 10.6 H Total Bilirubin 0.5 AST 31 ALT 20 Alkaline Phosphatase 50 C-Reactive Protein 8.8 H Total Protein 6.9 Albumin 4.1 Globulin 2.8 Albumin/Globulin Ratio 1.5 Urine Color Yellow Yellow Urine Appearance Clear Clear Urine pH 6.5 6.5 Ur Specific [place] 1.020 1.015 Urine Protein Negative Negative Urine Glucose (UA) Negative Negative Urine Ketones Negative Negative Urine Blood Trace Trace-i Urine Nitrate Negative Negative Urine Bilirubin Negative Negative Urine Urobilinogen 0.2 0.2 Ur Leukocyte Esterase Negative Negative Urine RBC 3-5 Urine WBC Occasional Ur Squamous Epith Cells 3-5 Urine Bacteria Trace DS: Diagnosis Discharge Diagnosis (1) Abdominal pain, RLQ: Status: Acute Code(s): R10.31 - Right lower quadrant pain (2) Second trimester : Status: Acute Code(s): Z34.92 - Encounter for supervision of normal , unspecified, second trimester Discharge Plan Disposition Patient Disposition: Home, Self-Care Condition: Good Follow up Plan Follow up with: Rosa Leyva DO [Staff Physician] - None Farzaneh Taylor DO [Staff Physician] - 1 week Prescriptions/Medication Reconciliation: Continued [id number] 27 mg iron-800 mcg-260 mg capsule 1 cap PO DAILY Qty: 90 3RF magnesium oxide 400 mg magnesium tablet 400 mg PO BID Qty: 60 0RF Discontinued progesterone micronized [Prometrium] 200 mg capsule 200 mg vaginal QHS 30 Days Qty: 30 2RF Rx Instructions: insert vaginally every night at bedtime Problem Reconciliation Problems Reviewed?: Yes Patient Discharge Instructions ACTIVITY: Limited activity DIET: continue same diet and regular diet Print Language: [place] Providers Primary Care Provider: Francois Thomas Admit Provider: Rosa Leyva Attending Provider: Rosa Leyva
[2024-05-09 08:00] VITALS: BP 117/63; PULSE 95; RESP 18; TEMP 37; O2SAT 95
--- NOTE | 2024-05-09 08:00 | MR_ITS ---
FINAL REPORT CLINICAL HISTORY: Abdominal pain, 16 weeks , possible appendicitis FINDINGS: Multiplanar MR imaging of the abdomen was performed without contrast. Images of the liver reveal no evidence of mass. There is no evidence of biliary ductal dilatation. There are 2 large stones in the gallbladder measuring up to 23 mm. No other mass or adenopathy is identified. IMPRESSION: 2 large gallstones in the gallbladder with no evidence of biliary ductal dilatation. Reviewed, Interpreted and Dictated by Jair Ferguson III, MD Transcribed by Mariah Couch Authenticated and [facility]
--- NOTE | 2024-05-09 08:00 | MR_ITS ---
FINAL REPORT CLINICAL HISTORY: Abdominal pain, possible appendicitis, 16 weeks FINDINGS: Multiplanar MR images of the pelvis were performed without contrast. Note is made of an intrauterine . The placenta is predominantly fundal. There appears to be a normal amount of amniotic fluid. Multiple small follicles are seen in both ovaries. There is no adnexal mass. There is no free fluid. A tubular structure is seen medial to the cecum measuring up to 5 mm in diameter. This is felt to represent a normal appendix. IMPRESSION: No MR evidence of appendicitis. Intrauterine . Reviewed, Interpreted and Dictated by Jair Ferguson III, MD Transcribed by Mariah Couch Authenticated and [facility]
== END 2024-05-09 11:00 | disposition home or self-care (01) ==
LOC: UTC 19:12 → ER 19:12 → OB 22:01
PROVIDERS: Student in an Organized Health Care Education/Training Program; Admitting Provider Obstetrics & Gynecology; Emergency Provider Nurse Practitioner; PCP Internal Medicine Adolescent Medicine; Visit Provider Obstetrics & Gynecology
DX: R10.31 Right lower quadrant pain (principal); Z34.92 Encounter for supervision of normal pregnancy, unspecified, second trimester
CPT/HCPCS: 72195; 74181; 80053; 81001; 81003; 85025; 86140; 87086; 99285; G0378; J0131; J7030

== ENCOUNTER 2024-06-06 08:54 | Outpatient (CLI) | payer BC, SELFPAY ==
--- NOTE | 2024-06-06 08:58 | US_ITS ---
PROCEDURE: US OB /MATERNAL DETAIL CLINICAL INDICATION: 20 week Anatomy Scan, US OB Complete COMPARISON: US US OB <= 14 WEEKS FETUS from 02/22/2024 US US OB <= 14 WEEKS FETUS from 02/29/2024 US US OB <= 14 WEEKS FETUS from 03/11/2024 MR MR ABDOMEN WO CON from 05/09/2024 MR MR PELVIS WO CON from 05/09/2024 FINDINGS: Transabdominal sonographic images of the pelvis were obtained. From her established due date she is 20 weeks 3 days. Single viable intrauterine gestation. Breech position. Placenta: Posterior placenta grade 1. There is an average amount of fluid. The cervix appears satisfactory. Closed and measuring 4.33 cm in length. Complete survey performed and was unremarkable on the submitted images as in PACS. No discrete anomalies identified on survey imaging by technologist. Active fetus. Three-vessel cord with satisfactory umbilical cord insertion. Heart: Situs, aortic arch, RVOT, three-vessel view appear normal. Survey of brain & ventricles Unremarkable. Cerebellum, thalamus, choroid plexus, cisterna magna appear normal. Face and neck survey unremarkable. Profile, nasion, lips and nose appeared normal. Diaphragm and chest views unremarkable. Abdomen: Both kidneys noted and unremarkable. There is mild unilateral renal pelvis dilation measuring 4.0 mm. Stomach and bladder noted and satisfactory. Spine: Survey of the spine satisfactory with no anomalies identified nor imaged. Cervical, thoracic, lower spine appear normal. Both arms and legs noted. Amniotic Fluid: Adequate. MVP 4.36 cm Measurements: Average ultrasound age 20weeks 6days. Estimated due date by ultrasound age 0510/18/2024. Estimated weight 377g BPD = 20weeks 3days HC = 20weeks 6days AC = 21weeks 1day FL = 20weeks 4days Growth Percentile= 65 Heart Rate = 147bpm Cerebellum = 20weeks 6days Humerus = 21weeks 5days HC/AC is 1.16 FL/BPD is 0.71 FL/AC is 0.21 IMPRESSION: 1. Viable fetus in the and with a posterior placenta grade 1. 2. The fluid is within normal limits MVP 4.36 cm. 3. Anatomical scan appears normal. 4. Cardiac views appear normal but were incomplete and would suggest complete views in 2-3 weeks. 5. There is mild unilateral renal dilation measuring 4 mm and suggest follow-up for this at 28 weeks. 6. biometry is consistent with the dates. Dictated by: Lamonte Abreu MD 06/06/2024 10:55 Lamonte Abreu MD in [place] 06/06/2024 10:55
== END 2024-06-06 23:59 | disposition home or self-care (01) ==
LOC: RAD 08:55
PROVIDERS: PCP Internal Medicine Adolescent Medicine; Visit Provider Obstetrics & Gynecology
DX: Z36.3 Encounter for antenatal screening for malformations (principal); Z3A.20 20 weeks gestation of pregnancy; N87.1 Moderate cervical dysplasia; E55.9 Vitamin D deficiency, unspecified; E66.9 Obesity, unspecified
CPT/HCPCS: 76811

== ENCOUNTER 2024-06-20 09:53 | Outpatient (CLI) | payer BC, SELFPAY ==
--- NOTE | 2024-06-20 09:58 | US_ITS ---
PROCEDURE: US OB FOLLOW UP CLINICAL INDICATION: f/u views,hear,renal pelvis dialation COMPARISON: US US OB <= 14 WEEKS FETUS from 02/22/2024 US US OB <= 14 WEEKS FETUS from 02/29/2024 US US OB <= 14 WEEKS FETUS from 03/11/2024 US POINT OF CARE US (ER ONLY) from 05/08/2024 MR MR PELVIS WO CON from 05/09/2024 MR MR ABDOMEN WO CON from 05/09/2024 US US OB /MATERNAL DETAIL from 06/06/2024 FINDINGS: Transabdominal sonographic images of the pelvis were obtained. The following parameters are obtained: From her established due date she is 22weeks 3days Viable fetus in the breech presentation with a posterior placenta grade 1. The cervix measures 4.17 cm heart rate: 138bpm bpm. BPD: 23weeks 0 days HC: 23weeks 1day AC: 23weeks 0 days FL: 24weeks 0 days HC/AC: 1.16 FL/BPD: 0.77 FL/AC: 0.23 Growth percentile: 86 Amniotic fluid: MVP 7.36 cm No obvious anomalies evident. profile seen, stomach, bladder, kidneys, three-vessel cord, four chamber heart appear normal. heart: Four-chamber heart, LVOT, RVOT, three-vessel view appear normal. There is mild bilateral renal pelvis dilation measuring 2.0 mm and 2.3 mm, no further follow-up necessary. IMPRESSION: 1. Viable fetus in the breech presentation with a posterior placenta grade 1. 2. The fluid is within normal limits with an MVP 7.36 cm. 3. Anatomical scan appears normal today. 4. cardiac scan appears normal. 5. There is minimal bilateral renal pelvis dilation measuring 2.0 mm and 2.3 mm. 6. There has been good interval growth with the fetus currently 86 percentile. Dictated by: Lamonte Abreu MD 06/20/2024 11:32 Lamonte Abreu MD in [place] 06/20/2024 11:32
== END 2024-06-20 23:59 | disposition home or self-care (01) ==
LOC: RAD 09:55
PROVIDERS: PCP Internal Medicine Adolescent Medicine; Visit Provider Obstetrics & Gynecology
DX: Z36.2 Encounter for other antenatal screening follow-up (principal); Z3A.22 22 weeks gestation of pregnancy
CPT/HCPCS: 76816

== ENCOUNTER 2024-08-07 09:13 | Outpatient (CLI) | payer BC, SELFPAY ==
--- NOTE | 2024-08-07 09:13 | US_ITS ---
FINAL REPORT TECHNIQUE: Multiple transverse and longitudinal images CLINICAL HISTORY: Abdominal Pain in COMPARISON: None FINDINGS: The gallbladder demonstrates multiple large gallstones, measuring up to 28 mm in size. There is no wall thickening or biliary ductal dilatation to suggest acute gallbladder disease. No fluid collections are noted. Limited portions of the right liver are remarkable for fatty infiltration of the liver.. Limited portions of the right kidney are unremarkable. IMPRESSION: Uncomplicated cholelithiasis. Fatty infiltration of the liver. Reviewed, Interpreted and Dictated by Jose Sky MD Transcribed by Dina Phillips Authenticated and [facility]
--- NOTE | 2024-08-07 09:32 | US_ITS ---
PROCEDURE: US OB BIOPHYSICAL PROFILE CLINICAL INDICATION: Abdominal Pain in -bpp growth with RITCHIE COMPARISON: US US OB <= 14 WEEKS FETUS from 03/11/2024 US US OB FOLLOW UP from 06/20/2024 FINDINGS: Transabdominal sonographic images of the uterus were obtained. From her established due date she is 29weeks 2days. The following parameters are obtained: Viable Fetus in the breech presentation with and posterior placenta grade 2. Average ultrasound age is 30weeks 6days Estimated weight 1,546g, 3 lb 7 oz The cervix measures 3.37 cm. Measurements: heart Rate = 146bpm BPD = 30weeks 6days, 83 percentile HC = 32weeks 1day, 91 percentile AC = 30weeks 2days, 71 percentile FL = 29weeks 6days, 51 percentile HC/AC is 1.12 FL/BPD is 0.74 FL/AC is 0.22 74 percentile Amniotic fluid index: 20.68cm, MVP 6.39 cm. Qualitative AFV:2 Breathing movements: 2 Gross Body Movements: 2 Tone: 2 Biophysical profile score: 8 No obvious anomalies evident.Kidneys, profile, stomach, bladder, four-chamber heart, three-vessel cord appear normal. There is mild unilateral renal pelvis dilation measuring 6.2 mm. IMPRESSION: 1. Viable fetus in the breech presentation with a posterior placenta grade 2. 2. The fluid is within normal limits with amniotic fluid index 20.68 cm, MVP 6.39 cm. 3. Biophysical profile is 8/8 with good breathing movement and movement seen. 4. There has been good interval growth with the fetus currently 74th percentile. 5. There is mild unilateral renal pelvis dilation measuring 6.2 mm. 6. The rest of the limited anatomical scan appears normal. Dictated by: Lamonte Abreu MD 08/07/2024 13:18 Lamonte Abreu MD in [place] 08/07/2024 13:18
== END 2024-08-07 23:59 | disposition home or self-care (01) ==
LOC: RAD 09:13
PROVIDERS: PCP Internal Medicine Adolescent Medicine; Visit Provider Obstetrics & Gynecology
DX: K80.20 Calculus of gallbladder without cholecystitis without obstruction (principal); R10.11 Right upper quadrant pain; O26.893 Other specified pregnancy related conditions, third trimester; Z3A.29 29 weeks gestation of pregnancy
CPT/HCPCS: 76705; 76816; 76819

== ENCOUNTER 2024-08-20 10:26 | Outpatient (CLI) | payer BC, SELFPAY ==
--- NOTE | 2024-08-20 10:30 | US_ITS ---
PROCEDURE: US OB BIOPHYSICAL PROFILE CLINICAL INDICATION: Bleeding in , look at placenta COMPARISON: US US OB <= 14 WEEKS FETUS from 02/29/2024 US US OB <= 14 WEEKS FETUS from 03/11/2024 US US OB /MATERNAL DETAIL from 06/06/2024 US OB FOLLOW UP from 06/20/2024 US OB BIOPHYSICAL PROFILE from 08/07/2024 FINDINGS: Transabdominal sonographic images of the uterus were obtained. From her established due date she is 31weeks 1day. The following parameters are obtained: Viable Fetus in the cephalic presentation with a posterior placenta grade 2. No evidence of placental abruption or previa. Average ultrasound age is 32weeks 1day Estimated weight 1,839g, 4 lb 1 oz The cervix measures 3.67 cm Measurements: heart Rate = 149bpm BPD = 31weeks 3days, 48 percentile HC = 33weeks 3days, 73 percentile AC = 31weeks 5days, 63 percentile FL = 31weeks 5days, 50 percentile HC/AC is 1.09 FL/BPD is 0.78 FL/AC is 0.22 60 percentile Amniotic fluid index: 14.64cm, MVP 4.02 cm Qualitative AFV:2 Breathing movements: 2 Gross Body Movements: 2 Tone: 2 Biophysical profile score: 8 No obvious anomalies evident.Kidneys, profile, bladder, stomach, four-chamber heart, three-vessel cord appear normal. There is mild bilateral renal pelvis dilation measuring 5.9 mm and 3.3 mm IMPRESSION: 1. Viable fetus in the cephalic presentation with a posterior placenta grade 2. There is no evidence of placental abruption or previa. 2. The fluid is within normal limits with an amniotic fluid index 14.64 cm, MVP 4.02 cm. 3. Biophysical profile is 8/8 with good breathing movement and movement seen. 4. There has been good interval growth with the fetus currently 60th percentile. 5. Limited anatomical scan appears normal. 6. There is mild bilateral renal pelvis dilation measuring 5.9 mm and 3.3 mm. Suggest follow-up at 36 weeks. Dictated by: Lamonte Abreu MD 08/20/2024 14:36 Lamonte Abreu MD in [place] 08/20/2024 14:36
== END 2024-08-20 23:59 | disposition home or self-care (01) ==
PROVIDERS: PCP Internal Medicine Adolescent Medicine; Visit Provider Obstetrics & Gynecology
DX: O46.93 Antepartum hemorrhage, unspecified, third trimester (principal); Z3A.31 31 weeks gestation of pregnancy
CPT/HCPCS: 76816; 76819

== ENCOUNTER 2024-08-22 08:25 | Outpatient (CLI) | payer BC, SELFPAY ==
[2024-08-22 10:02] LABS: Basophils % 0.4 % (0.1-2.0); Eosinophils # 0.2 K/mm3 (0.0-0.4); Eosinophils % 2.1 % (0.1-12.0); Hematocrit 33.3 % (37.0-47.0); Hemoglobin 11.3 g/dL (12.2-16.2); Lymphocytes # 2.4 K/mm3 (0.7-4.5); Lymphocytes % 29.3 % (10-50); Mean Corpuscular HGB Conc 33.9 g/dL (31.8-35.4); Mean Corpuscular Hemoglobin 30.7 pg (27.0-31.2); Mean Corpuscular Volume 90.5 fl (81-99); Mean Platelet Volume 9.1 fl (7.4-10.4); Monocytes # 0.5 K/mm3 (0.1-1.0); Monocytes % 5.8 % (1.7-9.3); Neutrophils # 5.1 K/mm3 (1.8-7.8); Neutrophils % 61.5 % (37.0-80.0); Platelet Count 266 K/mm3 (142-424); Red Blood Count 3.68 M/mm3 (4.20-5.40); Red Cell Distribution Width 12.8 % (11.5-17.5); White Blood Count 8.2 K/mm3 (4.8-10.8)
[2024-08-22 10:06] LABS: Glucose 1 Hour 153 mg/dL (74-100)
[2024-08-22 13:58] LABS: RPR W/RFX Titers Nonreactive (Nonreactive)
== END 2024-08-22 23:59 | disposition home or self-care (01) ==
PROVIDERS: PCP Internal Medicine Adolescent Medicine; Visit Provider Obstetrics & Gynecology
DX: Z34.93 Encounter for supervision of normal pregnancy, unspecified, third trimester (principal); Z3A.31 31 weeks gestation of pregnancy
CPT/HCPCS: 36415; 82947; 85025; 86592

== ENCOUNTER 2024-09-12 11:54 | Outpatient (CLI) | payer BC, SELFPAY ==
[2024-09-12 11:58] VITALS: BMI 31.0
[2024-09-12] MEDS: MVI, ADULT NO.1 WITH VIT K 10 ML, THIAMINE HCL 100 MG, MAGNESIUM SULFATE 2 GM in LACTAT... 125 ML IV (12:30)
[2024-09-12 12:47] VITALS: BMI 31.0
[2024-09-12 12:57] LABS: Basophils % 0.4 % (0.1-2.0); Eosinophils # 0.1 K/mm3 (0.0-0.4); Hematocrit 33.8 % (37.0-47.0); Hemoglobin 11.4 g/dL (12.2-16.2); Lymphocytes % 28.1 % (10-50); Mean Corpuscular HGB Conc 33.7 g/dL (31.8-35.4); Mean Corpuscular Hemoglobin 29.8 pg (27.0-31.2); Mean Corpuscular Volume 88.3 fl (81-99); Monocytes # 0.4 K/mm3 (0.1-1.0); Monocytes % 5.6 % (1.7-9.3); Neutrophils # 4.5 K/mm3 (1.8-7.8); Neutrophils % 63.9 % (37.0-80.0); Nucleated Red Blood Cells # 0 10^3/uL; Nucleated Red Blood Cells % 0 %; Platelet Count 245 K/mm3 (142-424); Red Blood Count 3.83 M/mm3 (4.20-5.40); Red Cell Distribution Width 13.5 % (11.5-17.5); Red Cell Distribution Width-SD 42.9 fL; White Blood Count 7.1 K/mm3 (4.8-10.8)
[2024-09-12 13:06] LABS: Albumin Level 3.5 g/dl (3.5-5.0); Chloride 109 mmol/L (98-107); Potassium 3.6 mmoL/L (3.5-5.1); Sodium 137 mmol/L (136-145)
[2024-09-12 13:09] LABS: Alanine Aminotransferase 18 U/L (12-78); Albumin/Globulin Ratio 1.1 (1.1-1.8); Alkaline Phosphatase 137 U/L (38-126); Amylase 67 U/L (30-110); Anion Gap 14.6 mEq/L (5-15); Aspartate Amino Transferase 25 U/L (14-36); Bilirubin,Total 0.8 mg/dl (0.2-1.3); Blood Urea Nitrogen 3 mg/dl (7-17); Calcium 9.1 mg/dl (8.4-10.2); Carbon Dioxide 17 mmol/L (22.0-30.0); Creatinine Clearance Estimated 213 mL/min (50-200); Estimated Glomerular Filt Rate 145 ml/min (>60); GFR (African American) 175 ML/MIN (>60); Globulin 3.3 g/dL (1.3-3.2); Glucose 104 mg/dl (74-100); Total Protein,Serum 6.8 g/dl (6.3-8.2)
[2024-09-12 13:16] LABS: Lipase 66 U/L (23-300); Magnesium 1.6 mg/dl (1.6-2.3)
[2024-09-12 13:34] LABS: Fetal Fibronectin (Rapid) Negative (Negative)
== END 2024-09-12 16:37 | disposition home or self-care (01) ==
LOC: OBOUT 11:56 → OB 11:57
PROVIDERS: PCP Internal Medicine Adolescent Medicine; Visit Provider Obstetrics & Gynecology
DX: O60.03 Preterm labor without delivery, third trimester (principal); Z3A.34 34 weeks gestation of pregnancy; O99.613 Diseases of the digestive system complicating pregnancy, third trimester; K80.10 Calculus of gallbladder with chronic cholecystitis without obstruction
CPT/HCPCS: 80053; 82150; 82731; 83690; 83735; 85025; G0463; J3411; J7120

== ENCOUNTER 2024-09-24 13:01 | Outpatient (CLI) | payer BC, SELFPAY ==
--- NOTE | 2024-09-24 13:00 | US_ITS ---
PROCEDURE: US OB BIOPHYSICAL PROFILE CLINICAL INDICATION: 36 week OB growth, BPP, kidney views COMPARISON: US US OB <= 14 WEEKS FETUS from 02/29/2024 US US OB <= 14 WEEKS FETUS from 03/11/2024 MR MR PELVIS WO CON from 05/09/2024 MR MR ABDOMEN WO CON from 05/09/2024 US US OB /MATERNAL DETAIL from 06/06/2024 US US OB FOLLOW UP from 06/20/2024 US US OB BIOPHYSICAL PROFILE from 08/07/2024 US US OB BIOPHYSICAL PROFILE from 08/20/2024 FINDINGS: Transabdominal sonographic images of the uterus were obtained. From her established due date she is 36weeks 1day. The following parameters are obtained: Viable Fetus in the cephalic presentation with a posterior placenta grade 2. Average ultrasound age is 36weeks 6days Estimated weight 2,971g, 6 lb 9 oz Cervix measures 3.57 cm. Measurements: heart Rate = 136bpm BPD = 35weeks 3days, 35 percentile HC = 38weeks 2days, 70 percentile AC = 36weeks 4days, 69 percentile FL = 36weeks 5days, 60 percentile HC/AC is 1.03 FL/BPD is 0.82 FL/AC is 0.22 64 percentile Amniotic fluid index: 16.88cm, MVP 5.80 cm Qualitative AFV:2 Breathing movements: 2 Gross Body Movements: 2 Tone: 2 Biophysical profile score: 8 No obvious anomalies evident.Kidneys, profile, stomach, bladder, four-chamber heart, three-vessel cord appear normal. There is mild unilateral renal pelvis dilation measuring 6.3 mm. IMPRESSION: 1. Viable fetus in the cephalic presentation with a posterior placenta grade 2. 2. The fluid is within normal limits with an amniotic fluid index 16.88 cm, MVP 5.80 cm. 3. Biophysical profile is 8/8 with good breathing movement and movement seen. 4. There has been good growth with the fetus currently 64th percentile. 5. Limited anatomical scan appears normal. 6. There continues to be mild unilateral renal pelvis dilation measuring 6.3 mm. Dictated by: Lamonte Abreu MD 09/25/2024 04:34 Lamonte Abreu MD in [place] 09/25/2024 04:34
== END 2024-09-24 23:59 | disposition home or self-care (01) ==
LOC: RAD 13:03
PROVIDERS: PCP Internal Medicine Adolescent Medicine; Visit Provider Obstetrics & Gynecology
DX: O26.899 Other specified pregnancy related conditions, unspecified trimester (principal)
CPT/HCPCS: 76816; 76819

== ENCOUNTER 2024-10-14 05:04 | Inpatient (IN) | payer BC, SELFPAY ==
[2024-10-14] VITALS (20 sets, daily range): BP systolic 101–149; BP diastolic 52–96; PULSE 70–98; RESP 16–18; TEMP 36.1–37.1; O2SAT 96–100; BMI 30.5
[2024-10-14] MEDS: LACTATED RINGERS 1000ML 1,000 ML 250 ML IV (05:30)
[2024-10-14 05:44] LABS: Microscopic, Urine URINE MICROSCOPIC (MICROSCOPIC)
[2024-10-14 05:45] LABS: Appearance,Urine CLEAR (Clear); Bilirubin,Urine Negative (Negative); Blood, Urine Negative (Negative); Color,Urine YELLOW (Yellow); Glucose,Urine (UA) Negative (Negative); Ketones,Urine Negative (Negative); Leukocyte Esterase,Urine TRACE (Negative); Nitrate,Urine Negative (Negative); Protein,Urine Negative (Negative); Urobilinogen,Urine 0.2 EU/dl (0.2)
[2024-10-14 05:46] LABS: Basophils # 0.1 K/mm3 (0-0.2); Basophils % 0.6 % (0.1-2.0); Eosinophils # 0.3 Kmm3 (0.0-0.4); Eosinophils % 3.2 % (0.1-12.0); Hematocrit 31.9 % (37.0-47.0); Hemoglobin 10.8 g/dL (12.2-16.2); Immature Granulocytes % 1.2 %; Lymphocytes # 2.9 K/mm3 (0.7-4.5); Lymphocytes % 33.9 % (10-50); Mean Corpuscular HGB Conc 33.9 g/dL (31.8-35.4); Mean Corpuscular Volume 85.8 fl (81-99); Mean Platelet Volume 9.2 fl (7.4-10.4); Monocytes # 0.6 K/mm3 (0.1-1.0); Monocytes % 6.9 % (1.7-9.3); Neutrophils # 4.7 K/mm3 (1.8-7.8); Neutrophils % 54.2 % (37.0-80.0); Nucleated Red Blood Cells # 0 10^3/uL; Nucleated Red Blood Cells % 0 %; Platelet Count 284 K/mm3 (142-424); Red Blood Count 3.72 M/mm3 (4.20-5.40); Red Cell Distribution Width 13.9 % (11.5-17.5); Red Cell Distribution Width-SD 43.2 fL; White Blood Count 8.7 K/mm3 (4.8-10.8)
[2024-10-14 05:54] LABS: Bacteria,Urine 1+ /lpf
--- NOTE | 2024-10-14 07:10 | EXP.ANES.CKL ---
[facility] Disclaimer: The information contained in this section may have been updated after the patient was seen, as this information can be updated by other users. Medical History Maternal obesity affecting , antepartum contractions Headache Nausea and vomiting during Vaginal bleeding during Abdominal pain affecting , antepartum Gall stones Vulvar lesion Migraines Irritable bowel syndrome (IBS) History of gastroesophageal reflux (GERD) Hemorrhoid LINDEN II (cervical intraepithelial neoplasia II) LGSIL on Pap smear of cervix Surgical History History of S/P History of removal of skin mole Hx of colonoscopy Hx of nasal septoplasty Hx of wisdom tooth extraction Hx of cosmetic plastic surgery Family History Grandmother Family history of kidney stone Family history of cancer Family/Other Family history of kidney stone Family history of hyperlipidemia Family history of cancer Grandfather Family history of asthma Family history of COPD (chronic obstructive pulmonary disease) Family history of hyperlipidemia Family history of hypertension Family history of cancer Grandfather Family history of hypertension Family history of cancer Grandmother Family history of stroke Family history of hypertension Family history of cancer Father Family history of hypertension Social History Smoking Status: Never smoker second hand exposure: No alcohol intake: never substance use type: denies use current occupational status: employed Travel in the last 8 weeks?: None adopted: No household members: spouse and children housing: house marital status: number of children: 3 current occupation: [employer] current occupational exposures/hazards: No caffeine: Yes do you feel safe at home: Yes victim of physical abuse: No victim of emotional abuse: No victim of sexual abuse: No Have you lived/traveled outside US in past 30 days?: No Contact w/someone who lives/traveled outside US past 30 days?: No Exposure to someone with infectious disease in past 14 days?: No Do you have a fever (greater than 100.4 F or 38 C)?: No Have you tested positive for COVID-19?: No Exposed to someone with COVID-19 in past 14 days?: No Do you have a sore throat?: No Do you have a cough?: No Do you have any weakness?: No Do you have any diarrhea?: No Are you experiencing any unusual bleeding?: No Do you have any muscle aches/pain?: No Do you have any abdominal pain?: No Are you experiencing loss of taste or smell?: No [employer] Anesthesia Checklist Patient Identification Patient Identification: Arm Band and Verbal (Name & ) Structural Data Admitted From: Inpatient Planned Operative Procedure/s: Consent for Planned Operative Procedure(s) Verified: Yes Verified Documents: Surgical Consent and History and Physical NPO Status Verified Time NPO: 00:00 Additional verifications Anesthesia Reactions: No Hx Blood Transfusions: Yes Blood Transfusion Reaction: No Airway Assessment Mallampati Score:: Class II Dentition: Good Dentition Neurological Assessment Level of Consciousness: Awake, Alert and Appropriate Anesthesia Plan Anesthesia Risk discussed: Yes Anesthesia Plan: Verified ASA Class: II Anesthesia Type: Spinal
--- NOTE | 2024-10-14 07:14 | EXP.OB.APHP ---
OB - H&P: HPI Antepartum History of Present Illness Chief complaint: Scheduled repeat History of present illness: Mrs Domitila Mendoza is a 29 yo at 39w0d who presents to [facility] L&D for scheduled repeat . She has had good care. History of x 1. complicated by maternal obesity, recurrent UTIs and abdominal pain secondary to gall stones. History of Present Criteria for establishing EDC:: based on 1st trimester US only care: good care Ultrasounds: normal mid trimester US Obstetrical complications: none Labs Blood type: A (+) positive Rubella: immune RPR/VDRL: nonreactive HBsAG: negative PFSH PFS Disclaimer: The information contained in this section may have been updated after the patient was seen, as this information can be updated by other users. Medical History Maternal obesity affecting , antepartum contractions Headache Nausea and vomiting during Vaginal bleeding during Abdominal pain affecting , antepartum Gall stones Vulvar lesion Migraines Irritable bowel syndrome (IBS) History of gastroesophageal reflux (GERD) Hemorrhoid LINDEN II (cervical intraepithelial neoplasia II) LGSIL on Pap smear of cervix Surgical History History of S/P History of removal of skin mole Hx of colonoscopy Hx of nasal septoplasty Hx of wisdom tooth extraction Hx of cosmetic plastic surgery Family History Grandmother Family history of kidney stone Family history of cancer Family/Other Family history of kidney stone Family history of hyperlipidemia Family history of cancer Grandfather Family history of asthma Family history of COPD (chronic obstructive pulmonary disease) Family history of hyperlipidemia Family history of hypertension Family history of cancer Grandfather Family history of hypertension Family history of cancer Grandmother Family history of stroke Family history of hypertension Family history of cancer Father Family history of hypertension Social History Smoking Status: Never smoker second hand exposure: No alcohol intake: never substance use type: denies use current occupational status: employed Travel in the last 8 weeks?: None adopted: No household members: spouse and children housing: house marital status: number of children: 3 current occupation: [employer] current occupational exposures/hazards: No caffeine: Yes do you feel safe at home: Yes victim of physical abuse: No victim of emotional abuse: No victim of sexual abuse: No Have you lived/traveled outside US in past 30 days?: No Contact w/someone who lives/traveled outside US past 30 days?: No Exposure to someone with infectious disease in past 14 days?: No Do you have a fever (greater than 100.4 F or 38 C)?: No Have you tested positive for COVID-19?: No Exposed to someone with COVID-19 in past 14 days?: No Do you have a sore throat?: No Do you have a cough?: No Do you have any weakness?: No Do you have any diarrhea?: No Are you experiencing any unusual bleeding?: No Do you have any muscle aches/pain?: No Do you have any abdominal pain?: No Are you experiencing loss of taste or smell?: No Other Medical History Have you received the Flu Vaccine for this season: No Have you received the Pneumonia Vaccine: No Review of Systems Review of Systems Review of systems:: pertinent systems reviewed and negative unless documented below *Gastrointestinal Gastrointestinal: Reports abdominal pain (intermittent RUQ pain, nause/vomiting and diarrhea), Reports diarrhea (intermittent), Reports nausea (intermittent) and Reports vomiting (intermittent) Meds Home Medications and Allergies Home Medications ?Medication ?Instructions ?Recorded ?Confirmed ?Type PNV no.151-iron 27 mg-folic 800 1 cap PO DAILY #90 caps 08/21/23 10/14/24 Rx mcg-omega3 260 dl-ghi-vhl-fish capsule ondansetron 4 mg disintegrating 4 mg PO Q8H PRN nausea and 08/06/24 10/14/24 Rx tablet vomiting #30 tabs nitrofurantoin 100 mg PO BID 10 days #20 caps 10/06/24 10/14/24 Rx monohydrate/macrocrystals 100 mg capsule (Macrobid) New Prescriptions to Start Prescriptions: Allergies Allergy/AdvReac Type Severity Reaction Status Date / Time naproxen Allergy Severe Heart Verified 10/06/24 14:54 Palpitations OB - H&P: Exam Physical Exam Vital signs: Temp Pulse Resp BP Pulse Ox O2 Del Method 98.4 F 98 H 16 106/69 L 96 Room Air 10/14/24 05:54 10/14/24 05:54 10/14/24 05:54 10/14/24 05:54 10/14/24 05:54 10/14/24 05:54 Constitutional no acute distress and cooperative Routine HEENT Exam Head: Present normocephalic and atraumatic Eye: Absent conjunctivae pink ENT: Present mucous membranes moist Routine Neck Exam Present full ROM Routine Respiratory Exam Present CTA bilaterally and normal respiratory effort Routine Cardiovascular Exam Present RRR Routine Abdominal Exam Present soft (Gravid); Absent tenderness Routine Rectal Exam Patient deferred: visual exam Routine Exam External: Present normal urethra appearance; Absent erythema, swelling, tenderness, lesions, vulvar erythema or vulvar tenderness Comments: + pelvic pressure, contractions Routine Psychiatric Exam Present normal affect and cooperative OB - Results Labs Labs: Short CBC 10/14/24 Range/Units 05:28 WBC 8.7 (4.8-10.8) K/mm3 Hgb 10.8 L (12.2-16.2) g/dL Hct 31.9 L (37.0-47.0) % Plt Count 284 (142-424) K/mm3 Urine 10/14/24 Range/Units 05:10 Urine Color Yellow (Yellow) Urine Appearance Clear (Clear) Urine pH 7.0 (5.0-8.5) Ur Specific [place] 1.010 (1.005-1.030) Urine Protein Negative (Negative) Urine Glucose (UA) Negative (Negative) OB - A/P Antepartum (1) Maternal obesity affecting , antepartum: Status: Acute (2) Abdominal pain affecting , antepartum: Status: Acute (3) Gall stones: Status: Acute (4) History of : Status: Acute Additional Plan Additional Information:: Admit to [facility] for scheduled repeat Reviewed risks, benefits, alternatives, expectations and possible complications of surgery. All questions addressed and answered. She voiced understanding of risks and possible complications. Consent form signed. Proceed with scheduled repeat
--- NOTE | 2024-10-14 07:38 | P.CONPHA_ITS ---
Pharmacy Intervention Comments: MEDICATION RECONCILIATION COMPLETED ON PATIENT USING EXTERNAL FILL HISTORY FROM PHARMACY AND LIST FROM FURRIER DESIGNER OFFICE. -MARISA LEED
--- NOTE | 2024-10-14 07:38 | HMH.PHAINT1 ---
Pharmacy Intervention Comments: MEDICATION RECONCILIATION COMPLETED ON PATIENT USING EXTERNAL FILL HISTORY FROM PHARMACY AND LIST FROM BATCH PLANT OPERATOR OFFICE. -MARISA LEED
[2024-10-14] MEDS: CEFAZOLIN 2GM VIAL 2 GM (07:40)
--- NOTE | 2024-10-14 08:51 | P.OP_ITS ---
Date of procedure: 10/14/24 Pre-op Diagnosis:: 1. IUP at 39w0d 2. History of x 1 3. Maternal obesity 4. Abdominal pain in 5. Gallstones 6. Recurrent UTIs in Post-op Diagnosis:: 1. IUP at 39w0d 2. History of x 1 3. Maternal obesity 4. Abdominal pain in 5. Gallstones 6. Recurrent UTIs in Procedure performed:: Repeat Low Transverse Section Surgeon:: Farzaneh Taylor DO Conference Translator(s):: Lamonte Abreu MD ELECTRICAL PANEL BUILDER:: Other (RUBY Robb) Anesthesia: spinal Estimated blood loss (mL): 500 Clinical Note:: Mrs Domitila Mendoza is a 29 yo at 39w0d who presents to [facility] L&D for scheduled repeat . She has had good care. History of x 1. complicated by maternal obesity, recurrent UTIs and abdominal pain secondary to gall stones. Operative findings:: 1. Live male baby, Eb Gutiérrez, weight 7 lb 9 oz with APGARs 8 (1 min), 9 (5 min) 2. Grossly normal appearing uterus, bilateral fallopian tubes and ovaries Operative note:: The risks, benefits and alternatives of the procedure were reviewed with the patient. Informed consent was obtained. Patient was taken to the operating room where spinal anesthesia was placed. The patient received 2 grams of Ancef preoperatively. Patient was placed in dorsal supine position with a leftward tilt. SCDs in place. Barrow catheter was inserted and draining clear urine prior to the start of the procedure. heart tones were obtained. Patient was then prepped and draped in normal sterile fashion. Allis clamp test was performed to ensure adequate anesthesia. A Pfannenstiel skin incision was made 2 cm above pubic symphysis. This was carried through to underlying layer of fascia. Fascia was incised in midline, extended laterally with Hayes scissors. Superior aspect of fascial incision was grasped with two Hafsa clamps, elevated up, and rectus muscle dissected off bluntly and sharply with Hayes scissors. The retcus muscle was then in the midline and the peritoneum was entered bluntly with a digit. Peritoneal incision was then extended superiorly and inferiorly with good visualization of the bladder. Nathan retractor was inserted. The lower uterine segment was incised in a transverse fashion. Clear amniotic fluid was noted. Head was delivered without difficulty. Remainder of body was delivered without difficulty. Mouth and nares were bulb suctioned. Spontaneous cry was noted. Delayed cord clamping was performed for 60 seconds. The umbilical cord was clamp ed and cut. The infant was handed to awaiting pediatric staff in stable condition. Dr. Mccallum was present. Apgars were 8(1 min), 9(5 min). Cord blood was obtained. Gentle traction on the umbilical cord and uterine fundal massage delivered the placenta. Placenta was intact. Multiple calcifications noted on placenta. Uterus was cleared of all clots and debris with a moist laparotomy sponge. Corners of the uterine incision were grasped with Allis clamps. The uterine incision was reapproximated with # 1 Vicryl suture in a running, locked stitch. Second layer of the same stitch was used to imbricate the incision. Vesicouterine peritoneum was reapproximated in a running locked stitch with 0- Vicryl suture. Small amount of oozing noted. Surgicel gel foam placed along uterine incision. Hemostasis was noted. Posterior cul-de-sac was cleaned with moist laparotomy sponge. Gutters cleared of all clots and debris with a moist laparotomy sponge. At this point all instruments and sponges were removed from the pelvis.? The peritoneum was grasped with Monica clamps x 3. The peritoneum was reapproximated with 0 Vicryl suture in a running stitch. Small oozing noted along rectus muscles. Surgicel powder applied over muscles. The corners of the fascia were grasped with Hafsa clamps, and the fascia was reapproximated with two # 1 Vicryl suture overlapped to the right of midline. Subcutaneous tissue was irrigated with clear return of fluids. The subcutaneous tissue was reapproximated with 3-0 Vicryl. The skin was reapproximated with Insorb rocky. Steri strips and Telfa were placed over closed Pfannenstiel skin incision. At the end of the procedure, the uterus was firm with minimal vaginal bleeding. Patient tolerated the procedure well. Instrument, sponges and needle counts were correct x 2. Mom and baby were transported to recovery room in stable condition. Condition: stable Disposition: floor Specimens:: 1. Cord blood Complications:: None
--- NOTE | 2024-10-14 08:53 | EXP.ANES.I ---
[facility] Anesthesia Record Part I Anesthesia Record I Intake, IV Amount: 1,500 Hydration: Adequate Estimated blood loss (mL): 500 Urine output (mL): 200 (clear yellow) Blood Pressure: 101/52 SaO2: 98 Pulse Rate: 90 Airway Patency: Patent Respiratory Rate: 18 Temperature: 97 F Patient is:: Awake Stable to PACU at:: 08:55
[2024-10-14] MEDS: ACETAMINOPHEN 500MG TAB 1000 MG PO ×3 (10:19→22:56)
[2024-10-14] MEDS: diphenhydrAMINE 25MG CAPSULE 25 MG PO ×2 (10:20→12:17)
[2024-10-14] MEDS: OXYTOCIN/RINGERS LACTATE 30 UNITS/500 ML BAG 40 UNITS IV (10:22)
[2024-10-14 10:33] LABS: RPR W/RFX Titers Nonreactive (Nonreactive)
[2024-10-14] MEDS: NITROFURANTOIN 100MG CAPSULE 100 MG PO ×2 (12:59→20:35)
[2024-10-14] MEDS: KETOROLAC 30MG/ML VIAL 30 MG IV ×2 (14:10→20:35)
[2024-10-14] MEDS: CEFAZOLIN SODIUM 2 GM in 0.9 % SODIUM CHLORIDE 100 ML IV ×2 (14:11→22:56)
[2024-10-14] MEDS: OXYCODONE 5MG IMMEDIATE RELEASE TABLET 5 MG PO ×2 (14:11→20:02)
[2024-10-14] MEDS: SODIUM CHLORIDE 0.9% 10ML FLUSH SYRINGE 10 ML IV (14:13)
[2024-10-14] MEDS: PRENATAL MULTIVITAMIN W/IRON 1 EACH PO (17:13)
[2024-10-14] MEDS: SIMETHICONE 80MG CHEWABLE TABLET 160 MG PO (22:56)
[2024-10-15] MEDS: SIMETHICONE 80MG CHEWABLE TABLET 160 MG PO ×2 (03:10→10:31)
[2024-10-15] MEDS: KETOROLAC 30MG/ML VIAL 30 MG IV (03:10)
[2024-10-15] MEDS: ACETAMINOPHEN 500MG TAB 1000 MG PO ×3 (04:40→15:30)
[2024-10-15 04:45] VITALS: BP 94/58; PULSE 84; RESP 16; TEMP 36.4; O2SAT 96
[2024-10-15 06:33] LABS: Basophils % 0.3 % (0.1-2.0); Eosinophils # 0.2 Kmm3 (0.0-0.4); Eosinophils % 1.6 % (0.1-12.0); Hematocrit 25.9 % (37.0-47.0); Hemoglobin 8.7 g/dL (12.2-16.2); Immature Granulocytes # 0.08 10^3uL; Immature Granulocytes % 0.7 %; Lymphocytes # 3.3 K/mm3 (0.7-4.5); Mean Corpuscular HGB Conc 33.6 g/dL (31.8-35.4); Mean Corpuscular Hemoglobin 29.2 pg (27.0-31.2); Mean Corpuscular Volume 86.9 fl (81-99); Mean Platelet Volume 9.4 fl (7.4-10.4); Monocytes # 1.1 K/mm3 (0.1-1.0); Monocytes % 9.1 % (1.7-9.3); Neutrophils # 7.5 K/mm3 (1.8-7.8); Neutrophils % 61.3 % (37.0-80.0); Nucleated Red Blood Cells # 0 10^3/uL; Nucleated Red Blood Cells % 0 %; Platelet Count 223 K/mm3 (142-424); Red Blood Count 2.98 M/mm3 (4.20-5.40); Red Cell Distribution Width 14.1 % (11.5-17.5); White Blood Count 12.2 K/mm3 (4.8-10.8)
--- NOTE | 2024-10-15 09:05 | EXP.ACUTE.PN ---
Subjective *Date: 10/15/24 *Time: 09:05 Interval history: POD # 1 s/p RLTCS Feeling well. Pain controlled. Breast and formula feeding. Lochia is appropriate. Voiding without difficulty and passing flatus. Tolerating regular diet. Denies fever/chills, chest pain and shortness of breath. No headaches, vision changes, lightheadedness/dizziness. No lower extremity swelling. Ambulating well ad keyla. Medical Exam Vital signs and Labs for Last 24 Hours: Vital Signs Temp Pulse Resp BP Pulse Ox O2 Del Method 10/15/24 04:45 97.6 F 84 16 94/58 L 96 Room Air 10/14/24 23:30 97.9 F 70 16 107/64 L 97 Room Air 10/14/24 20:10 97.7 F 80 18 107/67 L 97 Room Air 10/14/24 16:15 98.7 F 87 18 128/78 100 Room Air 10/14/24 13:15 90 123/87 100 Room Air 10/14/24 12:15 86 18 131/84 100 Room Air 10/14/24 11:45 97.7 F 75 149/89 H 100 Room Air 10/14/24 11:15 76 18 126/96 H 100 Room Air 10/14/24 10:45 83 18 123/87 100 Room Air 10/14/24 10:30 97.1 F L 77 18 131/84 100 Room Air 10/14/24 10:15 83 105/80 L 100 10/14/24 10:00 82 18 118/82 99 Room Air 10/14/24 09:45 84 18 123/90 98 Room Air 10/14/24 09:30 98.1 F 74 18 128/93 H 99 Room Air 10/14/24 09:25 98.1 F 84 18 128/80 99 Room Air 10/14/24 09:15 98.1 F 90 18 110/71 99 Room Air Laboratory Results - last 24 hr 10/14/24 05:28: RPR w/Rflx to Titer Nonreactive 10/15/24 05:43: WBC 12.2 H D, RBC 2.98 L, Hgb 8.7 L, Hct 25.9 L, MCV 86.9, MCH 29.2, MCHC 33.6, RDW 14.1, Plt Count 223, MPV 9.4, Neut % (Auto) 61.3, Lymph % (Auto) 27.0, [place] % (Auto) 9.1, Eos % (Auto) 1.6, Baso % (Auto) 0.3, Neut # (Auto) 7.5, Lymph # (Auto) 3.3, [place] # (Auto) 1.1 H, Eos # (Auto) 0.2, Baso # (Auto) 0.0 I & O for Labs for Last 24 Hours: Intake & Output 10/12/24 10/13/24 10/14/24 10/15/24 23:59 23:59 23:59 23:59 Intake Total 1500 / 1500 Balance 1500 / 1500 Weight 178 lb Head: Present atraumatic and normocephalic ENT: Present normal exam Neck: Present normal inspection and full ROM Respiratory: Present CTA bilaterally and normal respiratory effort Cardiac: Present Reg Rate and Rhythm GI: Present soft; Absent distention or tenderness Comments:: Pfannenstiel incision clean/dry/intact, steri strips in place. Uterine fundus firm and below umbilicus Rectal (female): Present deferred (female): Present deferred Extremities: Present normal inspection and full ROM Neuro: Present alert, awake and moves all extremities Assessment and Plan *Assessment and plan (1) S/P repeat low transverse : Status: Acute Category: Surgical Code(s): Z98.891 - History of uterine scar from previous surgery (2) Maternal obesity affecting , antepartum: Status: Acute Qualifiers: Obesity type affecting : unspecified obesity Qualified Code(s): O99.210 - Obesity complicating , unspecified trimester Category: Medical Code(s): O99.210 - Obesity complicating , unspecified trimester (3) Gall stones: Status: Acute Category: Medical Code(s): K80.20 - Calculus of gallbladder without cholecystitis without obstruction (4) Acute blood loss anemia: Status: Resolved Category: Medical Code(s): D62 - Acute posthemorrhagic anemia Plan Continue routine care Encouraged increased ambulation AM Hgb 8.7 (10.8 on admission) - Venofer 200 mg IV x 1 dose ordered Plan d/c home tomorrow, POD # 2
[2024-10-15] MEDS: NITROFURANTOIN 100MG CAPSULE 100 MG PO ×2 (09:25→21:07)
[2024-10-15] MEDS: IBUPROFEN 400 MG TABLET 800 MG PO ×2 (09:25→15:30)
[2024-10-15] MEDS: IRON SUCROSE COMPLEX 200 MG in 0.9 % SODIUM CHLORIDE 100 ML 220 MG IV (10:31)
--- NOTE | 2024-10-15 12:03 | P.PNANES_ITS ---
[facility] Anesthesia Record Part II Anesthesia Record Part II Discharge Time: 09:25 Destination: Surgical Day Care (OP Surgery) PACU nurse assessment reviewed?: Yes Patient Condition:: Good Anesthesia Complications:: None Swallowing reflex intact?: Yes Airway Patency: Patent Cyanosis?: No Blood Pressure: 128/80 SaO2: 99 Respiratory Rate: 18 Pulse Rate: 84 Temperature: 98.1 F Mental Status: Alert & Oriented Pain level:: 0 Nausea and/or vomitting:: None Intake, IV Amount: 0 Hydration: Adequate
[2024-10-15 12:04] VITALS: BP 128/80; PULSE 84; RESP 18; TEMP 36.7; O2SAT 99
[2024-10-15] MEDS: OXYCODONE 5MG IMMEDIATE RELEASE TABLET 5 MG PO ×2 (12:33→21:07)
[2024-10-15] MEDS: PRENATAL MULTIVITAMIN W/IRON 1 EACH PO (15:30)
[2024-10-15 20:32] VITALS: BP 106/66; PULSE 92; RESP 17; TEMP 36.4; O2SAT 96
[2024-10-16] MEDS: ACETAMINOPHEN 500MG TAB 1000 MG PO ×2 (01:02→09:05)
[2024-10-16] MEDS: IBUPROFEN 400 MG TABLET 800 MG PO ×2 (01:03→09:05)
[2024-10-16 05:00] VITALS: BP 109/76; PULSE 81; RESP 15; TEMP 36.4; O2SAT 96
[2024-10-16] MEDS: OXYCODONE 5MG IMMEDIATE RELEASE TABLET 5 MG PO (07:49)
[2024-10-16] MEDS: SENNA 8.6MG TABLET 8.6 MG PO (09:05)
[2024-10-16] MEDS: SIMETHICONE 80MG CHEWABLE TABLET 160 MG PO (09:05)
[2024-10-16] MEDS: NITROFURANTOIN 100MG CAPSULE 100 MG PO (09:05)
--- NOTE | 2024-10-16 09:33 | P.DS_ITS ---
General Admission date:: 10/14/24 Discharge date: 10/16/24 HPI HPI HPI: POD # 2 s/p RLTCS Feeling well. Pain controlled. Breast and formula feeding. Lochia is appropriate. Voiding without difficulty and passing flatus. Tolerating regular diet. Denies fever/chills, chest pain and shortness of breath. No headaches, vision changes, lightheadedness/dizziness. No lower extremity swelling. Ambulating well ad keyla. Hospital Course Hospital Course Hospital Course: Mrs Domitila Mendoza is a 29 yo at 39w0d who presents to [facility] for scheduled repeat . She has had good care. History of x 1. complicated by maternal obesity, recurrent UTIs and abdominal pain secondary to gall stones. She underwent repeat 10/14/24. She delivered a live male baby, Eb Gutiérrez, weight 7 lb 9 oz with APGARs 8 (1 min), 9 (5 min). EBL 500 mL. She did well /postoperatively. Pain controlled. POD # 1 Hgb 8.7. Venofer 200 mg IV was started but infiltrated half way through infusion. Breast and formula feeding. Light lochia. Voiding without difficulty and passing flatus . Tolerating regular diet. Denies fever/chills, chest pain and shortness of breath. No headaches, dizziness/lightheadedness or vision changes. Vital signs stable, afebrile. Heart regular rate and rhythm. Lungs clear to auscultation. Abdomen soft, nontender. No lower extremity swelling. Ambulating well ad keyla. Normal hospital course. She was discharged to home on POD # 2 with instructions to follow-up in the office in 1 week or sooner if needed. She will take ferrous sulfate daily. She has ferrous sulfate at home. Exam Data for Last 24 hours Vital signs and Labs for Last 24 Hours: Temp Pulse Resp BP Pulse Ox O2 Del Method 97.6 F 81 15 109/76 L 96 Room Air 10/16/24 05:00 10/16/24 05:00 10/16/24 05:00 10/16/24 05:00 10/16/24 05:00 10/16/24 05:00 I & O for Last 24 hours: Intake & Output 10/13/24 10/14/24 10/15/24 10/16/24 23:59 23:59 23:59 23:59 Intake Total 1500 / 1500 0 / 0 3000 / 3000 Balance 1500 / 1500 0 / 0 3000 / 3000 Weight 178 lb Microbiology Reports for the Last 24 Hours: Microbiology 10/14/24 07:40 Urine,Catheterized Urine Culture - Final No growth. 10/14/24 05:10 Urine,Catheterized Urine Culture - Final No growth. Constitutional Constitutional: no acute distress and cooperative *Routine HEENT Exam Head: Present normocephalic and atraumatic Eye: Absent conjunctivae pink ENT: Present mucous membranes moist *Routine Neck Exam Neck: Present full ROM *Routine Respiratory Exam Respiratory: Present CTA bilaterally and normal respiratory effort *Routine Cardiovascular Exam Cardiovascular: Present RRR *Routine Abdominal Exam Abdominal: Present soft; Absent tenderness or distended Comments: Pfannenstiel incision clean/dry/intact with steri strips in place *Routine Rectal Exam Patient deferred: visual exam *Routine Exam Patient deferred: external exam *Routine Extremities Exam Extremities: Present full ROM; Absent edema or calf tenderness *Routine Neurological Exam Neurological: Present alert, moving all extremities and normal speech Routine Psychiatric Exam Psychiatric: Present normal affect and cooperative DS: Diagnosis Discharge Diagnosis (1) S/P repeat low transverse : Status: Acute Code(s): Z98.891 - History of uterine scar from previous surgery (2) Maternal obesity affecting , antepartum: Status: Acute Code(s): O99.210 - Obesity complicating , unspecified trimester Qualifiers: Obesity type affecting : unspecified obesity Qualified Code(s): O99.210 - Obesity complicating , unspecified trimester (3) Gall stones: Status: Acute Code(s): K80.20 - Calculus of gallbladder without cholecystitis without obstruction (4) Acute blood loss anemia: Status: Resolved Code(s): D62 - Acute posthemorrhagic anemia Meds Home Medications and Allergies Home Medications ?Medication ?Instructions ?Recorded ?Confirmed ?Type PNV no.151-iron 27 mg-folic 800 1 cap PO DAILY #90 caps 08/21/23 10/14/24 Rx mcg-omega3 260 np-sfh-pjf-fish capsule nitrofurantoin 100 mg PO BID 10 days #20 caps 10/06/24 10/14/24 Rx monohydrate/macrocrystals 100 mg capsule (Macrobid) ondansetron 4 mg disintegrating 4 mg PO Q8HP PRN nausea and 10/14/24 10/14/24 History tablet vomiting ibuprofen 800 mg tablet 800 mg PO Q8H PRN pain #20 tabs 10/16/24 Rx oxycodone 5 mg tablet 5 mg PO Q4HP PRN Moderate Pain 10/16/24 Rx (4-6) #20 tabs New Prescriptions to Start Prescriptions: ibuprofen Farzaneh Taylor oxycodone Farzaneh Taylor Allergies Allergy/AdvReac Type Severity Reaction Status Date / Time naproxen Allergy Severe Heart Verified 10/06/24 14:54 Palpitations Discharge Plan Disposition Patient Disposition: Home, Self-Care Condition: Good Discharge Order Discharge Orders: Discharge Order (Routine); Ordered 10/16/24 Ordered By: Farzaneh Taylor Follow up Plan Follow up with: Farzaneh Taylor DO [Staff Physician] - 10/23/24 10:30 am Prescriptions/Medication Reconciliation: New oxycodone 5 mg Tablet 5 mg PO Q4HP PRN (Reason: Moderate Pain (4-6)) Qty: 20 0RF ibuprofen 800 mg tablet 800 mg PO Q8H PRN (Reason: pain) Qty: 20 0RF Continued [id number] 27 mg iron-800 mcg-260 mg capsule 1 cap PO DAILY Qty: 90 3RF nitrofurantoin monohyd/m-cryst [Macrobid] 100 mg capsule 100 mg PO BID 10 Days Qty: 20 0RF Rx Instructions: must administer with a meal/food ondansetron 4 mg tablet,disintegrating 4 mg PO Q8HP PRN (Reason: nausea and vomiting) Problem Reconciliation Problems Reviewed?: Yes Patient Discharge Instructions ACTIVITY: Limited activity DIET: continue same diet and regular diet Additional Instructions: Congratulations!! Discharge: 1. Take 800 mg Ibuprofen every 8 hours as needed for pain. You can also take 500-1000 mg of Tylenol in between doses, every 6-8 hours. If pain persists you can take Oxycodone 5 mg, 1 tablet every 4-6 hours or more as needed. 2. Nothing in the vagina for 6 weeks - no intercourse, douching or tampons. No tub baths/hot tubs or swimming pools - Drink plenty of fluids. - No strenuous activity for 6 weeks; no driving for 1 week or while taking Oxycodone - Don't lift anything heavier than your in a pumpkin seat 3. Reasons to return to L&D or call On-Call doctor - fever (greater than 100.4) - heavy vaginal bleeding (soaking through 1 pad in less than 2 hours) - vaginal discharge (malodorous and/or purulent) - severe headaches not resolved by medication or rest 4. depression/blues - Normal to feel anxious/overwhelmed for first 2 weeks - Talk to your doctor if: severe anxiety, trouble bonding with baby, withdrawing from other family members, thoughts of harming yourself or others Patient Instructions: Depression, Hemorrhage, DI for , DI for Pre-eclampsia, [facility] Post Discharge Instructions Print Language: Guinean Providers Primary Care Provider: Francois Thomas Admit Provider: Farzaneh Taylor Attending Provider: Farzaneh Taylor
== END 2024-10-16 12:14 | disposition home or self-care (01) | DRG 787 ==
PROVIDERS: Admitting Provider Obstetrics & Gynecology; PCP Internal Medicine Adolescent Medicine; Visit Provider Obstetrics & Gynecology
PROC: 10D00Z1 Extraction of Products of Conception, Low, Open Approach (ICD-10-PCS; CPT 59514; principal; 2024-10-14 07:30)
DX: O34.211 Maternal care for low transverse scar from previous cesarean delivery (principal); D62 Acute posthemorrhagic anemia; N85.8 Other specified noninflammatory disorders of uterus; Z3A.39 39 weeks gestation of pregnancy; Z37.0 Single live birth; O90.81 Anemia of the puerperium; O99.613 Diseases of the digestive system complicating pregnancy, third trimester; K80.20 Calculus of gallbladder without cholecystitis without obstruction; O99.214 Obesity complicating childbirth; E66.9 Obesity, unspecified
CPT/HCPCS: 36415; 59025; 81001; 85025; 86592; 86850; 87086; 96374; C9144; J0690; J1100; J1756; J1885; J2405; J3010; J7120

== ENCOUNTER 2025-05-19 09:15 | Outpatient (CLI) | payer BC, SELFPAY ==
--- OUTSIDE RECORDS SUMMARY | 2025-05-19 09:24 | XMS_ITS | Clinical Summary ---
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 Role Phone Unavailable Primary Care Provider Unavailabl e Social History Tobacco Use Types Packs/Day Years Used Date Smoking Tobacco: Never Assessed Comments Unknown Sex and Gender Information Value Date Recorded Sex Assigned at Not on file Legal Sex Female 10:36 AM EDT Gender Identity Not on file Sexual Orientation Not on file Plan of Treatment Health Maintenance Due Date Last Done Comments [facility]-Depression Screening 1993 [facility]-Infant/Child/Adol SDOH Screenings 1993 [facility]-Varicella Vaccines (1 of 2 - 13+ 2-dose series) 2006 [facility]- SDOH Screenings 09/23/2011 [facility]-Adult SDOH Screenings 09/23/2011 [facility]-DTaP,Tdap,and Td Vaccine s (1 - Tdap) 2012 [facility]-Hepatitis B Vaccines (1 of 3 - 19+ 3-dose series) 2012 [facility]-Pap Smear 2014 [facility]-Cervical Cancer Screening 09/23/2023 [facility]-HPV/Cotest 09/23/2023 [id number] Vaccine (1 - 20 25-26 season) 2025 [facility]-Influenza Vaccine (#1) 2025 [facility]-Zoster Vaccines (1 of 2) 09/23/2043 HPV Vaccines (No Doses Required) Completed [facility]-HIB Vaccines Aged Out No longer e ligible based on patient's age to complete this topic [facility]-Hepatitis A Vaccines Aged Out No longer eligible based on patient's age to complete this topic [facility]-IPV Vaccines Aged Out No longer e ligible based on patient's age to complete this topic [facility]-Pneumococcal Vaccine: Pediatrics (0 to 5 Years) and At-Risk Patients (6 to 49 Years) Aged Out No long er eligible based on patient's age to complete this topic [facility]-Rotavirus Vaccines Aged Out No lo nger eligible based on patient's age to complete this topic Insurance ANTH
[2025-05-19 10:08] LABS: Hematocrit 42.3 % (37.0-47.0); Hemoglobin 14.0 g/dL (12.2-16.2); Mean Corpuscular HGB Conc 33.1 g/dL (31.8-35.4); Mean Corpuscular Hemoglobin 30.4 pg (27.0-31.2); Mean Corpuscular Volume 91.8 fl (81-99); Nucleated Red Blood Cells % 0 %; Platelet Count 337 K/mm3 (142-424); Red Blood Count 4.61 M/mm3 (4.20-5.40); Red Cell Distribution Width-SD 41.5 fL; White Blood Count 8.4 K/mm3 (4.8-10.8)
[2025-05-19 11:07] LABS: Alanine Aminotransferase 29 U/L (12-78); Albumin Level 4.7 g/dl (3.5-5.0); Albumin/Globulin Ratio 1.5 (1.1-1.8); Alkaline Phosphatase 62 U/L (38-126); Anion Gap 10.5 mEq/L (5-15); Aspartate Amino Transferase 27 U/L (14-36); Bilirubin,Total 1.0 mg/dl (0.2-1.3); Blood Urea Nitrogen 12 mg/dl (7-17); Calcium 10.2 mg/dl (8.4-10.2); Carbon Dioxide 24 mmol/L (22.0-30.0); Chloride 108 mmol/L (98-107); Cholesterol 185 mg/dl (140-200); Creatinine,Serum 0.90 mg/dl (0.52-1.04); Estimated Glomerular Filt Rate 73 ml/min (>60); GFR (African American) 88 ML/MIN (>60); Globulin 3.2 g/dL (1.3-3.2); Glucose 89 mg/dl (74-100); HDL Cholesterol 44 mg/dl (40-60); Potassium 4.5 mmoL/L (3.5-5.1); Sodium 138 mmol/L (136-145); Total Protein,Serum 7.9 g/dl (6.3-8.2); Triglycerides 131 mg/dl (30-150)
[2025-05-19 11:35] LABS: Thyroid Stimulating Hormone 1.11 uIU/mL (0.465-4.68)
[2025-05-19 11:55] LABS: Hemoglobin A1C 4.9 % (4.0-6.0)
== END 2025-05-19 23:59 | disposition home or self-care (01) ==
LOC: LAB 09:18
PROVIDERS: PCP Internal Medicine Adolescent Medicine; Visit Provider Nurse Practitioner Family
DX: E66.09 Other obesity due to excess calories (principal); Z13.0 Encounter for screening for diseases of the blood and blood-forming organs and certain disorders involving the immune mechanism; Z13.29 Encounter for screening for other suspected endocrine disorder; Z13.6 Encounter for screening for cardiovascular disorders; Z13.220 Encounter for screening for lipoid disorders
CPT/HCPCS: 36415; 80053; 80061; 83036; 84443; 85027